=== PATIENT | female | born 1955 | race Caucasian/White ===

== ENCOUNTER 2017-04-22 16:51 | Inpatient (IN) | payer MEDICARE, BC ==
--- NOTE | 2017-04-22 17:07 | EDM.PDOC ---
[id number] Complaint: Behavioral/Psych Stated Complaint: [facility] Time Seen by Provider: 04/22/17 17:03 Source of Information: Reports: EMS History Limitations: Reports: Altered Mental Status - History of Present Illness INITIAL COMMENTS - FREE TEXT/NARRATIVE: Brought in by EMS with increased confusion over past few days. She is unable to give any history. Per staff talking to , concerned that she has been taking some of his medications. Onset: Gradual Duration: Day(s): (2) - Related Data Allergies Allergy/AdvReac Type Severity Reaction Status Date / Time morphine Allergy Unknown Hives Verified 04/24/17 13:06 Penicillins Allergy Unknown Hives Verified 04/24/17 13:06 ranitidine HCl [From Zantac] Allergy Unknown Swelling Verified 04/24/17 13:06 latex Allergy Cannot Verified 04/24/17 13:06 Remember oxycodone Allergy Rash Verified 04/24/17 13:06 Home Meds: Home Meds Carisoprodol [Soma] 350 mg PO QID PRN 01/01/15 [History] predniSONE [Prednisone] 10 mg PO DAILY 01/01/15 [History] Estradiol 1.5 mg PO DAILY 01/03/15 [History] Levothyroxine [Synthroid] 100 mcg PO DAILY 01/03/15 [History] Amitriptyline [Elavil] 25 mg PO BEDTIME 08/07/15 [History] Zolpidem Tartrate 10 mg PO BEDTIME 08/09/15 [History] Citalopram Hydrobromide [Celexa] 20 mg PO DAILY 09/26/15 [History] Pumpkin Seed Extract/Soy Germ [Azo Bladder Control Capsule] 300 mg PO DAILY [History] Hydrocodone/Acetaminophen [Hydrocodon-Acetaminoph 7.5-325] 2 tab PO Q4H PRN 12/23 [History] Multivitamin W/Iron, Minerals [Flintstones Complete] 1 each PO DAILY 09/28/16 [ History] Past Medical History HEENT History: Reports: Cataract Respiratory History: Reports: Bronchitis, Recurrent Gastrointestinal History: Reports: Bowel Obstruction, GERD, Pancreatitis Other Gastrointestinal History: "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" Other Genitourinary History: urethral stricture - cystoscopy - which was several years ago [employer] History: Reports: Neurological History: Reports: MS Psychiatric History: Reports: Addiction, Anxiety Endocrine/Metabolic History: Reports: Diabetes, Type II, Other (See Below) Other Endocrine/Metabolic History: thyroid disease Hematologic History: Reports: Anemia, B12 Deficiency, Blood Transfusion(s) Immunologic History: Reports: SLE Dermatologic History: Reports: Psoriasis - Infectious Disease History Infectious Disease History: Reports: Chicken Pox - Past Surgical History HEENT Surgical History: Reports: Cataract Surgery Female Surgical History: Reports: Hysterectomy Other Musculoskeletal Surgeries/Procedures:: pin in left hip after fx, plate in left arm, plate in left shoulder blade Social & Family History - Tobacco Use Smoking Status *Q: Current Every Day Smoker Years of Tobacco use: 40 Packs/Tins Daily: 1 Used Tobacco, but Quit: No Month Tobacco Last Used: August Second Hand Smoke Exposure: No - Caffeine Use Caffeine Use: Reports: Coffee - Alcohol Use Days Per Week of Alcohol Use: 0 - Recreational Drug Use Recreational Drug Use: No ED ROS GENERAL - Review of Systems Review Of Systems: Unable To Obtain - Physical Exam Exam Limited By: Altered Mental Status General Appearance: Mild Distress, Cachetic, Other (Dirty, dishelved, taking her clothes off) Ears: Normal External Exam, Normal Canal, Normal TMs Nose: Normal Inspection, Normal Mucosa Throat/Mouth: Normal Inspection Head Exam: Atraumatic, Normocephalic Neck: Normal Inspection, Supple Respiratory/Chest: No Respiratory Distress Cardiovascular: Normal Peripheral Pulses, Regular Rate, Rhythm, No Edema, No Murmur GI/Abdominal: Soft, Non-Tender Neuro Exam (Abbreviated): Confused, Disoriented Extremities: Normal Inspection Psychiatric: Other (confused, delusional) Skin Exam: Other (Bruise on left shoulder. Old scars across back. Abrasion and skin tears on right arm.) Course - Vital Signs Last Recorded V/S: Last Vital Signs Temp 36.6 C 04/23/17 08:00 Pulse 88 04/23/17 05:30 Resp 16 04/23/17 08:00 BP 139/70 04/23/17 08:00 Pulse Ox 98 04/23/17 08:00 - Orders/Labs/Meds Labs: Laboratory Tests 04/22/17 04/22/17 04/22/17 Range/Units 16:58 16:58 16:58 WBC 13.2 H (4.5-11.0) K/uL RBC 3.42 (3.30-5.50) M/uL Hgb 12.3 (12.0-15.0) g/dL Hct 36.2 (36.0-48.0) % MCV 106 H (80-98) fL MCH 36 H (27-31) pg MCHC 34 (32-36) % Plt Count 331 (150-400) K/uL Neut % (Auto) 88 H (36-66) % Lymph % (Auto) 7 L (24-44) % [place] % (Auto) 4 (2-6) % Eos % (Auto) 0 L (2-4) % Baso % (Auto) 0 (0-1) % Sodium 135 L (140-148) mmol/L Potassium 4.1 (3.6-5.2) mmol/L Chloride 98 L (100-108) mmol/L Carbon Dioxide 24 (21-32) mmol/L Anion Gap 17.1 H (5.0-14.0) mmol/L BUN 9 (7-18) mg/dL Creatinine 0.8 (0.6-1.0) mg/dL Est Cr Clr Drug Dosing TNP Estimated GFR (MDRD) > 60 (>60) Glucose 181 H (74-106) mg/dL Calcium 8.7 (8.5-10.1) mg/dL Total Bilirubin 0.5 D (0.2-1.0) mg/dL AST 38 H D (15-37) U/L ALT 30 (12-78) U/L Alkaline Phosphatase 49 (46-116) U/L Total Protein 6.5 (6.4-8.2) g/dL Albumin 3.5 (3.4-5.0) g/dL Globulin 3.0 (2.3-3.5) g/dL Albumin/Globulin Ratio 1.2 (1.2-2.2) Urine Color Urine Appearance Urine pH (4.5-8.0) Ur Specific [place] (1.008-1.030) Urine Protein (NEGATIVE) mg/dL Urine Glucose (UA) (NEGATIVE) mg/dL Urine Ketones (NEGATIVE) mg/dL Urine Occult Blood (NEGATIVE) Urine Nitrite (NEGATIVE) Urine Bilirubin (NEGATIVE) Urine Urobilinogen (NORMAL) mg/dL Ur Leukocyte Esterase (NEGATIVE) Urine RBC (0-5) Urine WBC (0-5) Ur Epithelial Cells Amorphous Sediment Urine Bacteria Urine Mucus Salicylates (2.0-20.0) mg/dL Urine Opiates Screen (NEGATIVE) Ur Oxycodone Screen (NEGATIVE) Urine Methadone Screen (NEGATIVE) Ur Propoxyphene Screen (NEGATIVE) Acetaminophen (10.0-30.0) ug/mL Ur Barbiturates Screen (NEGATIVE) Ur Tricyclics Screen (NEGATIVE) Ur Phencyclidine Scrn (NEGATIVE) Ur Amphetamine Screen (NEGATIVE) U Methamphetamines Scrn (NEGATIVE) Urine MDMA Screen (NEGATIVE) U Benzodiazepines Scrn (NEGATIVE) U Cocaine Metab Screen (NEGATIVE) U Marijuana (THC) Screen (NEGATIVE) Ethyl Alcohol < 3 mg/dL 04/22/17 04/22/17 04/22/17 Range/Units 17:02 17:59 18:20 WBC (4.5-11.0) K/uL RBC (3.30-5.50) M/uL Hgb (12.0-15.0) g/dL Hct (36.0-48.0) % MCV (80-98) fL MCH (27-31) pg MCHC (32-36) % Plt Count (150-400) K/uL Neut % (Auto) (36-66) % Lymph % (Auto) (24-44) % [place] % (Auto) (2-6) % Eos % (Auto) (2-4) % Baso % (Auto) (0-1) % Sodium (140-148) mmol/L Potassium (3.6-5.2) mmol/L Chloride (100-108) mmol/L Carbon Dioxide (21-32) mmol/L Anion Gap (5.0-14.0) mmol/L BUN (7-18) mg/dL Creatinine (0.6-1.0) mg/dL Est Cr Clr Drug Dosing Estimated GFR (MDRD) (>60) Glucose (74-106) mg/dL Calcium (8.5-10.1) mg/dL Total Bilirubin (0.2-1.0) mg/dL AST (15-37) U/L ALT (12-78) U/L Alkaline Phosphatase (46-116) U/L Total Protein (6.4-8.2) g/dL Albumin (3.4-5.0) g/dL Globulin (2.3-3.5) g/dL Albumin/Globulin Ratio (1.2-2.2) Urine Color Urine Appearance Urine pH (4.5-8.0) Ur Specific [place] (1.008-1.030) Urine Protein (NEGATIVE) mg/dL Urine Glucose (UA) (NEGATIVE) mg/dL Urine Ketones (NEGATIVE) mg/dL Urine Occult Blood (NEGATIVE) Urine Nitrite (NEGATIVE) Urine Bilirubin (NEGATIVE) Urine Urobilinogen (NORMAL) mg/dL Ur Leukocyte Esterase (NEGATIVE) Urine RBC (0-5) Urine WBC (0-5) Ur Epithelial Cells Amorphous Sediment Urine Bacteria Urine Mucus Salicylates 5.2 (2.0-20.0) mg/dL Urine Opiates Screen Positive H (NEGATIVE) Ur Oxycodone Screen Positive H (NEGATIVE) Urine Methadone Screen Negative (NEGATIVE) Ur Propoxyphene Screen Negative (NEGATIVE) Acetaminophen 5.0 L (10.0-30.0) ug/mL Ur Barbiturates Screen Negative (NEGATIVE) Ur Tricyclics Screen Positive H (NEGATIVE) Ur Phencyclidine Scrn Negative (NEGATIVE) Ur Amphetamine Screen Negative (NEGATIVE) U Methamphetamines Scrn Negative (NEGATIVE) Urine MDMA Screen Negative (NEGATIVE) U Benzodiazepines Scrn Negative (NEGATIVE) U Cocaine Metab Screen Negative (NEGATIVE) U Marijuana (THC) Screen Negative (NEGATIVE) Ethyl Alcohol mg/dL 04/22/17 Range/Units 18:20 WBC (4.5-11.0) K/uL RBC (3.30-5.50) M/uL Hgb (12.0-15.0) g/dL Hct (36.0-48.0) % MCV (80-98) fL MCH (27-31) pg MCHC (32-36) % Plt Count (150-400) K/uL Neut % (Auto) (36-66) % Lymph % (Auto) (24-44) % [place] % (Auto) (2-6) % Eos % (Auto) (2-4) % Baso % (Auto) (0-1) % Sodium (140-148) mmol/L Potassium (3.6-5.2) mmol/L Chloride (100-108) mmol/L Carbon Dioxide (21-32) mmol/L Anion Gap (5.0-14.0) mmol/L BUN (7-18) mg/dL Creatinine (0.6-1.0) mg/dL Est Cr Clr Drug Dosing Estimated GFR (MDRD) (>60) Glucose (74-106) mg/dL Calcium (8.5-10.1) mg/dL Total Bilirubin (0.2-1.0) mg/dL AST (15-37) U/L ALT (12-78) U/L Alkaline Phosphatase (46-116) U/L Total Protein (6.4-8.2) g/dL Albumin (3.4-5.0) g/dL Globulin (2.3-3.5) g/dL Albumin/Globulin Ratio (1.2-2.2) Urine Color Yellow Urine Appearance Clear Urine pH 7.0 (4.5-8.0) Ur Specific [place] 1.010 (1.008-1.030) Urine Protein Negative (NEGATIVE) mg/dL Urine Glucose (UA) Normal (NEGATIVE) mg/dL Urine Ketones Negative (NEGATIVE) mg/dL Urine Occult Blood Negative (NEGATIVE) Urine Nitrite Negative (NEGATIVE) Urine Bilirubin Negative (NEGATIVE) Urine Urobilinogen Normal (NORMAL) mg/dL Ur Leukocyte Esterase Negative (NEGATIVE) Urine RBC 0-5 (0-5) Urine WBC 0-5 (0-5) Ur Epithelial Cells Rare Amorphous Sediment Not seen Urine Bacteria Few Urine Mucus Not seen Salicylates (2.0-20.0) mg/dL Urine Opiates Screen (NEGATIVE) Ur Oxycodone Screen (NEGATIVE) Urine Methadone Screen (NEGATIVE) Ur Propoxyphene Screen (NEGATIVE) Acetaminophen (10.0-30.0) ug/mL Ur Barbiturates Screen (NEGATIVE) Ur Tricyclics Screen (NEGATIVE) Ur Phencyclidine Scrn (NEGATIVE) Ur Amphetamine Screen (NEGATIVE) U Methamphetamines Scrn (NEGATIVE) Urine MDMA Screen (NEGATIVE) U Benzodiazepines Scrn (NEGATIVE) U Cocaine Metab Screen (NEGATIVE) U Marijuana (THC) Screen (NEGATIVE) Ethyl Alcohol mg/dL Meds: Medications Discontinued Medications Generic Name Dose Route Start Last Admin Trade Name Freq PRN Reason Stop Dose Admin Acetaminophen 650 mg 04/23/17 01:34 Tylenol PO Q4H PRN Pain (Mild 1-3)/fever Hydrocodone Bitart/Acetaminophen 2 tab 04/23/17 01:34 [place] 325-7.5 Mg PO Q4H PRN Pain Citalopram Hydrobromide 20 mg 04/23/17 09:00 04/23/17 08:53 Celexa PO 20 mg DAILY NORM Administration Diphenhydramine HCl 25 mg 04/22/17 17:13 04/22/17 17:26 Benadryl IM 04/22/17 17:14 25 mg ONETIME ONE Administration Divalproex Sodium 250 mg 04/23/17 08:00 04/23/17 08:53 Divalproex Sodium PO 250 mg TIDMEALS NORM Administration Docusate Sodium 100 mg 04/23/17 01:34 Colace PO BID PRN Constipation Enoxaparin Sodium 40 mg 04/23/17 01:00 04/23/17 02:16 Lovenox SUBCUT 40 mg DAILY@0100 NORM Administration Enoxaparin Sodium 40 mg 04/23/17 22:00 Lovenox SUBCUT Q24H NORM Estradiol 1.5 mg 04/23/17 09:00 04/23/17 08:53 Estradiol PO 1.5 mg DAILY NORM Administration Furosemide 20 mg 04/23/17 09:30 04/23/17 09:43 Lasix IV 04/23/17 09:31 20 mg ONETIME ONE Administration Haloperidol Lactate 5 mg 04/22/17 17:13 04/22/17 17:27 Haldol IM 04/22/17 17:14 5 mg ONETIME ONE Administration Haloperidol Lactate 2 mg 04/23/17 01:34 Haldol IVPUSH Q2H PRN Agitation Hydrocortisone Sodium Succinate 100 mg 04/23/17 01:34 04/23/17 02:16 Solu-Cortef IVPUSH 04/23/17 01:35 100 mg ONETIME ONE Administration Sodium Chloride 1,000 mls @ 300 mls/hr 04/22/17 22:00 04/22/17 22:39 Normal Saline IV 300 mls/hr ASDIRECTED NORM Administration Sodium Chloride 1,000 mls @ 125 mls/hr 04/23/17 01:34 04/23/17 01:59 Normal Saline IV 125 mls/hr ASDIRECTED NORM Administration Levothyroxine Sodium 100 mcg 04/23/17 07:30 04/23/17 08:53 Synthroid PO 100 mcg ACBREAKFAST NORM Administration Lorazepam 2 mg 04/22/17 17:13 04/22/17 17:26 Ativan IM 04/22/17 17:14 2 mg .ONETIME ONE Administration Magnesium Hydroxide 30 ml 04/23/17 01:34 Milk Of Magnesia PO Q12H PRN Constipation Melatonin 9 mg 04/23/17 01:34 04/23/17 01:55 Melatonin PO Not Given BEDTIME NORM Ondansetron HCl 4 mg 04/23/17 01:34 Zofran IV Q4H PRN Nausea/Vomiting Polyethylene Glycol 17 gm 04/23/17 01:34 Miralax PO DAILY PRN Constipation Prednisone 10 mg 04/23/17 09:00 04/23/17 08:53 Prednisone PO 10 mg DAILY NORM Administration Sodium Chloride 10 ml 04/23/17 01:34 Saline Flush FLUSH ASDIRECTED PRN Keep Vein Open Departure - Departure Disposition: Admitted As Inpatient 66 Clinical Impression: Confusion state, Medication adverse effect - Discharge Information <Veronica Virgen - Last Filed: 04/28/17 07:21> ED HPI GENERAL MEDICAL PROBLEM denies Pain Score (Numeric/FACES): 0 ED ROS GENERAL - Review of Systems Review Of Systems: See Below - Physical Exam Exam: See Below Course - Re-Assessments/Exams Free Text/Narrative Re-Assessment/Exam: 04/23/17 00:50 Pt remained very sleepy from the b52. She did wake up and was oriented and seemed much clmer. Her cat scan of the head was normal. Her drug screen was positive for oxycodone and opiates. Departure - Departure Time of Disposition: 00:52 Condition: Fair
[2017-04-22] MEDS ORDERED: diphenhydrAMINE 50 MG/ML SDV IM ONE (17:13)
[2017-04-22] MEDS ORDERED: LORazepam 2 MG/ML MDV IM ONE (17:13)
[2017-04-22] MEDS ORDERED: Haloperidol Lactate 5 MG/ML SDV IM ONE (17:13)
[2017-04-22] MEDS ORDERED: Sodium Chloride 0.9% 1,000 ML IV SCH (22:00)
[2017-04-23] MEDS ORDERED: Enoxaparin 40 MG/0.4 ML Syringe SUBCUT SCH ×2 (01:00→22:00)
[2017-04-23] MEDS ORDERED: Sodium Chloride 0.9% 10 ML Syringe FLUSH PRN (01:34)
[2017-04-23] MEDS ORDERED: Docusate Sodium 100 MG Cap PO PRN (01:34)
[2017-04-23] MEDS ORDERED: Polyethylene Glycol 3350 Powder 17 GM Packet PO PRN (01:34)
[2017-04-23] MEDS ORDERED: Hydrocortisone Sodium Succinate 100 MG/2 ML SDV IVPUSH ONE (01:34)
[2017-04-23] MEDS ORDERED: Sodium Chloride 0.9% 1,000 ML IV SCH (01:34)
[2017-04-23] MEDS ORDERED: Acetaminophen/HYDROcodone 325-7.5 MG Tab PO PRN (01:34)
[2017-04-23] MEDS ORDERED: Acetaminophen 325 MG Tab PO PRN (01:34)
[2017-04-23] MEDS ORDERED: Magnesium Hydroxide 400 MG/5 ML Susp 30 ML Cup PO PRN (01:34)
[2017-04-23] MEDS ORDERED: Haloperidol Lactate 5 MG/ML SDV IVPUSH PRN (01:34)
[2017-04-23] MEDS ORDERED: Ondansetron 4 MG/2 ML SDV IV PRN (01:34)
[2017-04-23] MEDS ORDERED: Melatonin 3 MG Tab PO SCH (01:34)
--- NOTE | 2017-04-23 01:42 | PCM.HP ---
H&P History of Present Illness - General Date of Service: 04/23/17 Admit Problem/Dx: Admission Diagnosis/Problem Admission Diagnosis/Problem Psychosis Source of Information: Family, Old Records, Provider, RN Notes Reviewed, Significant Other History Limitations: Reports: Altered Mental Status (Sedated secondary to agitation after having arrived in the emergency department) - History of Present Illness Initial Comments - Free Text/Narative: This patient is a 61-year-old woman who was admitted through the emergency department with recent history of psychosis and agitation. She does have a known past history of depression and anxiety. denies that she has been previously diagnosed with bipolar disease. States that she was last normal approximately 6 days ago since then she has had progressive difficulty with paranoia, psychosis, agitation, and severe sleep disturbance. She had been taking her usual medication up until the time this started in thinks that she has been taking her medications over the past week. Today she became very agitated, noted that she had taken some of his oxycodone as well as baclofen. He estimates that she slept 6-8 hours over the past 4 days. Patient when she arrived in the emergency department was extremely agitated and received IV Haldol 5 mg, IV lorazepam 2 mg, and diphenhydramine 25 mg IV. She is unable to provide significant history concerning recent symptoms or events because of current sedation. CT scan of the head was obtained and showed no acute abnormalities. There is no evidence of significant underlying infection or metabolic abnormality. - Related Data Allergies/Adverse Reactions: Allergies Allergy/AdvReac Type Severity Reaction Status Date / Time morphine Allergy Unknown Hives Verified 04/14/17 14:14 Penicillins Allergy Unknown Hives Verified 04/14/17 14:14 ranitidine HCl [From Zantac] Allergy Unknown Swelling Verified 04/14/17 14:14 latex Allergy Cannot Verified 04/14/17 14:14 Remember oxycodone Allergy Rash Verified 04/14/17 14:14 Home Medications: Home Meds Carisoprodol [Soma] 350 mg PO QID PRN 01/01/15 [History] predniSONE [Prednisone] 10 mg PO DAILY 01/01/15 [History] Estradiol 1.5 mg PO DAILY 01/03/15 [History] Levothyroxine [Synthroid] 100 mcg PO DAILY 01/03/15 [History] Amitriptyline [Elavil] 25 mg PO BEDTIME 08/07/15 [History] Zolpidem Tartrate 10 mg PO BEDTIME 08/09/15 [History] Citalopram Hydrobromide [Celexa] 20 mg PO DAILY 09/26/15 [History] Pumpkin Seed Extract/Soy Germ [Azo Bladder Control Capsule] 300 mg PO DAILY [History] Hydrocodone/Acetaminophen [Hydrocodon-Acetaminoph 7.5-325] 2 tab PO Q4H PRN 12/23 [History] Multivitamin W/Iron, Minerals [Flintstones Complete] 1 each PO DAILY 09/28/16 [ History] Past Medical History HEENT History: Reports: Cataract, Impaired Vision Respiratory History: Reports: Bronchitis, Recurrent Gastrointestinal History: Reports: Bowel Obstruction, GERD, Pancreatitis Other Gastrointestinal History: "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" Genitourinary History: Reports: Retention, Urinary, Urinary Incontinence Other Genitourinary History: urethral stricture - cystoscopy - which was several years ago [employer] History: Reports: Musculoskeletal History: Reports: Osteoarthritis, Osteoporosis Neurological History: Reports: MS Psychiatric History: Reports: Addiction, Anxiety Endocrine/Metabolic History: Reports: Diabetes, Type II, Hypothyroidism, Vitamin D Deficiency, Other (See Below) Other Endocrine/Metabolic History: thyroid disease Hematologic History: Reports: Anemia, B12 Deficiency, Blood Transfusion(s) Immunologic History: Reports: SLE Dermatologic History: Reports: Psoriasis - Infectious Disease History Infectious Disease History: Reports: Chicken Pox - Past Surgical History HEENT Surgical History: Reports: Cataract Surgery GI Surgical History: Reports: Bariatric Procedure Other GI Surgeries/Procedures: RNY 1988 Female Surgical History: Reports: Hysterectomy Neurological Surgical History: Reports: None Other Musculoskeletal Surgeries/Procedures:: pin in left hip after fx, plate in left arm, plate in left shoulder blade Social & Family History - Family History Family Medical History: Noncontributory - Tobacco Use Smoking Status *Q: Current Every Day Smoker Years of Tobacco use: 40 Packs/Tins Daily: 1 Used Tobacco, but Quit: No Month Tobacco Last Used: August Second Hand Smoke Exposure: No - Caffeine Use Caffeine Use: Reports: Soda - Alcohol Use Days Per Week of Alcohol Use: 0 - Recreational Drug Use Recreational Drug Use: No H&P Review of Systems - Review of Systems: Review Of Systems: Unable To Obtain General: Reports: ROS unobtainable (Patient is very sedated and lethargic) Exam - Exam Exam: See Below - Vital Signs Vital Signs: Last Vital Signs Temp 97 F 04/23/17 00:20 Pulse 62 04/23/17 00:20 Resp 17 04/23/17 00:20 BP 131/67 04/23/17 00:20 Pulse Ox 95 04/23/17 00:20 Weight: 126 lb 8.725 oz - Exam Quality Assessment: Supplemental Oxygen, DVT Prophylaxis General: Sedated, Lethargic HEENT: Conjunctiva Clear, Mucosa Moist & [place], Nares Patent, Normal Nasal Septum , Posterior Pharynx Clear, Pupils Equal, Pupils Reactive Neck: Supple, Trachea Midline, +2 Carotid Pulse wo Bruit Lungs: Clear to Auscultation, Normal Respiratory Effort Cardiovascular: Regular Rate, Regular Rhythm, Normal S1, Normal S2. No: Irregular Rhythm, Bradycardia, Tachycardia, Systolic Murmur, Diastolic Murmur Abdomen: Normal Bowel Sounds, Soft Extremities: 3, Normal Inspection, 10 Skin: Warm, Dry, Intact Psychiatric: Agitated (On admission) - Patient Data Result Diagrams: 04/22/17 16:58 04/22/17 16:58 *Q Meaningful Use (ADM) - VTE *Q VTE Criteria *Q: - VTE Risk Assess *Q Each Risk Factor Represents 1 Point: Swollen Legs, Current Total Score 1 Point Risk Factors: 1 Each Risk Factor Represents 2 Points: Age 60 - 74 Years Total Score 2 Point Risk Factors: 2 Each Risk Factor Represents 3 Points: None Total Score 3 Point Risk Factors: 0 Each Risk Factor Represents 5 Points: None Total Score 5 Point Risk Factors: 0 Venous Thromboembolism Risk Factor Score *Q: 3 - Stroke *Q Stroke Criteria *Q: - AMI *Q AMI Criteria *Q: Problem List Initiated/Reviewed/Updated: Yes Orders Last 24hrs: Active Orders 24 hr Category Date Time Status Patient Status [ADT] Routine ADT 04/23/17 01:34 Active Intake and Output [RC] QSHIFT Care 04/23/17 01:34 Active Neuro Check [RC] Q4HR Care 04/23/17 01:34 Active Notify Provider Vital Signs [RC] ASDIRECTED Care 04/23/17 01:34 Active Oxygen Therapy [RC] PRN Care 04/23/17 01:34 Active Peripheral IV Care [RC] . DIRECTED Care 04/23/17 01:34 Active Pulse Oximetry [RC] CONTINUOUS Care 04/23/17 01:34 Active Up With Assistance [RC] ASDIRECTED Care 04/23/17 01:34 Active VTE/DVT Education [RC] Per Unit Routine Care 04/23/17 01:34 Active Vital Signs [RC] Q4H Care 04/23/17 01:34 Active Regular Diet [DIET] Diet 04/23/17 Breakfast Active BASIC METABOLIC PANEL,BMP [CHEM] AM Lab 04/23/17 05:11 Ordered CBC WITH AUTO DIFF [HEME] AM Lab 04/23/17 05:11 Ordered TSH ULTRASENSITIVE [CHEM] AM Lab 04/23/17 05:11 Ordered Acetaminophen [Tylenol] Med 04/23/17 01:34 Ordered 650 mg PO Q4H PRN Divalproex Sodium Med 04/23/17 08:00 Ordered 250 mg PO TIDMEALS Docusate Sodium [Colace] Med 04/23/17 01:34 Ordered 100 mg PO BID PRN Enoxaparin [Lovenox] Med 04/23/17 01:34 Ordered 40 mg SUBCUT DAILY Haloperidol Lactate [Haldol] Med 04/23/17 01:34 Ordered 2 mg IVPUSH Q2H PRN Hydrocortisone Sod Succinate [Solu-CORTEF] Med 04/23/17 01:34 Once 100 mg IVPUSH ONETIME ONE Magnesium Hydroxide [Milk of Magnesia] Med 04/23/17 01:34 Ordered 30 ml PO Q12H PRN Melatonin Med 04/23/17 01:34 Ordered 9 mg PO BEDTIME Ondansetron [Zofran] Med 04/23/17 01:34 Ordered 4 mg IV Q4H PRN Polyethylene Glycol 3350 [MiraLAX] Med 04/23/17 01:34 Ordered 17 gm PO DAILY PRN Sodium Chloride 0.9% [Normal Saline] 1,000 ml Med 04/23/17 01:34 Ordered IV ASDIRECTED Sodium Chloride 0.9% [Saline Flush] Med 04/23/17 01:34 Ordered 10 ml FLUSH ASDIRECTED PRN Peripheral IV Insertion Adult [OM.PC] Routine Oth 04/23/17 01:34 Ordered Resuscitation Status Routine Resus Stat 04/23/17 00:57 Ordered Medication Orders Acetaminophen (Tylenol) 650 mg PO Q4H PRN PRN Reason: Pain (Mild 1-3)/fever Hydrocodone Bitart/Acetaminophen ([place] 325-7.5 Mg) 2 tab PO Q4H PRN PRN Reason: Pain Divalproex Sodium (Divalproex Sodium) 250 mg PO TIDMEALS NORM Docusate Sodium (Colace) 100 mg PO BID PRN PRN Reason: Constipation Enoxaparin Sodium (Lovenox) 40 mg SUBCUT DAILY [facility] Estradiol (Estradiol) 1.5 mg PO DAILY [facility] Haloperidol Lactate (Haldol) 2 mg IVPUSH Q2H PRN PRN Reason: Agitation Hydrocortisone Sodium Succinate (Solu-Cortef) 100 mg IVPUSH ONETIME ONE Stop: 04/23/17 01:35 Sodium Chloride (Normal Saline) 1,000 mls @ 125 mls/hr IV ASDIRECTED NORM Levothyroxine Sodium (Synthroid) 100 mcg PO DAILY [facility] Magnesium Hydroxide (Milk Of Magnesia) 30 ml PO Q12H PRN PRN Reason: Constipation Melatonin (Melatonin) 9 mg PO BEDTIME [facility] Non-Formulary Medication (Citalopram Hydrobromide [Celexa]) 20 mg PO DAILY [facility] Ondansetron HCl (Zofran) 4 mg IV Q4H PRN PRN Reason: Nausea/Vomiting Polyethylene Glycol (Miralax) 17 gm PO DAILY PRN PRN Reason: Constipation Prednisone (Prednisone) 10 mg PO DAILY [facility] Sodium Chloride (Saline Flush) 10 ml FLUSH ASDIRECTED PRN PRN Reason: Keep Vein Open Assessment/Plan Comment:: ASSESSMENT AND PLAN AGITATION WITH UNDERLYING PSYCHOSIS-history of depression and anxiety, question possible bipolar disease, complicated by recent sleep deprivation. Became extremely agitated today, but has noted hallucinations and paranoia over the past 6 days. No evidence of underlying infection or significant metabolic abnormality. No new medication although it's reported that she did take some of her 's oxycodone and baclofen today. -Admit to ICU for monitoring -Continue SSRI therapy -Hold amitriptyline -Haldol 2 mg IV as needed for agitation -Depakote 250 mg by mouth 3 times a day -Melatonin 9 mg by mouth daily at bedtime -If medically stable in a.m. plan for transfer to inpatient psychiatric facility -IV fluids for hydration HYPOTHYROIDISM -Continue outpatient medical therapy -TSH in a.m. MAINTENANCE ISSUES -DVT prophylaxis; Lovenox 40 mg subcutaneous daily -GI prophylaxis; continue outpatient PPI therapy -[place] catheter; not indicated -Nutrition; regular diet -Nicotine dependence; not required CODE STATUS-FULL CODE ADMISSION STATUS-patient will be admitted to inpatient status, expect at least a 2 night hospital stay for evaluation and management of problems as outlined above. At the time of this admission I do not reasonably expected evaluation and management of this problem will require more than a 96 hour hospital stay. DISPOSITION-anticipate discharge to home after the hospital stay. PRIMARY CARE PROVIDER-
[2017-04-23] MEDS ORDERED: Levothyroxine 100 MCG Tab PO SCH (07:30)
[2017-04-23] MEDS ORDERED: Divalproex Sodium Delayed-Release 250 MG Tab.CR PO SCH (08:00)
--- NOTE | 2017-04-23 08:21 | PCM.PN ---
- General Info Date of Service: 04/23/17 Functional Status: Reports: pain controlled, tolerating diet, ambulating, urinating - Review of Systems General: Reports: No Symptoms Pulmonary: Reports: no symptoms Cardiovascular: Reports: No Symptoms Gastrointestinal: Reports: No symptoms Psychiatric: Reports: agitation, hallucinations Systems Review Comment:: This patient is more alert and interactive this morning, still paranoid and delusional. Vital signs have been stable and she has been afebrile. No significant metabolic abnormalities noted on laboratory testing this morning. She is medically stable and cleared for transfer to psychiatric facility. - Patient Data Vitals - most recent: Last Vital Signs Temp 97.9 F 04/23/17 02:01 Pulse 88 04/23/17 05:30 Resp 13 04/23/17 05:30 BP 122/68 04/23/17 05:30 Pulse Ox 92 L 04/23/17 05:30 Weight - most recent: 123 lb I&O - last 24 hours: Intake & Output 04/22/17 04/23/17 04/23/17 22:59 06:59 14:59 Intake Total 580 Output Total 550 Balance 30 Lab Results last 24 hrs: Laboratory Results - last 24 hr 04/23/17 Range/Units 05:40 Sodium 144 (140-148) mmol/L Potassium 3.7 (3.6-5.2) mmol/L Chloride 109 H (100-108) mmol/L Carbon Dioxide 26 (21-32) mmol/L Anion Gap 12.7 (5.0-14.0) mmol/L BUN 6 L (7-18) mg/dL Creatinine 0.6 (0.6-1.0) mg/dL Est Cr Clr Drug Dosing 77.88 mL/min Estimated GFR (MDRD) > 60 (>60) Glucose 91 (74-106) mg/dL Calcium 8.1 L (8.5-10.1) mg/dL TSH, Ultra Sensitive 3.096 (0.358-3.740) uIU/mL Med Orders - Current: Current Medications Acetaminophen (Tylenol) 650 mg PO Q4H PRN PRN Reason: Pain (Mild 1-3)/fever Hydrocodone Bitart/Acetaminophen ([place] 325-7.5 Mg) 2 tab PO Q4H PRN PRN Reason: Pain Citalopram Hydrobromide (Celexa) 20 mg PO DAILY [facility] Divalproex Sodium (Divalproex Sodium) 250 mg PO TIDMEALS [facility] Docusate Sodium (Colace) 100 mg PO BID PRN PRN Reason: Constipation Enoxaparin Sodium (Lovenox) 40 mg SUBCUT Q24H [facility] Estradiol (Estradiol) 1.5 mg PO DAILY [facility] Haloperidol Lactate (Haldol) 2 mg IVPUSH Q2H PRN PRN Reason: Agitation Levothyroxine Sodium (Synthroid) 100 mcg PO ACBREAKFAST [facility] Magnesium Hydroxide (Milk Of Magnesia) 30 ml PO Q12H PRN PRN Reason: Constipation Melatonin (Melatonin) 9 mg PO BEDTIME [facility] Last Admin: 04/23/17 01:55 Dose: Not Given Ondansetron HCl (Zofran) 4 mg IV Q4H PRN PRN Reason: Nausea/Vomiting Polyethylene Glycol (Miralax) 17 gm PO DAILY PRN PRN Reason: Constipation Prednisone (Prednisone) 10 mg PO DAILY [facility] Sodium Chloride (Saline Flush) 10 ml FLUSH ASDIRECTED PRN PRN Reason: Keep Vein Open Discontinued Medications Diphenhydramine HCl (Benadryl) 25 mg IM ONETIME ONE Stop: 04/22/17 17:14 Last Admin: 04/22/17 17:26 Dose: 25 mg Enoxaparin Sodium (Lovenox) 40 mg SUBCUT DAILY@0100 [facility] Last Admin: 04/23/17 02:16 Dose: 40 mg Haloperidol Lactate (Haldol) 5 mg IM ONETIME ONE Stop: 04/22/17 17:14 Last Admin: 04/22/17 17:27 Dose: 5 mg Hydrocortisone Sodium Succinate (Solu-Cortef) 100 mg IVPUSH ONETIME ONE Stop: 04/23/17 01:35 Last Admin: 04/23/17 02:16 Dose: 100 mg Sodium Chloride (Normal Saline) 1,000 mls @ 300 mls/hr IV ASDIRECTED [facility] Last Admin: 04/22/17 22:39 Dose: 300 mls/hr Sodium Chloride (Normal Saline) 1,000 mls @ 125 mls/hr IV ASDIRECTED [facility] Last Admin: 04/23/17 01:59 Dose: 125 mls/hr Lorazepam (Ativan) 2 mg IM .ONETIME ONE Stop: 04/22/17 17:14 Last Admin: 04/22/17 17:26 Dose: 2 mg - Exam Quality Assessment: DVT prophylaxis General: alert, cooperative, no acute distress Lungs: Clear to auscultation, Normal respiratory effort Cardiovascular: Regular Rate, Regular Rhythm, No Murmurs Abdomen: bowel sounds present, soft, no tenderness, no distension Extremities: no edema Skin: warm, dry, intact - Problem List Review Problem List Initiated/Reviewed/Updated: Yes - My Orders Last 24 Hours: My Active Orders 04/23/17 00:57 Resuscitation Status Routine 04/23/17 01:34 Patient Status [ADT] Routine Intake and Output [RC] QSHIFT Neuro Check [RC] Q4HR Notify Provider Vital Signs [RC] ASDIRECTED Oxygen Therapy [RC] PRN Pulse Oximetry [RC] CONTINUOUS Up With Assistance [RC] ASDIRECTED VTE/DVT Education [RC] Per Unit Routine Vital Signs [RC] Q2H Acetaminophen [Tylenol] 650 mg PO Q4H PRN Docusate Sodium [Colace] 100 mg PO BID PRN Haloperidol Lactate [Haldol] 2 mg IVPUSH Q2H PRN Magnesium Hydroxide [Milk of Magnesia] 30 ml PO Q12H PRN Melatonin 9 mg PO BEDTIME Ondansetron [Zofran] 4 mg IV Q4H PRN Polyethylene Glycol 3350 [MiraLAX] 17 gm PO DAILY PRN Sodium Chloride 0.9% [Saline Flush] 10 ml FLUSH ASDIRECTED PRN Peripheral IV Insertion Adult [OM.PC] Routine 04/23/17 05:40 CBC WITH AUTO DIFF [HEME] AM 04/23/17 08:00 Divalproex Sodium 250 mg PO TIDMEALS 04/23/17 08:17 Convert IV to Saline Lock [OM.PC] Routine 04/23/17 22:00 Enoxaparin [Lovenox] 40 mg SUBCUT Q24H 04/23/17 Breakfast Regular Diet [DIET] - Plan Plan:: ASSESSMENT AND PLAN AGITATION WITH UNDERLYING PSYCHOSIS-history of depression and anxiety, question possible bipolar disease, complicated by recent sleep deprivation. She was able to sleep through the night after she was heavily medicated in the emergency department, this morning continues to experience paranoia and delusions. She is currently medically stable and can be transferred to a psychiatric facility. -Admit to ICU for monitoring -Continue SSRI therapy -Hold amitriptyline -Haldol 2 mg IV as needed for agitation -Depakote 250 mg by mouth 3 times a day -Melatonin 9 mg by mouth daily at bedtime -Plan for transfer to psychiatric facility today -Saline lock IV HYPOTHYROIDISM-TSH this morning within normal range -Continue outpatient medical therapy MAINTENANCE ISSUES -DVT prophylaxis; Lovenox 40 mg subcutaneous daily -GI prophylaxis; continue outpatient PPI therapy -[place] catheter; not indicated -Nutrition; regular diet -Nicotine dependence; not required CODE STATUS-FULL CODE ADMISSION STATUS-patient will be admitted to inpatient status, expect at least a 2 night hospital stay for evaluation and management of problems as outlined above. At the time of this admission I do not reasonably expected evaluation and management of this problem will require more than a 96 hour hospital stay. DISPOSITION-anticipate discharge to home after the hospital stay. PRIMARY CARE PROVIDER-
[2017-04-23 08:27] VITALS: BP 139/70
--- NOTE | 2017-04-23 08:43 | CR ---
Chest 1V Frontal INDICATION: Leukocytosis, agitation FINDINGS: Comparison 01/01/2015. Normal heart size. No focal infiltrate. ORIF distal left clavicle.
[2017-04-23] MEDS ORDERED: Citalopram 20 MG Tab PO SCH (09:00)
[2017-04-23] MEDS ORDERED: Estradiol 0.5 MG Tab PO SCH (09:00)
[2017-04-23] MEDS ORDERED: predniSONE 10 MG Tab PO SCH (09:00)
[2017-04-23] MEDS ORDERED: Furosemide 20 MG/2 ML VIAL IV ONE (09:30)
--- NOTE | 2017-04-23 09:50 | PCM.DCSUM1 ---
Discharge Summary - Hospital Course Brief History: This patient is a 61-year-old woman who was admitted through the emergency department for evaluation and monitoring of severe agitation and delusional ideation. - Discharge Data Discharge Date: 04/23/17 Discharge Disposition: Home, Self-Care 01 Condition: Fair - Discharge Diagnosis/Problem(s) (1) Delusional disorder SNOMED Code(s): 62875364 ICD Code: F22 - DELUSIONAL DISORDERS Status: Acute Current Visit: Yes (2) Anxiety SNOMED Code(s): 13733401 ICD Code: F41.9 - ANXIETY DISORDER, UNSPECIFIED Status: Acute Current Visit: Yes (3) Sleep deprivation SNOMED Code(s): 174192593, 510376183 ICD Code: Z72.820 - SLEEP DEPRIVATION Status: Acute Current Visit: Yes (4) Confusion state SNOMED Code(s): 863314487 ICD Code: F44.89 - OTHER DISSOCIATIVE AND CONVERSION DISORDERS Status: Acute Current Visit: Yes - Patient Summary/Data Hospital Course: This patient is a 61-year-old woman who has a past history of depression and anxiety. During the past week and difficulty sleeping and experiencing severe sleep deprivation associated with agitation and delirium. She received sedation in the emergency department with Haldol, lorazepam, and Benadryl because of severe agitation. This morning she is alert and interactive although still delusional. Her feels like this is her baseline state. She currently denies suicidal or homicidal ideation and despite my strong recommendation that she be transferred for psychiatric evaluation she refuses this. At the present time I have no ability to place her on hold given current symptoms and denial of suicidal or homicidal ideation. feels comfortable taking her home and does not feel that she is a threat to herself or anyone else. She refuses any scheduling of outpatient psychological or psychiatric evaluation. She also refuses any consideration of additional psych meds at this time. Activity will be as tolerated and she will resume her usual diet. Follow-up appointment will be scheduled with her primary care provider within one week. - Patient Instructions Diet: Usual Diet as Tolerated Activity: As Tolerated Other/Special Instructions: Schedule follow-up appointment with primary care provider within 1 week. - Discharge Plan Home Medications: Home Meds Carisoprodol [Soma] 350 mg PO QID PRN 01/01/15 [History] predniSONE [Prednisone] 10 mg PO DAILY 01/01/15 [History] Estradiol 1.5 mg PO DAILY 01/03/15 [History] Levothyroxine [Synthroid] 100 mcg PO DAILY 01/03/15 [History] Amitriptyline [Elavil] 25 mg PO BEDTIME 08/07/15 [History] Zolpidem Tartrate 10 mg PO BEDTIME 08/09/15 [History] Citalopram Hydrobromide [Celexa] 20 mg PO DAILY 09/26/15 [History] Pumpkin Seed Extract/Soy Germ [Azo Bladder Control Capsule] 300 mg PO DAILY [History] Hydrocodone/Acetaminophen [Hydrocodon-Acetaminoph 7.5-325] 2 tab PO Q4H PRN 12/23 [History] Multivitamin W/Iron, Minerals [Flintstones Complete] 1 each PO DAILY 09/28/16 [ History] Forms: ED Department Discharge Referrals: PCP,None [Primary Care Provider] - - Patient Data Vitals - Most Recent: Last Vital Signs Temp 97.9 F 04/23/17 08:00 Pulse 88 04/23/17 05:30 Resp 16 04/23/17 08:00 BP 139/70 04/23/17 08:00 Pulse Ox 98 04/23/17 08:00 Weight - Most Recent: 123 lb I&O - Last 24 hours: Intake & Output 04/22/17 04/23/17 04/23/17 22:59 06:59 14:59 Intake Total 580 Output Total 550 600 Balance 30 -600 Lab Results - Last 24 hrs: Laboratory Results - last 24 hr 04/23/17 04/23/17 Range/Units 05:40 05:40 WBC 9.0 (4.5-11.0) K/uL RBC 3.15 L (3.30-5.50) M/uL Hgb 11.2 L (12.0-15.0) g/dL Hct 33.9 L (36.0-48.0) % MCV 108 H (80-98) fL MCH 36 H (27-31) pg MCHC 33 (32-36) % Plt Count 237 (150-400) K/uL Neut % (Auto) 88 H (36-66) % Lymph % (Auto) 8 L (24-44) % [place] % (Auto) 4 (2-6) % Eos % (Auto) 1 L (2-4) % Baso % (Auto) 0 (0-1) % Sodium 144 (140-148) mmol/L Potassium 3.7 (3.6-5.2) mmol/L Chloride 109 H (100-108) mmol/L Carbon Dioxide 26 (21-32) mmol/L Anion Gap 12.7 (5.0-14.0) mmol/L BUN 6 L (7-18) mg/dL Creatinine 0.6 (0.6-1.0) mg/dL Est Cr Clr Drug Dosing 77.88 mL/min Estimated GFR (MDRD) > 60 (>60) Glucose 91 (74-106) mg/dL Calcium 8.1 L (8.5-10.1) mg/dL TSH, Ultra Sensitive 3.096 (0.358-3.740) uIU/mL Med Orders - Current: Current Medications Acetaminophen (Tylenol) 650 mg PO Q4H PRN PRN Reason: Pain (Mild 1-3)/fever Hydrocodone Bitart/Acetaminophen ([place] 325-7.5 Mg) 2 tab PO Q4H PRN PRN Reason: Pain Citalopram Hydrobromide (Celexa) 20 mg PO DAILY [facility] Last Admin: 04/23/17 08:53 Dose: 20 mg Divalproex Sodium (Divalproex Sodium) 250 mg PO TIDMEALS [facility] Last Admin: 04/23/17 08:53 Dose: 250 mg Docusate Sodium (Colace) 100 mg PO BID PRN PRN Reason: Constipation Enoxaparin Sodium (Lovenox) 40 mg SUBCUT Q24H [facility] Estradiol (Estradiol) 1.5 mg PO DAILY [facility] Last Admin: 04/23/17 08:53 Dose: 1.5 mg Haloperidol Lactate (Haldol) 2 mg IVPUSH Q2H PRN PRN Reason: Agitation Levothyroxine Sodium (Synthroid) 100 mcg PO ACBREAKFAST [facility] Last Admin: 04/23/17 08:53 Dose: 100 mcg Magnesium Hydroxide (Milk Of Magnesia) 30 ml PO Q12H PRN PRN Reason: Constipation Melatonin (Melatonin) 9 mg PO BEDTIME [facility] Last Admin: 04/23/17 01:55 Dose: Not Given Ondansetron HCl (Zofran) 4 mg IV Q4H PRN PRN Reason: Nausea/Vomiting Polyethylene Glycol (Miralax) 17 gm PO DAILY PRN PRN Reason: Constipation Prednisone (Prednisone) 10 mg PO DAILY [facility] Last Admin: 04/23/17 08:53 Dose: 10 mg Sodium Chloride (Saline Flush) 10 ml FLUSH ASDIRECTED PRN PRN Reason: Keep Vein Open Discontinued Medications Diphenhydramine HCl (Benadryl) 25 mg IM ONETIME ONE Stop: 04/22/17 17:14 Last Admin: 04/22/17 17:26 Dose: 25 mg Enoxaparin Sodium (Lovenox) 40 mg SUBCUT DAILY@0100 [facility] Last Admin: 04/23/17 02:16 Dose: 40 mg Furosemide (Lasix) 20 mg IV ONETIME ONE Stop: 04/23/17 09:31 Last Admin: 04/23/17 09:43 Dose: 20 mg Haloperidol Lactate (Haldol) 5 mg IM ONETIME ONE Stop: 04/22/17 17:14 Last Admin: 04/22/17 17:27 Dose: 5 mg Hydrocortisone Sodium Succinate (Solu-Cortef) 100 mg IVPUSH ONETIME ONE Stop: 04/23/17 01:35 Last Admin: 04/23/17 02:16 Dose: 100 mg Sodium Chloride (Normal Saline) 1,000 mls @ 300 mls/hr IV ASDIRECTED [facility] Last Admin: 04/22/17 22:39 Dose: 300 mls/hr Sodium Chloride (Normal Saline) 1,000 mls @ 125 mls/hr IV ASDIRECTED [facility] Last Admin: 04/23/17 01:59 Dose: 125 mls/hr Lorazepam (Ativan) 2 mg IM .ONETIME ONE Stop: 04/22/17 17:14 Last Admin: 04/22/17 17:26 Dose: 2 mg *Q Meaningful Use (DIS) - VTE *Q VTE Criteria *Q: - Stroke *Q Stroke Criteria *Q: - AMI *Q AMI Criteria *Q:
== END 2017-04-23 10:32 | disposition home or self-care (01) | DRG 885 ==
LOC: JP.ED 16:51 → UNDOADMIN 04-23 00:54 → JP.ICU 04-23 00:54 → UNDODISIN 04-23 10:32
PROVIDERS: ADMIT Hospitalist; ATTEND Hospitalist
DX: F22 Delusional disorders (principal); R41.0 Disorientation, unspecified; F23 Brief psychotic disorder; K21.9 Gastro-esophageal reflux disease without esophagitis; E11.9 Type 2 diabetes mellitus without complications; F60.0 Paranoid personality disorder; F41.9 Anxiety disorder, unspecified; M32.9 Systemic lupus erythematosus, unspecified; E53.8 Deficiency of other specified B group vitamins; F17.210 Nicotine dependence, cigarettes, uncomplicated; Z72.820 Sleep deprivation; R45.1 Restlessness and agitation; E03.9 Hypothyroidism, unspecified; F32.9 Major depressive disorder, single episode, unspecified; T42.8X4A Poisoning by antiparkinsonism drugs and other central muscle-tone depressants, undetermined, initial encounter; Y92.009 Unspecified place in unspecified non-institutional (private) residence as the place of occurrence of the external cause; E55.9 Vitamin D deficiency, unspecified; M19.90 Unspecified osteoarthritis, unspecified site; Z98.84 Bariatric surgery status; Z79.52 Long term (current) use of systemic steroids; Z91.040 Latex allergy status; Z88.5 Allergy status to narcotic agent; Z88.0 Allergy status to penicillin; Z88.8 Allergy status to other drugs, medicaments and biological substances; T40.2X4A Poisoning by other opioids, undetermined, initial encounter
CPT/HCPCS: 36415; 70450; 80053; 80305; 81001; 85025; 96360; 96361; 96372; 99285; G0480 ×3; J1200; J1630; J2060; J7040; 71010; 71010-26; 80048; 84443; A9270-GY; J1650; J1720; J1940

== ENCOUNTER 2017-04-24 12:36 | Emergency (ER) | payer MEDICARE, BC ==
[2017-04-24] MEDS ORDERED: LORazepam 0.5 MG Tab PO ONE ×2 (13:19→19:26)
--- NOTE | 2017-04-24 13:23 | EDM.PDOC ---
<OfficerEver - Last Filed: 04/24/17 13:20> ED HPI GENERAL MEDICAL PROBLEM - General Chief Complaint: Behavioral/Psych Stated Complaint: ANXIOUS Time Seen by Provider: 04/24/17 12:51 Source of Information: Reports: Patient, Family, RN Notes Reviewed History Limitations: Reports: Altered Mental Status - History of Present Illness INITIAL COMMENTS - FREE TEXT/NARRATIVE: 61-year-old female presents emergency department today with family for psychiatric evaluation, she denies any suicidal or homicidal ideation however she does admit to auditory hallucinations she is currently speaking with God was telling her what to do. She was admitted to the hospital on 23 April for psychosis her mentation did clear after overnight observation was discharged to home however she returns today for similar outbreaks - Related Data Allergies Allergy/AdvReac Type Severity Reaction Status Date / Time morphine Allergy Unknown Hives Verified 04/24/17 13:06 Penicillins Allergy Unknown Hives Verified 04/24/17 13:06 ranitidine HCl [From Zantac] Allergy Unknown Swelling Verified 04/24/17 13:06 latex Allergy Cannot Verified 04/24/17 13:06 Remember oxycodone Allergy Rash Verified 04/24/17 13:06 Home Meds: Home Meds Carisoprodol [Soma] 350 mg PO QID PRN 01/01/15 [History] predniSONE [Prednisone] 10 mg PO DAILY 01/01/15 [History] Estradiol 1.5 mg PO DAILY 01/03/15 [History] Levothyroxine [Synthroid] 100 mcg PO DAILY 01/03/15 [History] Amitriptyline [Elavil] 25 mg PO BEDTIME 08/07/15 [History] Zolpidem Tartrate 10 mg PO BEDTIME 08/09/15 [History] Citalopram Hydrobromide [Celexa] 20 mg PO DAILY 09/26/15 [History] Pumpkin Seed Extract/Soy Germ [Azo Bladder Control Capsule] 300 mg PO DAILY [History] Hydrocodone/Acetaminophen [Hydrocodon-Acetaminoph 7.5-325] 2 tab PO Q4H PRN 12/23 [History] Multivitamin W/Iron, Minerals [Flintstones Complete] 1 each PO DAILY 09/28/16 [ History] Past Medical History HEENT History: Reports: Cataract, Impaired Vision Respiratory History: Reports: Bronchitis, Recurrent Gastrointestinal History: Reports: Bowel Obstruction, GERD, Pancreatitis Other Gastrointestinal History: "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" Genitourinary History: Reports: Retention, Urinary, Urinary Incontinence Other Genitourinary History: urethral stricture - cystoscopy - which was several years ago [employer] History: Reports: Musculoskeletal History: Reports: Osteoarthritis, Osteoporosis Neurological History: Reports: MS Psychiatric History: Reports: Addiction, Anxiety Endocrine/Metabolic History: Reports: Diabetes, Type II, Hypothyroidism, Vitamin D Deficiency, Other (See Below) Other Endocrine/Metabolic History: thyroid disease Hematologic History: Reports: Anemia, B12 Deficiency, Blood Transfusion(s) Immunologic History: Reports: SLE Dermatologic History: Reports: Psoriasis - Infectious Disease History Infectious Disease History: Reports: Chicken Pox - Past Surgical History HEENT Surgical History: Reports: Cataract Surgery GI Surgical History: Reports: Bariatric Procedure Other GI Surgeries/Procedures: RNY 1988 Female Surgical History: Reports: Hysterectomy Neurological Surgical History: Reports: None Other Musculoskeletal Surgeries/Procedures:: pin in left hip after fx, plate in left arm, plate in left shoulder blade Social & Family History - Family History Family Medical History: Noncontributory - Tobacco Use Smoking Status *Q: Never Smoker Years of Tobacco use: 40 Packs/Tins Daily: 1 Used Tobacco, but Quit: No Month Tobacco Last Used: August Second Hand Smoke Exposure: No - Caffeine Use Caffeine Use: Reports: Soda - Alcohol Use Days Per Week of Alcohol Use: 0 - Recreational Drug Use Recreational Drug Use: No ED ROS GENERAL - Review of Systems Review Of Systems: Unable To Obtain (altered mental status) ED EXAM, BEHAVIORAL HEALTH - Physical Exam Exam: See Below Exam Limited By: Altered Mental Status General Appearance: Alert, No Apparent Distress Eye Exam: Bilateral Eye: Normal Inspection Respiratory/Chest: No Respiratory Distress, Lungs Clear, Normal Breath Sounds, No Accessory Muscle Use Cardiovascular: Regular Rate, Rhythm, No Murmur Psychiatric: Alert, Restless, Agitated, Inattentive, Poor Eye Contact, Flight of Ideas, Scientologist Delusions, Auditory Hallucinations. No: Homicidal Thoughts , Suicidal Plan, Suicidal Thoughts, Visual Hallucinations COURSE, BEHAVIORAL HEALTH COMP - Course Vital Signs: Last Vital Signs Temp 36.9 C 04/24/17 13:03 Pulse 102 H 04/24/17 13:03 Resp 18 04/24/17 13:03 BP 190/85 H 04/24/17 13:03 Pulse Ox 98 04/24/17 13:03 Orders, Labs, Meds: Laboratory Tests 04/24/17 04/24/17 04/24/17 Range/Units 12:59 12:59 13:29 WBC 10.4 (4.5-11.0) K/uL RBC 3.45 (3.30-5.50) M/uL Hgb 12.5 (12.0-15.0) g/dL Hct 36.7 (36.0-48.0) % MCV 106 H (80-98) fL MCH 36 H (27-31) pg MCHC 34 (32-36) % Plt Count 321 (150-400) K/uL Neut % (Auto) 71 H (36-66) % Lymph % (Auto) 21 L (24-44) % [place] % (Auto) 7 H (2-6) % Eos % (Auto) 1 L (2-4) % Baso % (Auto) 1 (0-1) % Sodium (140-148) mmol/L Potassium (3.6-5.2) mmol/L Chloride (100-108) mmol/L Carbon Dioxide (21-32) mmol/L Anion Gap (5.0-14.0) mmol/L BUN (7-18) mg/dL Creatinine (0.6-1.0) mg/dL Est Cr Clr Drug Dosing mL/min Estimated GFR (MDRD) (>60) Glucose (74-106) mg/dL Calcium (8.5-10.1) mg/dL Total Bilirubin (0.2-1.0) mg/dL AST (15-37) U/L ALT (12-78) U/L Alkaline Phosphatase (46-116) U/L Total Protein (6.4-8.2) g/dL Albumin (3.4-5.0) g/dL Globulin (2.3-3.5) g/dL Albumin/Globulin Ratio (1.2-2.2) TSH, Ultra Sensitive (0.358-3.740) uIU/mL Urine Color Yellow Urine Appearance Clear Urine pH 7.0 (4.5-8.0) Ur Specific [place] 1.000 L (1.008-1.030) Urine Protein Negative (NEGATIVE) mg/dL Urine Glucose (UA) Normal (NEGATIVE) mg/dL Urine Ketones 15 H (NEGATIVE) mg/dL Urine Occult Blood Negative (NEGATIVE) Urine Nitrite Negative (NEGATIVE) Urine Bilirubin Negative (NEGATIVE) Urine Urobilinogen Normal (NORMAL) mg/dL Ur Leukocyte Esterase Negative (NEGATIVE) Urine RBC 0-5 (0-5) Urine WBC 0-5 (0-5) Ur Epithelial Cells Few Amorphous Sediment Not seen Urine Bacteria Not seen Urine Mucus Not seen Urine Opiates Screen Positive H (NEGATIVE) Ur Oxycodone Screen Positive H (NEGATIVE) Urine Methadone Screen Negative (NEGATIVE) Ur Propoxyphene Screen Negative (NEGATIVE) Ur Barbiturates Screen Negative (NEGATIVE) Ur Tricyclics Screen Positive H (NEGATIVE) Ur Phencyclidine Scrn Negative (NEGATIVE) Ur Amphetamine Screen Negative (NEGATIVE) U Methamphetamines Scrn Negative (NEGATIVE) Urine MDMA Screen Negative (NEGATIVE) U Benzodiazepines Scrn Positive H (NEGATIVE) U Cocaine Metab Screen Negative (NEGATIVE) U Marijuana (THC) Screen Negative (NEGATIVE) 04/24/17 04/24/17 Range/Units 13:29 13:29 WBC (4.5-11.0) K/uL RBC (3.30-5.50) M/uL Hgb (12.0-15.0) g/dL Hct (36.0-48.0) % MCV (80-98) fL MCH (27-31) pg MCHC (32-36) % Plt Count (150-400) K/uL Neut % (Auto) (36-66) % Lymph % (Auto) (24-44) % [place] % (Auto) (2-6) % Eos % (Auto) (2-4) % Baso % (Auto) (0-1) % Sodium 140 (140-148) mmol/L Potassium 3.5 L (3.6-5.2) mmol/L Chloride 102 (100-108) mmol/L Carbon Dioxide 26 (21-32) mmol/L Anion Gap 15.5 H (5.0-14.0) mmol/L BUN 5 L (7-18) mg/dL Creatinine 0.8 (0.6-1.0) mg/dL Est Cr Clr Drug Dosing 62.25 mL/min Estimated GFR (MDRD) > 60 (>60) Glucose 103 (74-106) mg/dL Calcium 8.8 (8.5-10.1) mg/dL Total Bilirubin 0.5 (0.2-1.0) mg/dL AST 33 (15-37) U/L ALT 34 (12-78) U/L Alkaline Phosphatase 49 (46-116) U/L Total Protein 6.7 (6.4-8.2) g/dL Albumin 3.8 (3.4-5.0) g/dL Globulin 2.9 (2.3-3.5) g/dL Albumin/Globulin Ratio 1.3 (1.2-2.2) TSH, Ultra Sensitive 6.219 H (0.358-3.740) uIU/mL Urine Color Urine Appearance Urine pH (4.5-8.0) Ur Specific [place] (1.008-1.030) Urine Protein (NEGATIVE) mg/dL Urine Glucose (UA) (NEGATIVE) mg/dL Urine Ketones (NEGATIVE) mg/dL Urine Occult Blood (NEGATIVE) Urine Nitrite (NEGATIVE) Urine Bilirubin (NEGATIVE) Urine Urobilinogen (NORMAL) mg/dL Ur Leukocyte Esterase (NEGATIVE) Urine RBC (0-5) Urine WBC (0-5) Ur Epithelial Cells Amorphous Sediment Urine Bacteria Urine Mucus Urine Opiates Screen (NEGATIVE) Ur Oxycodone Screen (NEGATIVE) Urine Methadone Screen (NEGATIVE) Ur Propoxyphene Screen (NEGATIVE) Ur Barbiturates Screen (NEGATIVE) Ur Tricyclics Screen (NEGATIVE) Ur Phencyclidine Scrn (NEGATIVE) Ur Amphetamine Screen (NEGATIVE) U Methamphetamines Scrn (NEGATIVE) Urine MDMA Screen (NEGATIVE) U Benzodiazepines Scrn (NEGATIVE) U Cocaine Metab Screen (NEGATIVE) U Marijuana (THC) Screen (NEGATIVE) Medications Discontinued Medications Generic Name Dose Route Start Last Admin Trade Name Freq PRN Reason Stop Dose Admin Hydrocodone Bitart/Acetaminophen 1 tab 04/24/17 20:16 04/24/17 20:22 [place] 325-5 Mg PO 04/24/17 20:17 1 tab ONETIME ONE Administration Lorazepam 0.5 mg 04/24/17 13:19 04/24/17 13:36 Ativan PO 04/24/17 13:20 0.5 mg ONETIME ONE Administration Lorazepam 0.5 mg 04/24/17 19:26 04/24/17 19:35 Ativan PO 04/24/17 19:27 0.5 mg ONETIME ONE Administration Ondansetron HCl 4 mg 04/24/17 14:25 04/24/17 14:29 Zofran Odt PO 04/24/17 14:26 4 mg ONETIME ONE Administration Ondansetron HCl 4 mg 04/24/17 19:26 04/24/17 19:35 Zofran Odt PO 04/24/17 19:27 4 mg ONETIME ONE Administration Departure - Departure Disposition: DC/Tfer to Psych Hosp/Unit 65 Clinical Impression: Delusional disorder, Anxiety, Hallucinations - Discharge Information Forms: ED Department Discharge Additional Instructions: pt will be discharged to [facility] will be transported by Son. Son feels very confident in his abilities to transport mother. Aliya has desire to go and is going on her own free will. <Sujata Arthur - Last Filed: 04/24/17 20:27> Departure - Departure Time of Disposition: 20:25 Condition: Good
[2017-04-24] MEDS ORDERED: Ondansetron 4 MG Tab.DIS PO ONE ×2 (14:25→19:26)
[2017-04-24] MEDS ORDERED: Acetaminophen/HYDROcodone 325-5 MG Tab PO ONE (20:16)
[2017-04-24 20:29] VITALS: BP 164/97
== END 2017-04-24 20:28 ==
LOC: JP.ED 12:36
DX: F22 Delusional disorders (principal); F41.9 Anxiety disorder, unspecified; R44.3 Hallucinations, unspecified; H54.7 Unspecified visual loss; M32.9 Systemic lupus erythematosus, unspecified; E11.9 Type 2 diabetes mellitus without complications; E03.9 Hypothyroidism, unspecified; L40.9 Psoriasis, unspecified; Z90.710 Acquired absence of both cervix and uterus; Z86.2 Personal history of diseases of the blood and blood-forming organs and certain disorders involving the immune mechanism; Z88.5 Allergy status to narcotic agent; Z88.0 Allergy status to penicillin; Z91.040 Latex allergy status; Z98.49 Cataract extraction status, unspecified eye; Z88.8 Allergy status to other drugs, medicaments and biological substances; Z79.899 Other long term (current) drug therapy
CPT/HCPCS: 36415; 80053; 80305; 81001; 84443; 85025; 99284; A9270; 99285

== ENCOUNTER 2017-06-16 21:37 | Emergency (ER) | payer MEDICARE, BC ==
[~2017-06-16 21:37] MED LIST: Naloxone 0.4 MG/ML SDV ONE
[2017-06-16] MEDS ORDERED: Sodium Chloride 0.9% 10 ML Syringe FLUSH PRN (21:47)
[2017-06-16] MEDS ORDERED: Naloxone 0.4 MG/ML SDV IVPUSH PRN (21:47)
--- NOTE | 2017-06-16 21:54 | EDM.PDOC ---
ED HPI GENERAL MEDICAL PROBLEM - General Chief Complaint: Drug or Alcohol Abuse Stated Complaint: [facility] Time Seen by Provider: 06/16/17 21:40 Source of Information: Reports: Patient, EMS, Old Records History Limitations: Reports: Altered Mental Status - History of Present Illness INITIAL COMMENTS - FREE TEXT/NARRATIVE: 61 yo female brought in by EMS for sedation. Vitals stable en route. EMS states lots of bottles of meds laying around that contained narcotic pain meds, sleeping meds, and antidepressants and muscle relaxers. Neighbors state she is often sleepy like this. Patient is arousable and has no complaints. Says she had just taken her bedtime meds before EMS was called. Onset: Today Onset Date: 06/16/17 Onset Time: 20:30 Duration: Minutes:, Constant Location: Reports: Generalized Quality: Reports: Other (no pain) Severity: Moderate Improves with: Reports: None Worsens with: Reports: None Context: Reports: Other (Has Rx's for many sedating meds.) Associated Symptoms: Reports: No Other Symptoms Treatments INCLINOMETER TESTER: Reports: Other (see below) (none) - Related Data Allergies Allergy/AdvReac Type Severity Reaction Status Date / Time morphine Allergy Unknown Hives Verified 05/26/17 14:12 Penicillins Allergy Unknown Hives Verified 05/26/17 14:12 ranitidine HCl [From Zantac] Allergy Unknown Swelling Verified 05/26/17 14:12 diphenhydramine Allergy Other Verified 05/26/17 14:12 [From Benadryl] latex Allergy Cannot Verified 05/26/17 14:12 Remember oxycodone Allergy Rash Verified 05/26/17 14:12 Home Meds: Home Meds Carisoprodol [Soma] 350 mg PO QID PRN 01/01/15 [History] predniSONE [Prednisone] 10 mg PO DAILY 01/01/15 [History] Estradiol 1.5 mg PO DAILY 01/03/15 [History] Levothyroxine [Synthroid] 100 mcg PO DAILY 01/03/15 [History] Amitriptyline [Elavil] 25 mg PO BEDTIME 08/07/15 [History] Zolpidem Tartrate 10 mg PO BEDTIME 08/09/15 [History] Citalopram Hydrobromide [Celexa] 20 mg PO DAILY 09/26/15 [History] Pumpkin Seed Extract/Soy Germ [Azo Bladder Control Capsule] 300 mg PO DAILY [History] Hydrocodone/Acetaminophen [Hydrocodon-Acetaminoph 7.5-325] 2 tab PO Q4H PRN 12/23 [History] Multivitamin W/Iron, Minerals [Flintstones Complete] 1 each PO DAILY 09/28/16 [ History] Past Medical History HEENT History: Reports: Cataract, Impaired Vision Respiratory History: Reports: Bronchitis, Recurrent Gastrointestinal History: Reports: Bowel Obstruction, GERD, Pancreatitis Other Gastrointestinal History: "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" Genitourinary History: Reports: Retention, Urinary, Urinary Incontinence Other Genitourinary History: urethral stricture - cystoscopy - which was several years ago DIRECTOR CALL History: Reports: Musculoskeletal History: Reports: Osteoarthritis, Osteoporosis Neurological History: Reports: MS Psychiatric History: Reports: Addiction, Anxiety Endocrine/Metabolic History: Reports: Diabetes, Type II, Hypothyroidism, Vitamin D Deficiency, Other (See Below) Other Endocrine/Metabolic History: thyroid disease Hematologic History: Reports: Anemia, B12 Deficiency, Blood Transfusion(s) Immunologic History: Reports: SLE Dermatologic History: Reports: Psoriasis - Infectious Disease History Infectious Disease History: Reports: Chicken Pox - Past Surgical History HEENT Surgical History: Reports: Cataract Surgery GI Surgical History: Reports: Bariatric Procedure Other GI Surgeries/Procedures: RNY 1988 Female Surgical History: Reports: Hysterectomy Neurological Surgical History: Reports: None Other Musculoskeletal Surgeries/Procedures:: pin in left hip after fx, plate in left arm, plate in left shoulder blade Social & Family History - Family History Family Medical History: Noncontributory - Tobacco Use Smoking Status *Q: Never Smoker Years of Tobacco use: 40 Packs/Tins Daily: 1 Used Tobacco, but Quit: No Month Tobacco Last Used: August Second Hand Smoke Exposure: No - Caffeine Use Caffeine Use: Reports: Soda - Alcohol Use Days Per Week of Alcohol Use: 0 - Recreational Drug Use Recreational Drug Use: No ED ROS GENERAL - Review of Systems Review Of Systems: See Below Constitutional: Reports: No Symptoms HEENT: Reports: No Symptoms Respiratory: Reports: No Symptoms Cardiovascular: Reports: No Symptoms GI/Abdominal: Reports: No Symptoms : Reports: No Symptoms Musculoskeletal: Reports: No Symptoms Skin: Reports: No Symptoms Neurological: Reports: Other (sedation) Psychiatric: Reports: No Symptoms - Physical Exam Exam: See Below Exam Limited By: No Limitations General Appearance: WD/WN, No Apparent Distress, Lethargic Eye Exam: Bilateral Eye: Normal Inspection Ears: Normal External Exam, Normal Canal, Hearing Grossly Normal Nose: Normal Inspection, Normal Mucosa, No Blood Throat/Mouth: Normal Inspection, Normal Lips, Normal Oropharynx, Normal Voice, No Airway Compromise Head Exam: Atraumatic, Normocephalic Neck: Normal Inspection, Supple, Non-Tender Respiratory/Chest: No Respiratory Distress, Lungs Clear, Normal Breath Sounds, No Accessory Muscle Use Cardiovascular: Regular Rate, Rhythm, No Edema GI/Abdominal: Normal Bowel Sounds, Soft, Non-Tender, No Distention Neuro Exam (Abbreviated): Alert, Oriented, CN II-XII Intact, Normal Cognition, No Motor/Sensory Deficits Extremities: Pedal Edema (1+ both LE's below the knees.) Psychiatric: Normal Affect, Normal Mood Skin Exam: Warm, Dry, Intact, Normal Color, No Rash Course - Vital Signs Text/Narrative:: saline lock, Narcan 0.4 mg IV Slept until ? her Ambien wore off and then was fully awake, son to return and take her home. Last Recorded V/S: Last Vital Signs Temp 36.0 C 06/16/17 21:47 Pulse 74 06/16/17 21:47 Resp 14 06/16/17 21:47 BP 129/73 06/16/17 21:47 Pulse Ox 97 06/16/17 21:47 - Orders/Labs/Meds Orders: Active Orders 24 hr Category Date Time Status Sodium Chloride 0.9% [Saline Flush] Med 06/16/17 21:47 Active 10 ml FLUSH ASDIRECTED PRN Saline Lock Insert [OM.PC] Routine Oth 06/16/17 21:47 Ordered Medication Orders Sodium Chloride (Saline Flush) 10 ml FLUSH ASDIRECTED PRN PRN Reason: Keep Vein Open Meds: Medications Generic Name Dose Route Start Last Admin Trade Name Freq PRN Reason Stop Dose Admin Sodium Chloride 10 ml 06/16/17 21:47 Saline Flush FLUSH ASDIRECTED PRN Keep Vein Open Discontinued Medications Generic Name Dose Route Start Last Admin Trade Name Freq PRN Reason Stop Dose Admin Naloxone HCl 0.4 mg 06/16/17 21:47 06/16/17 21:55 Narcan IVPUSH 06/16/17 21:48 0.4 mg ONETIME PRN Administration Sedation Departure - Departure Time of Disposition: 00:45 Disposition: Home, Self-Care 01 Condition: Fair Clinical Impression: Polypharmacy, Sedated due to multiple medications - Discharge Information Referrals: PCP,None [Primary Care Provider] - Forms: ED Department Discharge - My Orders Last 24 Hours: My Active Orders 06/16/17 21:47 Sodium Chloride 0.9% [Saline Flush] 10 ml FLUSH ASDIRECTED PRN Saline Lock Insert [OM.PC] Routine - Assessment/Plan Last 24 Hours: My Active Orders 06/16/17 21:47 Sodium Chloride 0.9% [Saline Flush] 10 ml FLUSH ASDIRECTED PRN Saline Lock Insert [OM.PC] Routine
[2017-06-17 00:37] VITALS: BP 135/74
== END 2017-06-17 01:05 | disposition home or self-care (01) ==
LOC: JP.ED 21:37
DX: F13.90 Sedative, hypnotic, or anxiolytic use, unspecified, uncomplicated (principal); K21.9 Gastro-esophageal reflux disease without esophagitis; M19.90 Unspecified osteoarthritis, unspecified site; M81.0 Age-related osteoporosis without current pathological fracture; G35 Multiple sclerosis; F41.9 Anxiety disorder, unspecified; E11.9 Type 2 diabetes mellitus without complications; E03.9 Hypothyroidism, unspecified; Z88.0 Allergy status to penicillin; Z88.5 Allergy status to narcotic agent; Z88.8 Allergy status to other drugs, medicaments and biological substances; Z91.040 Latex allergy status; Z90.710 Acquired absence of both cervix and uterus; Z98.84 Bariatric surgery status; Z98.49 Cataract extraction status, unspecified eye; Z98.890 Other specified postprocedural states; Z79.899 Other long term (current) drug therapy; F13.20 Sedative, hypnotic or anxiolytic dependence, uncomplicated
CPT/HCPCS: 96374; 99284; J2310

== ENCOUNTER 2017-08-06 05:51 | Day surgery (SDC) | payer MEDICARE, BC ==
[2017-08-06] MEDS ORDERED: Lactated Ringers 1,000 ML IV SCH (06:30)
[2017-08-06] MEDS ORDERED: Cyanocobalamin (Vitamin B12) 1,000 MCG/ML SDV IM ONE (06:30)
[2017-08-06] MEDS ORDERED: fentaNYL 100 MCG/2 ML SDV ONE (07:14)
[2017-08-06] MEDS ORDERED: Propofol 200 MG/20 ML SDV ONE (07:14)
[2017-08-06] MEDS ORDERED: MVI, Adult with Vitamin K 10 ML, Thiamine 200 MG, Chromium/Copper/Mang/Selen/Zn 1 ML in... IV ONE ×4 (07:30)
[2017-08-06] MEDS ORDERED: Glycopyrrolate 0.2 MG/ML 2 ML SDV IVPUSH ONE (07:30)
[2017-08-06 09:51] VITALS: BP 146/72
--- NOTE | 2017-08-11 12:28 | OR ---
DATE OF PROCEDURE: 08/06/2017 PREOPERATIVE DIAGNOSIS: Nausea, status post Leobardo-en-Y gastric bypass. 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 OPERATIVE PROCEDURE: Upper GI endoscopy with biopsies of gastric pouch for CLOtest. ANESTHESIA: IV sedation. INDICATION FOR PROCEDURE: This is a 61-year-old female presenting with some worsening problems with nausea. She takes Pepcid and Zofran, but despite that has nausea frequently on an empty stomach. The plan is to proceed with upper GI endoscopy with biopsies as indicated. Potential risks including bleeding and perforation were discussed, and the patient wishes to proceed. DETAILS OF PROCEDURE: The patient was taken to the operating room, placed in a left lateral decubitus position, after which the upper GI endoscope was passed orally through the length of the esophagus and into the gastric pouch, from there through the gastrojejunostomy roughly 20 cm into the Leobardo limb. Findings included normal esophagus and EG junction area within the gastric pouch and extending into the gastrojejunostomy. There is large amount of bezoar type material, some of this is in the blind end of the Leobardo limb and stomach, extending up to the gastrojejunostomy into the pouch. This was associated with some redness although the surface was occupied by the bezoar. There is no stricturing or points of obstruction along the course and no ulcerations were seen. Biopsies were obtained from the gastric pouch, sent for CLOtest for H. pylori. Minimal bleeding from the biopsy sites was seen and the procedure then concluded. The patient was taken to the recovery room in satisfactory condition. Plan will be to start the patient on anti-bezoar diet and dietary will be seeing the patient today regarding followup surgery in one month. Pablo Ghotra MD /[id number]
== END 2017-08-06 11:25 | disposition home or self-care (01) ==
LOC: JP.SDS 05:51
PROVIDERS: ATTEND Surgery
DX: T18.2XXA Foreign body in stomach, initial encounter (principal); K21.9 Gastro-esophageal reflux disease without esophagitis; F32.9 Major depressive disorder, single episode, unspecified; E03.9 Hypothyroidism, unspecified; Z98.84 Bariatric surgery status; Z88.0 Allergy status to penicillin; Z88.8 Allergy status to other drugs, medicaments and biological substances; Z91.040 Latex allergy status
CPT/HCPCS: 43239; 87081; J2704; J3010; J3411; J3420; J7120; J3490

== ENCOUNTER 2017-09-07 04:39 | Inpatient (IN) | payer MEDICARE, BC ==
[2017-09-07] MEDS ORDERED: Sodium Chloride 0.9% 10 ML Syringe FLUSH PRN (04:41)
[2017-09-07] MEDS ORDERED: HYDROmorphone 0.5 MG/0.5 ML Syringe IVPUSH ONE (04:43)
[2017-09-07] MEDS ORDERED: Sodium Chloride 0.9% 1,000 ML IV SCH (04:45)
--- NOTE | 2017-09-07 05:28 | EDM.PDOC ---
<Bud Paulson - Last Filed: 09/07/17 13:44> ED HPI GENERAL MEDICAL PROBLEM - General Chief Complaint: Lower Extremity Injury/Pain Stated Complaint: MEDICAL VIA [facility] Time Seen by Provider: 09/07/17 05:23 - Related Data Allergies Allergy/AdvReac Type Severity Reaction Status Date / Time morphine Allergy Unknown Hives Verified 09/07/17 17:29 Penicillins Allergy Unknown Hives Verified 09/07/17 09:54 ranitidine HCl [From Zantac] Allergy Unknown Swelling Verified 09/07/17 09:54 diphenhydramine Allergy Other Verified 09/07/17 09:54 [From Benadryl] latex Allergy Cannot Verified 09/07/17 09:54 Remember oxycodone Allergy Rash Verified 09/07/17 09:54 Home Meds: Home Meds Carisoprodol [Soma] 350 mg PO QID PRN 01/01/15 [History] predniSONE [Prednisone] 10 mg PO DAILY 01/01/15 [History] Estradiol 1.5 mg PO DAILY 01/03/15 [History] Levothyroxine [Synthroid] 100 mcg PO DAILY 01/03/15 [History] Amitriptyline [Elavil] 75 mg PO BEDTIME 08/07/15 [History] Zolpidem Tartrate 10 mg PO BEDTIME 08/09/15 [History] Pumpkin Seed Extract/Soy Germ [Azo Bladder Control Capsule] 300 mg PO DAILY [History] Hydrocodone/Acetaminophen [Hydrocodon-Acetaminoph 7.5-325] 2 tab PO Q4H PRN 12/23 [History] Multivitamin W/Iron, Minerals [Flintstones Complete] 1 each PO DAILY 09/28/16 [ History] Calcium Citrate/Vitamin D3 [Calcium Citrate + D] 1 tab PO BID 08/05/17 [History] Cholecalciferol (Vitamin D3) [Vitamin D] 5,000 units PO DAILY 08/05/17 [History] Cyanocobalamin (Vitamin B-12) [Vitamin B-12] 1,000 mcg SL DAILY 08/05/17 [ History] Loratadine 10 mg PO DAILY 08/05/17 [History] Ondansetron [Zofran ODT] 4 mg PO Q4H PRN 08/05/17 [History] Vitamin B Complex [B Complex] 1 tab PO DAILY 08/05/17 [History] Famotidine [Pepcid] 40 mg PO BID 08/06/17 [History] Escitalopram [Lexapro] 10 mg PO DAILY 09/07/17 [History] Course - Vital Signs Last Recorded V/S: Last Vital Signs Temp 36.9 C 09/07/17 17:59 Pulse 89 09/07/17 17:59 Resp 16 09/07/17 17:59 BP 131/62 09/07/17 17:59 Pulse Ox 95 09/07/17 17:59 - Orders/Labs/Meds Orders: Active Orders 24 hr Category Date Time Status Sherwood Catheter Insertion [Insert Urinary Catheter] [OM. Care 09/07/17 07:00 Ordered PC] Q24H Urinary Catheter Assessment [RC] Q12H Care 09/07/17 06:56 Active NPO [Nothing Per Oral Diet] [DIET] Diet 09/07/17 Breakfast Active Pelvis wo Cont [CT] Stat Exams 09/07/17 06:09 Taken Sodium Chloride 0.9% [Saline Flush] Med 09/07/17 04:41 Active 10 ml FLUSH ASDIRECTED PRN Saline Lock Insert [OM.PC] Routine Oth 09/07/17 04:41 Ordered Medication Orders Hydrocodone Bitart/Acetaminophen (Stuart 325-5 Mg) 2 tab PO Q4H PRN PRN Reason: Pain Al Hydroxide/Mg Hydroxide (Mag-Al Plus) 30 ml PO Q4H PRN PRN Reason: Constipation Amitriptyline HCl (Elavil) 75 mg PO BEDTIME NORM Aspirin (Ecotrin) 325 mg PO DAILY NORM Bisacodyl (Dulcolax) 10 mg PO DAILY PRN PRN Reason: Constipation Calcium Carbonate (Caltrate 600+D 1500 Mg-400 Units) 1 tab PO BID NORM Carisoprodol (Soma) 350 mg PO QID PRN PRN Reason: Muscle Spasm Cholecalciferol (Vitamin D3) 5,000 units PO DAILY [facility] Cyanocobalamin (Vitamin B12) 1,000 mcg SL DAILY NORM Diazepam (Valium.) 5 mg PO Q6H PRN PRN Reason: Spasms Last Admin: 09/07/17 16:46 Dose: 5 mg Docusate Sodium (Colace) 100 mg PO BID [facility] Escitalopram Oxalate (Lexapro) 10 mg PO DAILY [facility] Famotidine (Pepcid) 40 mg PO BID [facility] Hydromorphone HCl (Dilaudid) 0.5 - 1 mg IVPUSH Q1H PRN PRN Reason: Pain Last Admin: 09/07/17 17:54 Dose: 1 mg Admin: 09/07/17 11:17 Dose: 1 mg Sodium Chloride (Normal Saline) 1,000 mls @ 150 mls/hr IV ASDIRECTED NORM Last Admin: 09/07/17 18:03 Dose: 150 mls/hr Infusion: 09/07/17 16:01 Dose: 150 mls/hr Admin: 09/07/17 09:20 Dose: 150 mls/hr Clindamycin Phosphate 600 mg/ (Sodium Chloride) 54 mls @ 100 mls/hr IV Q6H NORM Stop: 09/08/17 06:33 Last Admin: 09/07/17 18:03 Dose: 100 mls/hr Influenza Virus Vaccine (Fluzone Quad [id number]) 60 mcg IM .ONCE ONE Stop: 09/08/17 10:01 Levothyroxine Sodium (Synthroid) 100 mcg PO ACBREAKFAST [facility] Loratadine (Claritin) 10 mg PO DAILY [facility] Magnesium Hydroxide (Milk Of Magnesia) 30 ml PO BID PRN PRN Reason: Constipation Naloxone HCl (Narcan) 0.1 mg IVPUSH ONETIME PRN PRN Reason: Oversedation Stop: 09/07/17 23:00 Ondansetron HCl (Zofran) 8 mg IVPUSH Q4H PRN PRN Reason: Nausea/Vomiting Pneumococcal Polyvalent Vaccine (Pneumovax 23) 0.5 ml IM .ONCE ONE Stop: 09/08/17 10:01 Prednisone (Prednisone) 10 mg PO DAILY [facility] Senna (Senna) 8.6 mg PO BID PRN PRN Reason: Constipation Sodium Chloride (Saline Flush) 10 ml FLUSH ASDIRECTED PRN PRN Reason: Keep Vein Open Last Admin: 09/07/17 05:01 Dose: 10 ml Tramadol HCl (Ultram) 100 mg PO Q6H PRN PRN Reason: Pain Last Admin: 09/07/17 16:46 Dose: 100 mg Zolpidem Tartrate (Ambien) 5 mg PO BEDTIME PRN PRN Reason: Sleep Labs: Laboratory Tests 1009/07/17 09/07/17 Range/Units 04:59 04:59 04:59 WBC 10.4 (4.5-11.0) K/uL RBC 3.71 (3.30-5.50) M/uL Hgb 12.4 (12.0-15.0) g/dL Hct 38.7 (36.0-48.0) % MCV 104 H (80-98) fL MCH 33 H (27-31) pg MCHC 32 (32-36) % Plt Count 303 (150-400) K/uL Neut % (Auto) 53 (36-66) % Lymph % (Auto) 37 (24-44) % Cherry % (Auto) 7 H (2-6) % Eos % (Auto) 3 (2-4) % Baso % (Auto) 1 (0-1) % Sodium 132 L (140-148) mmol/L Potassium 4.2 (3.6-5.2) mmol/L Chloride 96 L (100-108) mmol/L Carbon Dioxide 27 (21-32) mmol/L Anion Gap 13.2 (5.0-14.0) mmol/L BUN 18 D (7-18) mg/dL Creatinine 0.9 (0.6-1.0) mg/dL Est Cr Clr Drug Dosing 52.64 mL/min Estimated GFR (MDRD) > 60 (>60) Glucose 126 H (74-106) mg/dL Calcium 8.6 (8.5-10.1) mg/dL Total Bilirubin 0.2 D (0.2-1.0) mg/dL AST 30 (15-37) U/L ALT 35 (12-78) U/L Alkaline Phosphatase 51 (46-116) U/L Creatine Kinase (26-192) U/L Total Protein 6.6 (6.4-8.2) g/dL Albumin 3.4 (3.4-5.0) g/dL Globulin 3.2 (2.3-3.5) g/dL Albumin/Globulin Ratio 1.1 L (1.2-2.2) Urine Color Urine Appearance Urine pH (4.5-8.0) Ur Specific [place] (1.008-1.030) Urine Protein (NEGATIVE) mg/dL Urine Glucose (UA) (NEGATIVE) mg/dL Urine Ketones (NEGATIVE) mg/dL Urine Occult Blood (NEGATIVE) Urine Nitrite (NEGATIVE) Urine Bilirubin (NEGATIVE) Urine Urobilinogen (NORMAL) mg/dL Ur Leukocyte Esterase (NEGATIVE) Urine RBC (0-5) Urine WBC (0-5) Ur Epithelial Cells Amorphous Sediment Urine Bacteria Urine Mucus Ethyl Alcohol < 3 mg/dL 09/07/17 09/07/17 Range/Units 05:31 07:19 WBC (4.5-11.0) K/uL RBC (3.30-5.50) M/uL Hgb (12.0-15.0) g/dL Hct (36.0-48.0) % MCV (80-98) fL MCH (27-31) pg MCHC (32-36) % Plt Count (150-400) K/uL Neut % (Auto) (36-66) % Lymph % (Auto) (24-44) % Cherry % (Auto) (2-6) % Eos % (Auto) (2-4) % Baso % (Auto) (0-1) % Sodium (140-148) mmol/L Potassium (3.6-5.2) mmol/L Chloride (100-108) mmol/L Carbon Dioxide (21-32) mmol/L Anion Gap (5.0-14.0) mmol/L BUN (7-18) mg/dL Creatinine (0.6-1.0) mg/dL Est Cr Clr Drug Dosing mL/min Estimated GFR (MDRD) (>60) Glucose (74-106) mg/dL Calcium (8.5-10.1) mg/dL Total Bilirubin (0.2-1.0) mg/dL AST (15-37) U/L ALT (12-78) U/L Alkaline Phosphatase (46-116) U/L Creatine Kinase 95 (26-192) U/L Total Protein (6.4-8.2) g/dL Albumin (3.4-5.0) g/dL Globulin (2.3-3.5) g/dL Albumin/Globulin Ratio (1.2-2.2) Urine Color Yellow Urine Appearance Clear Urine pH 5.0 (4.5-8.0) Ur Specific [place] 1.020 (1.008-1.030) Urine Protein Negative (NEGATIVE) mg/dL Urine Glucose (UA) Normal (NEGATIVE) mg/dL Urine Ketones Negative (NEGATIVE) mg/dL Urine Occult Blood Negative (NEGATIVE) Urine Nitrite Negative (NEGATIVE) Urine Bilirubin Negative (NEGATIVE) Urine Urobilinogen Normal (NORMAL) mg/dL Ur Leukocyte Esterase Negative (NEGATIVE) Urine RBC Not seen (0-5) Urine WBC Not seen (0-5) Ur Epithelial Cells Rare Amorphous Sediment Not seen Urine Bacteria Not seen Urine Mucus Few Ethyl Alcohol mg/dL Meds: Medications Generic Name Dose Route Start Last Admin Trade Name Freq PRN Reason Stop Dose Admin Hydrocodone Bitart/Acetaminophen 2 tab 09/07/17 17:41 Stuart 325-5 Mg PO Q4H PRN Pain Al Hydroxide/Mg Hydroxide 30 ml 09/07/17 13:47 Mag-Al Plus PO Q4H PRN Constipation Amitriptyline HCl 75 mg 09/07/17 21:00 Elavil PO BEDTIME [facility] Aspirin 325 mg 09/08/17 09:00 Ecotrin PO DAILY NORM Bisacodyl 10 mg 09/07/17 13:47 Dulcolax PO DAILY PRN Constipation Calcium Carbonate 1 tab 09/07/17 21:00 Caltrate 600+D 1500 Mg-400 Units PO BID [facility] Carisoprodol 350 mg 09/07/17 17:49 Soma PO QID PRN Muscle Spasm Cholecalciferol 5,000 units 09/08/17 09:00 Vitamin D3 PO DAILY [facility] Cyanocobalamin 1,000 mcg 09/08/17 09:00 Vitamin B12 SL DAILY [facility] Diazepam 5 mg 09/07/17 14:25 09/07/17 16:46 Valium. PO 5 mg Q6H PRN Administration Spasms Docusate Sodium 100 mg 09/07/17 21:00 Colace PO BID [facility] Escitalopram Oxalate 10 mg 09/08/17 09:00 Lexapro PO DAILY [facility] Famotidine 40 mg 09/07/17 21:00 Pepcid PO BID [facility] Hydromorphone HCl 0.5 - 1 mg 09/07/17 10:48 09/07/17 17:54 Dilaudid IVPUSH 1 mg Q1H PRN Administration Pain Sodium Chloride 1,000 mls @ 150 mls/hr 09/07/17 09:15 09/07/17 18:03 Normal Saline IV 150 mls/hr ASDIRECTED NORM Administration Clindamycin Phosphate 600 mg/ 54 mls @ 100 mls/hr 09/07/17 18:00 09/07/17 18: 03 Sodium Chloride IV 09/08/17 06:33 100 mls/hr Q6H NORM Administration Influenza Virus Vaccine 60 mcg 09/08/17 10:00 Fluzone Quad [id number] IM 09/08/17 10:01 .ONCE ONE Levothyroxine Sodium 100 mcg 09/08/17 07:30 Synthroid PO ACBREAKFAST NORM Loratadine 10 mg 09/08/17 09:00 Claritin PO DAILY NORM Magnesium Hydroxide 30 ml 09/07/17 13:47 Milk Of Magnesia PO BID PRN Constipation Naloxone HCl 0.1 mg 09/07/17 13:47 Narcan IVPUSH 09/07/17 23:00 ONETIME PRN Oversedation Ondansetron HCl 8 mg 09/07/17 13:47 Zofran IVPUSH Q4H PRN Nausea/Vomiting Pneumococcal Polyvalent Vaccine 0.5 ml 09/08/17 10:00 Pneumovax 23 IM 09/08/17 10:01 .ONCE ONE Prednisone 10 mg 09/08/17 09:00 Prednisone PO DAILY NORM Senna 8.6 mg 09/07/17 13:47 Senna PO BID PRN Constipation Sodium Chloride 10 ml 09/07/17 04:41 09/07/17 05:01 Saline Flush FLUSH 10 ml ASDIRECTED PRN Administration Keep Vein Open Tramadol HCl 100 mg 09/07/17 13:47 09/07/17 16:46 Ultram PO 100 mg Q6H PRN Administration Pain Zolpidem Tartrate 5 mg 09/07/17 13:47 Ambien PO BEDTIME PRN Sleep Discontinued Medications Generic Name Dose Route Start Last Admin Trade Name Freq PRN Reason Stop Dose Admin Hydrocodone Bitart/Acetaminophen 2 tab 09/08/17 13:51 Stuart 325-5 Mg PO Q4H PRN Pain Bupivacaine HCl/Epinephrine Bitart Confirm 09/07/17 10:11 09/07/17 13:35 Marcaine 0.5%/Epinephrine 1:200,000 Administered 09/07/17 10:12 20 ml Dose Administration 50 ml .ROUTE .STK-MED ONE Carisoprodol 350 mg 09/07/17 18:00 Soma PO BEDTIME NORM Diphenhydramine HCl 25 mg 09/07/17 13:47 Benadryl IVPUSH Q4H PRN Itching Fentanyl Confirm 09/07/17 09:59 Sublimaze Administered 09/07/17 10:00 Dose 100 mcg .ROUTE .STK-MED ONE Gentamicin Sulfate Confirm 09/07/17 10:10 09/07/17 12:20 Gentamicin Administered 09/07/17 10:11 240 mg Dose Administration 240 mg .ROUTE .STK-MED ONE Hydrocortisone Sodium Succinate 100 mg 09/07/17 11:45 09/07/17 11:54 Solu-Cortef IVPUSH 09/07/17 11:46 100 mg ONETIME ONE Administration Hydromorphone HCl 0.5 mg 09/07/17 04:43 09/07/17 04:59 Dilaudid IVPUSH 09/07/17 04:44 0.5 mg ONETIME ONE Administration Hydromorphone HCl 1 mg 09/07/17 05:50 09/07/17 06:19 Dilaudid IVPUSH 09/07/17 05:51 1 mg ONETIME ONE Administration Hydromorphone HCl 1 mg 09/07/17 07:48 09/07/17 07:56 Dilaudid IVPUSH 09/07/17 07:49 1 mg ONETIME ONE Administration Hydromorphone HCl 0.5 mg 09/07/17 09:05 09/07/17 10:06 Dilaudid IVPUSH 0.5 mg Q1H PRN Administration PAIN Sodium Chloride 1,000 mls @ 250 mls/hr 09/07/17 04:45 09/07/17 04:58 Normal Saline IV 250 mls/hr ASDIRECTED NORM Administration Clindamycin Phosphate 600 mg/ 54 mls @ 100 mls/hr 09/07/17 08:00 09/07/17 07: 55 Sodium Chloride IV 09/07/17 08:32 100 mls/hr ONETIME ONE Administration Clindamycin Phosphate 600 mg/ 54 mls @ 100 mls/hr 09/07/17 12:00 09/07/17 12: 03 Sodium Chloride IV 09/07/17 12:32 100 mls/hr ONCALL ONE Administration Acetaminophen 1,000 mg/ Premix 100 mls @ 400 mls/hr 09/07/17 14:30 09/07/17 14:59 IV 09/07/17 14:44 400 mls/hr NOW ONE Administration Influenza Virus Vaccine 1 each 09/07/17 09:43 Pharmacy To Dose - Influenza Vaccine IM 09/07/17 09:44 ONETIME ONE Midazolam HCl Confirm 09/07/17 09:59 Versed 1 Mg/Ml Administered 09/07/17 10:00 Dose 2 mg .ROUTE .STK-MED ONE Midazolam HCl Confirm 09/07/17 12:32 Versed 1 Mg/Ml Administered 09/07/17 12:33 Dose 2 mg .ROUTE .STK-MED ONE Midazolam HCl Confirm 09/07/17 12:52 Versed 1 Mg/Ml Administered 09/07/17 12:53 Dose 2 mg .ROUTE .STK-MED ONE Morphine Sulfate 2 mg 09/07/17 13:47 Morphine IVPUSH Q2H PRN Pain Phenylephrine HCl Confirm 09/07/17 12:48 Chin-Synephrine Administered 09/07/17 12:49 Dose 10 mg .ROUTE .STK-MED ONE Povidone Iodine Confirm 09/07/17 10:11 09/07/17 13:06 Betadine 10% Soln Administered 09/07/17 10:12 30 ml Dose Administration 1 ml .ROUTE .STK-MED ONE Propofol Confirm 09/07/17 09:59 Diprivan 20 Ml Administered 09/07/17 10:00 Dose 200 mg .ROUTE .STK-MED ONE Propofol Confirm 09/07/17 13:04 Diprivan 20 Ml Administered 09/07/17 13:05 Dose 400 mg .ROUTE .STK-MED ONE - Re-Assessments/Exams Free Text/Narrative Re-Assessment/Exam: 09/07/17 08:02 Patient was initially seen and evaluated by Dr. Virgen. Patient has an obvious femoral neck fracture on the right side, CT pending. This confirmed a fracture. She was given an additional 1 mg of Dilaudid IV, and Dr. Enrrique Ghotra of the orthopedic service was consulted for admission. Departure - Departure Time of Disposition: 09:15 Disposition: Admitted As Inpatient 66 Condition: Fair Clinical Impression: Fracture of neck of femur, hip - Discharge Information - My Orders Last 24 Hours: My Active Orders 09/07/17 04:41 Sodium Chloride 0.9% [Saline Flush] 10 ml FLUSH ASDIRECTED PRN Saline Lock Insert [OM.PC] Routine 09/07/17 06:09 Pelvis wo Cont [CT] Stat 09/07/17 06:56 Urinary Catheter Assessment [RC] Q12H 09/07/17 07:00 Sherwood Catheter Insertion [Insert Urinary Catheter] [OM.PC] Q24H 09/07/17 Breakfast NPO [Nothing Per Oral Diet] [DIET] - Assessment/Plan Last 24 Hours: My Active Orders 09/07/17 04:41 Sodium Chloride 0.9% [Saline Flush] 10 ml FLUSH ASDIRECTED PRN Saline Lock Insert [OM.PC] Routine 09/07/17 06:09 Pelvis wo Cont [CT] Stat 09/07/17 06:56 Urinary Catheter Assessment [RC] Q12H 09/07/17 07:00 Sherwood Catheter Insertion [Insert Urinary Catheter] [OM.PC] Q24H 09/07/17 Breakfast NPO [Nothing Per Oral Diet] [DIET] <Veronica Virgen - Last Filed: 09/07/17 18:19> ED HPI GENERAL MEDICAL PROBLEM - General Source of Information: Reports: Patient History Limitations: Reports: No Limitations - History of Present Illness INITIAL COMMENTS - FREE TEXT/NARRATIVE: Pt was outside [place] [employer] and she was smoking. She fell and laid outside for at least 1/2hour. She was laying on the ground and was not able to get up. She was having alot of pain in th rt hip area. She hurt alot when the leg was moved. Onset: Today Duration: Hour(s): Location: Reports: Lower Extremity, Right Associated Symptoms: Reports: Other (pain in the rt hip area. 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: Musculoskeletal History: Reports: Osteoarthritis, Osteoporosis Neurological History: Reports: MS Psychiatric History: Reports: Addiction, Anxiety, Other (See Below) 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 Endocrine/Metabolic History: Reports: Diabetes, Gestational, Hypothyroidism, Vitamin D Deficiency, Other (See Below) Other Endocrine/Metabolic History: thyroid disease Hematologic History: Reports: Anemia, B12 Deficiency, Blood Transfusion(s) Immunologic History: Reports: SLE Dermatologic History: Reports: Psoriasis - Infectious Disease History Infectious Disease History: Reports: Chicken Pox, Measles - Past Surgical History HEENT Surgical History: Reports: Cataract Surgery GI Surgical History: Reports: Bariatric Procedure, Colonoscopy, Small Bowel Other GI Surgeries/Procedures: RNY 1989 Female Surgical History: Reports: Hysterectomy Musculoskeletal Surgical History: Reports: Shoulder Surgery, Other (See Below) Other Musculoskeletal Surgeries/Procedures:: pin in left hip after fx, plate in left arm, plate in left shoulder blade Social & Family History - Family History Family Medical History: Noncontributory - Tobacco Use Smoking Status *Q: Current Every Day Smoker Years of Tobacco use: 40 Packs/Tins Daily: 1 Used Tobacco, but Quit: No Month Tobacco Last Used: August Hand Smoke Exposure: No - Caffeine Use Caffeine Use: Reports: Soda - Alcohol Use Days Per Week of Alcohol Use: 0 - Recreational Drug Use Recreational Drug Use: No Review of Systems - Review of Systems Review Of Systems: See Below Constitutional: Reports: Other ( Pt is very chilled from lying out on the ground. ) Eyes: Reports: No Symptoms Ears: Reports: No Symptoms Nose: Reports: No Symptoms Mouth/Throat: Reports: No Symptoms Respiratory: Reports: No Symptoms Cardiovascular: Reports: No Symptoms GI/Abdominal: Reports: No Symptoms Genitourinary: Reports: No Symptoms Musculoskeletal: Reports: Other ( Pain in the rt hip area. ) Skin: Reports: No Symptoms ED EXAM, GENERAL - Physical Exam Exam: See Below Free Text/Narrative:: pt arrived after lying out on the ground for at least 1/2 hour and possibly longer. She has alot of pain in her rt hip area. Her temp was 95 on arrival. Exam Limited By: No Limitations General Appearance: Alert, Anxious, Moderate Distress, Other ( Pupils are equal and reactive. ) Ears: Normal TMs Nose: Normal Inspection Throat/Mouth: Normal Inspection Head: Atraumatic Neck: Normal Inspection Respiratory/Chest: No Respiratory Distress, Other ( distant brath sounds. ) Cardiovascular: Regular Rate, Rhythm GI/Abdominal: Soft, Non-Tender (Female) Exam: Deferred Rectal (Female) Exam: Deferred Back Exam: Normal Inspection Extremities: Other (pt has very severe pain in the rt hip. There is no pobvious deformity. Any movement of the leg is very uncomfortable. She states after she fell she waas not able to stand on the leg. ) Neurological: Alert, Oriented, Normal Cognition Psychiatric: Normal Affect Course - Vital Signs Last Recorded V/S: Last Vital Signs Temp 36.9 C 09/07/17 17:59 Pulse 89 09/07/17 17:59 Resp 16 09/07/17 17:59 BP 131/62 09/07/17 17:59 Pulse Ox 95 09/07/17 17:59 - Orders/Labs/Meds Labs: Laboratory Tests 09/07/17 09/07/17 09/07/17 Range/Units 04:59 04:59 04:59 WBC 10.4 (4.5-11.0) K/uL RBC 3.71 (3.30-5.50) M/uL Hgb 12.4 (12.0-15.0) g/dL Hct 38.7 (36.0-48.0) % MCV 104 H (80-98) fL MCH 33 H (27-31) pg MCHC 32 (32-36) % Plt Count 303 (150-400) K/uL Neut % (Auto) 53 (36-66) % Lymph % (Auto) 37 (24-44) % Cherry % (Auto) 7 H (2-6) % Eos % (Auto) 3 (2-4) % Baso % (Auto) 1 (0-1) % Sodium 132 L (140-148) mmol/L Potassium 4.2 (3.6-5.2) mmol/L Chloride 96 L (100-108) mmol/L Carbon Dioxide 27 (21-32) mmol/L Anion Gap 13.2 (5.0-14.0) mmol/L BUN 18 D (7-18) mg/dL Creatinine 0.9 (0.6-1.0) mg/dL Est Cr Clr Drug Dosing 52.64 mL/min Estimated GFR (MDRD) > 60 (>60) Glucose 126 H (74-106) mg/dL Calcium 8.6 (8.5-10.1) mg/dL Total Bilirubin 0.2 D (0.2-1.0) mg/dL AST 30 (15-37) U/L ALT 35 (12-78) U/L Alkaline Phosphatase 51 (46-116) U/L Creatine Kinase (26-192) U/L Total Protein 6.6 (6.4-8.2) g/dL Albumin 3.4 (3.4-5.0) g/dL Globulin 3.2 (2.3-3.5) g/dL Albumin/Globulin Ratio 1.1 L (1.2-2.2) Urine Color Urine Appearance Urine pH (4.5-8.0) Ur Specific [place] (1.008-1.030) Urine Protein (NEGATIVE) mg/dL Urine Glucose (UA) (NEGATIVE) mg/dL Urine Ketones (NEGATIVE) mg/dL Urine Occult Blood (NEGATIVE) Urine Nitrite (NEGATIVE) Urine Bilirubin (NEGATIVE) Urine Urobilinogen (NORMAL) mg/dL Ur Leukocyte Esterase (NEGATIVE) Urine RBC (0-5) Urine WBC (0-5) Ur Epithelial Cells Amorphous Sediment Urine Bacteria Urine Mucus Ethyl Alcohol < 3 mg/dL 09/07/17 09/07/17 Range/Units 05:31 07:19 WBC (4.5-11.0) K/uL RBC (3.30-5.50) M/uL Hgb (12.0-15.0) g/dL Hct (36.0-48.0) % MCV (80-98) fL MCH (27-31) pg MCHC (32-36) % Plt Count (150-400) K/uL Neut % (Auto) (36-66) % Lymph % (Auto) (24-44) % Cherry % (Auto) (2-6) % Eos % (Auto) (2-4) % Baso % (Auto) (0-1) % Sodium (140-148) mmol/L Potassium (3.6-5.2) mmol/L Chloride (100-108) mmol/L Carbon Dioxide (21-32) mmol/L Anion Gap (5.0-14.0) mmol/L BUN (7-18) mg/dL Creatinine (0.6-1.0) mg/dL Est Cr Clr Drug Dosing mL/min Estimated GFR (MDRD) (>60) Glucose (74-106) mg/dL Calcium (8.5-10.1) mg/dL Total Bilirubin (0.2-1.0) mg/dL AST (15-37) U/L ALT (12-78) U/L Alkaline Phosphatase (46-116) U/L Creatine Kinase 95 (26-192) U/L Total Protein (6.4-8.2) g/dL Albumin (3.4-5.0) g/dL Globulin (2.3-3.5) g/dL Albumin/Globulin Ratio (1.2-2.2) Urine Color Yellow Urine Appearance Clear Urine pH 5.0 (4.5-8.0) Ur Specific [place] 1.020 (1.008-1.030) Urine Protein Negative (NEGATIVE) mg/dL Urine Glucose (UA) Normal (NEGATIVE) mg/dL Urine Ketones Negative (NEGATIVE) mg/dL Urine Occult Blood Negative (NEGATIVE) Urine Nitrite Negative (NEGATIVE) Urine Bilirubin Negative (NEGATIVE) Urine Urobilinogen Normal (NORMAL) mg/dL Ur Leukocyte Esterase Negative (NEGATIVE) Urine RBC Not seen (0-5) Urine WBC Not seen (0-5) Ur Epithelial Cells Rare Amorphous Sediment Not seen Urine Bacteria Not seen Urine Mucus Few Ethyl Alcohol mg/dL
[2017-09-07] MEDS ORDERED: HYDROmorphone 1 MG/ML Syringe IVPUSH ONE ×2 (05:50→07:48)
--- NOTE | 2017-09-07 08:30 | CR ---
Hip Min 2V or 3V Rt HISTORY: pain in rt hip FINDINGS: There is an acute fracture neck of the proximal right femur with varus deformity. No disloc ation is seen. No other fracture is identified. Bony structures are osteopenic. IMPRESSION: Acute fracture neck of the proximal right femur with varus deformity.
--- NOTE | 2017-09-07 08:40 | CR ---
Chest 1V Frontal HISTORY: nor COMPARISON: None FINDINGS: Lungs appear clear and normally aerated. Cardiomediastinal silhouette is within normal limits. Athero sclerotic calcification is seen in the aortic arch. No vascular redistribution or pleural fluid can b e seen. Bony structures and soft tissues are unremarkable. IMPRESSION: No acute chest abnormality identified. Atherosclerotic aorta is noted.
[2017-09-07] MEDS: HYDROmorphone 0.5 MG/0.5 ML Syringe IVPUSH PRN ×7 (09:14→22:53)
--- NOTE | 2017-09-07 09:17 | PCM.CONS ---
H&P History of Present Illness - General Admit Problem/Dx: Admission Diagnosis/Problem Admission Diagnosis/Problem Hip fracture requiring operative repair Source of Information: Patient, Family History Limitations: Reports: No Limitations - History of Present Illness Onset of Symptoms: Reports: Today, Sudden Duration of Symptoms: Reports: Hour(s): Location: Reports: Lower Extremity, Right Quality: Reports: Ache, Burning, Pressure, Throbbing Severity: Severe Improves with: Reports: None Worsens with: Reports: Movement Associated Symptoms: Reports: No Other Symptoms right hip Pain Score (Numeric/FACES): 10 - Related Data Allergies/Adverse Reactions: Allergies Allergy/AdvReac Type Severity Reaction Status Date / Time morphine Allergy Unknown Hives Verified 09/07/17 17:29 Penicillins Allergy Unknown Hives Verified 09/07/17 09:54 ranitidine HCl [From Zantac] Allergy Unknown Swelling Verified 09/07/17 09:54 diphenhydramine Allergy Other Verified 09/07/17 09:54 [From Benadryl] latex Allergy Cannot Verified 09/07/17 09:54 Remember Home Medications: Home Meds Carisoprodol [Soma] 350 mg PO QID PRN 01/01/15 [History] predniSONE [Prednisone] 10 mg PO DAILY 01/01/15 [History] Estradiol 1.5 mg PO DAILY 01/03/15 [History] Levothyroxine [Synthroid] 100 mcg PO DAILY 01/03/15 [History] Amitriptyline [Elavil] 75 mg PO BEDTIME 08/07/15 [History] Zolpidem Tartrate 10 mg PO BEDTIME 08/09/15 [History] Pumpkin Seed Extract/Soy Germ [Azo Bladder Control Capsule] 300 mg PO DAILY [History] Hydrocodone/Acetaminophen [Hydrocodon-Acetaminoph 7.5-325] 2 tab PO Q4H PRN 12/23 [History] Multivitamin W/Iron, Minerals [Flintstones Complete] 1 each PO DAILY 09/28/16 [ History] Calcium Citrate/Vitamin D3 [Calcium Citrate + D] 1 tab PO BID 08/05/17 [History] Cholecalciferol (Vitamin D3) [Vitamin D] 5,000 units PO DAILY 08/05/17 [History] Cyanocobalamin (Vitamin B-12) [Vitamin B-12] 1,000 mcg SL DAILY 08/05/17 [ History] Loratadine 10 mg PO DAILY 08/05/17 [History] Ondansetron [Zofran ODT] 4 mg PO Q4H PRN 08/05/17 [History] Vitamin B Complex [B Complex] 1 tab PO DAILY 08/05/17 [History] Famotidine [Pepcid] 40 mg PO BID 08/06/17 [History] Escitalopram [Lexapro] 10 mg PO DAILY 09/07/17 [History] Past Medical History HEENT History: Reports: Cataract, Impaired Vision Respiratory History: Reports: Bronchitis, Recurrent Gastrointestinal History: Reports: Bowel Obstruction, GERD, Pancreatitis Other Gastrointestinal History: "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" Genitourinary History: Reports: Retention, Urinary, Urinary Incontinence Other Genitourinary History: urethral stricture - cystoscopy - which was several years ago 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: Musculoskeletal History: Reports: Osteoarthritis, Osteoporosis Neurological History: Reports: MS Psychiatric History: Reports: Addiction, Anxiety, Other (See Below) 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 Endocrine/Metabolic History: Reports: Diabetes, Gestational, Hypothyroidism, Vitamin D Deficiency, Other (See Below) Other Endocrine/Metabolic History: thyroid disease Hematologic History: Reports: Anemia, B12 Deficiency, Blood Transfusion(s) Immunologic History: Reports: SLE Dermatologic History: Reports: Psoriasis - Infectious Disease History Infectious Disease History: Reports: Chicken Pox, Measles - Past Surgical History HEENT Surgical History: Reports: Cataract Surgery GI Surgical History: Reports: Bariatric Procedure, Colonoscopy, Small Bowel Other GI Surgeries/Procedures: RNY 1988 Female Surgical History: Reports: Hysterectomy Musculoskeletal Surgical History: Reports: Shoulder Surgery, Other (See Below) Other Musculoskeletal Surgeries/Procedures:: pin in left hip after fx, plate in left arm, plate in left shoulder blade Social & Family History - Family History Family Medical History: Noncontributory - Tobacco Use Smoking Status *Q: Current Every Day Smoker Years of Tobacco use: 40 Packs/Tins Daily: 1 Used Tobacco, but Quit: No Month Tobacco Last Used: August Second Hand Smoke Exposure: No - Caffeine Use Caffeine Use: Reports: Soda - Alcohol Use Days Per Week of Alcohol Use: 0 - Recreational Drug Use Recreational Drug Use: No H&P Review of Systems - Review of Systems: Review Of Systems: See Below General: Reports: No Symptoms HEENT: Reports: No Symptoms Pulmonary: Reports: No Symptoms Cardiovascular: Reports: No Symptoms Gastrointestinal: Reports: No Symptoms Genitourinary: Reports: No Symptoms Musculoskeletal: Reports: Leg Pain, Joint Swelling, Muscle Pain, Muscle Stiffness Skin: Reports: No Symptoms Psychiatric: Reports: No Symptoms Neurological: Reports: No Symptoms Hematologic/Lymphatic: Reports: No Symptoms Immunologic: Reports: No Symptoms Exam - Exam Exam: See Below - Vital Signs Vital Signs: Last Vital Signs Temp 96.1 F 09/07/17 07:02 Pulse 80 09/07/17 08:05 Resp 16 09/07/17 08:05 BP 114/57 L 09/07/17 08:05 Pulse Ox 97 09/07/17 08:05 Weight: 112 lb - Exam General: Alert, Oriented, 4 HEENT: PERRLA, Conjunctiva Clear, Hearing Intact, Mucosa Moist & [place], Pupils Equal, Pupils Reactive Neck: Supple, Trachea Midline Lungs: Normal Respiratory Effort Extremities: Joint Swelling, Leg Pain Peripheral Pulses: 2+: Dorsalis Pedis (R) Skin: Warm, Dry, Intact Neurological: Cranial Nerves Intact Neuro Extensive - Mental Status: Alert, Oriented x3, Normal Mood/Affect, Normal Cognition, Memory Intact Psychiatric: Alert, Normal Affect, Normal Mood Physical Exam Comments:: rle shortened. motor and sensory exam grossly intact. - Patient Data Result Diagrams: 09/08/17 05:45 09/08/17 05:45 Consult PN Assessment/Plan Procedures: Procedures ASSAY OF AMMONIA (10/12/15) ASSAY OF LACTIC ACID (10/09/15) ASSAY OF LIPASE (10/09/15) ASSAY OF TROPONIN QUANT (07/11/15) ASSAY THYROID STIM HORMONE (04/24/17) CHEST X-RAY 1 VIEW FRONTAL (04/23/17) COMPLETE CBC AUTOMATED (09/30/15) COMPLETE CBC W/AUTO DIFF WBC (04/24/17) COMPREHEN METABOLIC PANEL (04/24/17) CT ABD & PELV W/CONTRAST (10/09/15) CT HEAD/BRAIN W/O DYE (04/23/17) CT LOWER EXTREMITY W/O DYE (09/27/16) CT THORAX W/O DYE (01/01/15) CT UPPER EXTREMITY W/O DYE (11/19/16) CULTURE SCREEN ONLY (08/06/17) DRAIN/INJ JOINT/BURSA W/O US (05/27/17) DRUG TEST PRSMV DIR OPT OBS (04/24/17) EGD BIOPSY SINGLE/MULTIPLE (08/06/17) ELECTROCARDIOGRAM REPORT (07/11/15) ELECTROCARDIOGRAM TRACING (10/12/15) EMERGENCY DEPT VISIT (06/16/17) EMERGENCY DEPT VISIT (04/23/17) EMERGENCY DEPT VISIT (09/27/16) EMERGENCY DEPT VISIT (10/12/15) EMERGENCY DEPT VISIT (07/11/15) EMERGENCY DEPT VISIT (01/01/15) HYDRATE IV INFUSION ADD-ON (04/23/17) HYDRATION IV INFUSION INIT (04/23/17) IIV4 VACC NO PRSV 0.5 ML IM (08/09/15) INJECT TRIGGER POINTS 3/> (05/26/17) MEASURE BLOOD OXYGEN LEVEL (09/30/15) METABOLIC PANEL TOTAL CA (04/23/17) OFFICE/OUTPATIENT VISIT EST (05/27/17) OFFICE/OUTPATIENT VISIT NEW (09/29/16) PARTIAL REMOVAL OF COLON (01/01/15) POSTOP FOLLOW-UP VISIT (11/16/16) ROUTINE VENIPUNCTURE (04/24/17) SUSPEND BOWEL W/PROSTHESIS (01/01/15) THER/PROPH/DIAG INJ IV PUSH (06/16/17) THER/PROPH/DIAG INJ SC/IM (04/23/17) TISSUE EXAM BY PATHOLOGIST (09/30/15) TISSUE EXAM BY PATHOLOGIST (01/01/15) TREAT KNEE FRACTURE (09/29/16) TX/PRO/DX INJ NEW DRUG ADDON (01/01/15) TX/PRO/DX INJ SAME DRUG HOSTING ENGINEER (01/01/15) URINALYSIS AUTO W/SCOPE (04/24/17) URINE CULTURE/COLONY COUNT (07/11/15) US URINE CAPACITY MEASURE (08/09/15) X-RAY EXAM HIP UNI 2-3 VIEWS (02/22/17) X-RAY EXAM KNEE 4 OR MORE (04/07/17) X-RAY EXAM OF COLLAR BONE (10/19/16) X-RAY EXAM OF KNEE 1 OR 2 (11/16/16) X-RAY EXAM OF KNEE 3 (04/26/16) X-RAY EXAM OF LOWER LEG (09/27/16) X-RAY EXAM OF SHOULDER (10/19/16) X-RAY EXAM OF WRIST (03/01/17) (1) Fracture of neck of femur, hip SNOMED Code(s): 3636975 Code(s): S72.009A - FRACTURE OF UNSP PART OF NECK OF UNSP FEMUR, INIT Current Visit: Yes Problem List Initiated/Reviewed/Updated: Yes Plan: to OR today at noon for right hip hemiarthroplasty risk and benefits explained to patient and informed consent obtained plan for ECF stay after hospital stay consult to hospitalist Requesting Provider: ajc pimentel Date Consult Requested: 09/07/17 Patient History Reviewed: Yes Admission H&P Reviewed: Yes Notified Requestor: Yes
[2017-09-07] MEDS: Sodium Chloride 0.9% 1,000 ML IV SCH ×2 (09:20→18:03)
[2017-09-07] MEDS ORDERED: Midazolam 1 MG/ML 2 ML SDV ONE ×3 (09:59→12:52)
[2017-09-07] MEDS ORDERED: fentaNYL 100 MCG/2 ML SDV ONE (09:59)
[2017-09-07] MEDS ORDERED: Propofol 200 MG/20 ML SDV ONE ×2 (09:59→13:04)
[2017-09-07] MEDS ORDERED: Gentamicin 40 MG/ML 2 ML Vial ONE (10:10)
[2017-09-07] MEDS ORDERED: Bupivacaine 0.5%/EPINEPHrine 1:200,000 50 ML MDV ONE (10:11)
[2017-09-07] MEDS ORDERED: Povidone-Iodine 10% Soln 118.25 ML Bottle ONE (10:11)
--- NOTE | 2017-09-07 11:30 | PCM.HP ---
H&P History of Present Illness - General Date of Service: 09/07/17 Admit Problem/Dx: Source of Information: Patient, Provider, RN Notes Reviewed History Limitations: Reports: No Limitations - History of Present Illness Initial Comments - Free Text/Narative: This patient is a 61-year-old woman who unfortunately fell this morning and experienced a right hip fracture. She is been seen and evaluated by Dr. Robby Ghotra in the emergency department, current plan is for surgery for repair of the fracture later this morning. She has no history of significant cardiac disease or cerebral vascular disease. There is a history of some chronic bronchitis but she denies symptoms of significant shortness of breath, cough, recent fever or chills. She also denies any symptoms of chest pain or pressure in the orthopnea or peripheral edema syncope or palpitations. She has had previous surgery with general anesthesia with no untoward complications and there is no family history of adverse reaction to anesthesia. She denies a history of deep vein thrombosis, pulmonary embolism, or bleeding abnormality. right hip Pain Score (Numeric/FACES): 8 - Related Data Allergies/Adverse Reactions: Allergies Allergy/AdvReac Type Severity Reaction Status Date / Time morphine Allergy Unknown Hives Verified 09/07/17 09:54 Penicillins Allergy Unknown Hives Verified 09/07/17 09:54 ranitidine HCl [From Zantac] Allergy Unknown Swelling Verified 09/07/17 09:54 diphenhydramine Allergy Other Verified 09/07/17 09:54 [From Benadryl] latex Allergy Cannot Verified 09/07/17 09:54 Remember oxycodone Allergy Rash Verified 09/07/17 09:54 Home Medications: Home Meds Carisoprodol [Soma] 350 mg PO QID PRN 01/01/15 [History] predniSONE [Prednisone] 10 mg PO DAILY 01/01/15 [History] Estradiol 1.5 mg PO DAILY 01/03/15 [History] Levothyroxine [Synthroid] 100 mcg PO DAILY 01/03/15 [History] Amitriptyline [Elavil] 75 mg PO BEDTIME 08/07/15 [History] Zolpidem Tartrate 10 mg PO BEDTIME 08/09/15 [History] Pumpkin Seed Extract/Soy Germ [Azo Bladder Control Capsule] 300 mg PO DAILY [History] Hydrocodone/Acetaminophen [Hydrocodon-Acetaminoph 7.5-325] 2 tab PO Q4H PRN 12/23 [History] Multivitamin W/Iron, Minerals [Flintstones Complete] 1 each PO DAILY 09/28/16 [ History] Calcium Citrate/Vitamin D3 [Calcium Citrate + D] 1 tab PO BID 08/05/17 [History] Cholecalciferol (Vitamin D3) [Vitamin D] 5,000 units PO DAILY 08/05/17 [History] Cyanocobalamin (Vitamin B-12) [Vitamin B-12] 1,000 mcg SL DAILY 08/05/17 [ History] Loratadine 10 mg PO DAILY 08/05/17 [History] Ondansetron [Zofran ODT] 4 mg PO Q4H PRN 08/05/17 [History] Vitamin B Complex [B Complex] 1 tab PO DAILY 08/05/17 [History] Famotidine [Pepcid] 40 mg PO BID 08/06/17 [History] Escitalopram [Lexapro] 10 mg PO DAILY 09/07/17 [History] Past Medical History HEENT History: Reports: Cataract, Impaired Vision Respiratory History: Reports: Bronchitis, Recurrent Gastrointestinal History: Reports: Bowel Obstruction, GERD, Pancreatitis Other Gastrointestinal History: "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" Genitourinary History: Reports: Retention, Urinary, Urinary Incontinence Other Genitourinary History: urethral stricture - cystoscopy - which was several years ago 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: Musculoskeletal History: Reports: Osteoarthritis, Osteoporosis Neurological History: Reports: MS Psychiatric History: Reports: Addiction, Anxiety, Other (See Below) 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 Endocrine/Metabolic History: Reports: Diabetes, Gestational, Hypothyroidism, Vitamin D Deficiency, Other (See Below) Other Endocrine/Metabolic History: thyroid disease Hematologic History: Reports: Anemia, B12 Deficiency, Blood Transfusion(s) Immunologic History: Reports: SLE Dermatologic History: Reports: Psoriasis - Infectious Disease History Infectious Disease History: Reports: Chicken Pox, Measles - Past Surgical History HEENT Surgical History: Reports: Cataract Surgery GI Surgical History: Reports: Bariatric Procedure, Colonoscopy, Small Bowel Other GI Surgeries/Procedures: RNY 1988 Female Surgical History: Reports: Hysterectomy Endocrine Surgical History: Reports: None Neurological Surgical History: Reports: None Musculoskeletal Surgical History: Reports: Shoulder Surgery, Other (See Below) Other Musculoskeletal Surgeries/Procedures:: pin in left hip after fx, plate in left arm, plate in left shoulder blade Social & Family History - Family History Family Medical History: Noncontributory - Tobacco Use Smoking Status *Q: Current Every Day Smoker Years of Tobacco use: 40 Packs/Tins Daily: 1 Used Tobacco, but Quit: No Month Tobacco Last Used: August Second Hand Smoke Exposure: No - Caffeine Use Caffeine Use: Reports: Soda - Alcohol Use Days Per Week of Alcohol Use: 0 - Recreational Drug Use Recreational Drug Use: No H&P Review of Systems - Review of Systems: Review Of Systems: See Below General: Denies: Fever, Chills, Weakness HEENT: Reports: No Symptoms Pulmonary: Reports: No Symptoms Cardiovascular: Reports: No Symptoms Gastrointestinal: Reports: No Symptoms Genitourinary: Reports: Retention. Denies: Dysuria, Frequency, Burning, Urgency , Incontinence, Hematuria Musculoskeletal: Reports: Leg Pain, Joint Pain Skin: Reports: No Symptoms Psychiatric: Reports: No Symptoms Neurological: Reports: No Symptoms Hematologic/Lymphatic: Reports: No Symptoms Immunologic: Reports: No Symptoms Exam - Exam Exam: See Below - Vital Signs Vital Signs: Last Vital Signs Temp 96.1 F 09/07/17 07:02 Pulse 72 09/07/17 09:40 Resp 16 09/07/17 09:40 BP 131/58 L 09/07/17 09:40 Pulse Ox 94 L 09/07/17 09:40 Weight: 111 lb 15.988 oz - Exam Quality Assessment: Urinary Catheter, DVT Prophylaxis General: Alert, Oriented, Cooperative, Severe Distress HEENT: Conjunctiva Clear, Hearing Intact, Mucosa Moist & [place], Normal Nasal Septum, Posterior Pharynx Clear, Pupils Equal Neck: Supple, Trachea Midline, +2 Carotid Pulse wo Bruit Lungs: Clear to Auscultation, Normal Respiratory Effort Cardiovascular: Regular Rate, Regular Rhythm, Normal S1, Normal S2 GI/Abdominal Exam: Normal Bowel Sounds, Soft, Non-Tender, No Organomegaly, No Distention Extremities: No Pedal Edema Skin: Warm, Dry, Intact Neurological: Cranial Nerves Intact, Strength Equal Bilateral, Normal Speech, Normal Tone, Sensation Intact. No: Focal Deficit Neuro Extensive - Mental Status: Alert, Oriented x3, Normal Mood/Affect, Normal Cognition, Memory Intact - Patient Data Result Diagrams: 09/07/17 04:59 09/07/17 04:59 *Q Meaningful Use (ADM) - VTE *Q VTE Criteria *Q: - VTE Risk Assess *Q Each Risk Factor Represents 1 Point: None Total Score 1 Point Risk Factors: 0 Each Risk Factor Represents 2 Points: Age 60 - 74 Years, Major surgery greater than 45 minutes Total Score 2 Point Risk Factors: 4 Each Risk Factor Represents 3 Points: None Total Score 3 Point Risk Factors: 0 Each Risk Factor Represents 5 Points: Hip, Pelvis or Leg Fracture, Less than 1 month Total Score 5 Point Risk Factors: 5 Venous Thromboembolism Risk Factor Score *Q: 9 - Stroke *Q Stroke Criteria *Q: - AMI *Q AMI Criteria *Q: Problem List Initiated/Reviewed/Updated: Yes Orders Last 24hrs: Active Orders 24 hr Category Date Time Status Admission Diagnosis [ADT] Routine ADT 09/07/17 08:23 Ordered Admission Status [Patient Status] [ADT] Routine ADT 09/07/17 08:23 Active Bedrest [RC] ASDIRECTED Care 09/07/17 09:25 Active Neurovascular Check [RC] Q1HR Care 09/07/17 09:25 Active Vital Signs [RC] Q1H Care 09/07/17 09:25 Active Clindamycin Phosphate [Cleocin] 600 mg Med 09/07/17 12:00 Active Sodium Chloride 0.9% [Normal Saline] 50 ml IV ONCALL FLU Vacc [id number] 36Mos UP/PF [Fluzone Quad [id number]] Med 09/08/17 10:00 Once 60 mcg IM .ONCE ONE HYDROmorphone [Dilaudid] Med 09/07/17 10:48 Active 0.5 - 1 mg IVPUSH Q1H PRN Pneumococcal Polyvalent-23 Vac [Pneumovax 23] Med 09/08/17 10:00 Once 0.5 ml IM .ONCE ONE Sodium Chloride 0.9% [Normal Saline] 1,000 ml Med 09/07/17 09:15 Active IV ASDIRECTED Medication Orders Hydromorphone HCl (Dilaudid) 0.5 - 1 mg IVPUSH Q1H PRN PRN Reason: Pain Last Admin: 09/07/17 11:17 Dose: 1 mg Sodium Chloride (Normal Saline) 1,000 mls @ 150 mls/hr IV ASDIRECTED NORM Last Admin: 09/07/17 09:20 Dose: 150 mls/hr Clindamycin Phosphate 600 mg/ (Sodium Chloride) 54 mls @ 100 mls/hr IV ONCALL ONE Stop: 09/07/17 12:32 Influenza Virus Vaccine (Fluzone Quad [id number]) 60 mcg IM .ONCE ONE Stop: 09/08/17 10:01 Pneumococcal Polyvalent Vaccine (Pneumovax 23) 0.5 ml IM .ONCE ONE Stop: 09/08/17 10:01 Sodium Chloride (Saline Flush) 10 ml FLUSH ASDIRECTED PRN PRN Reason: Keep Vein Open Last Admin: 09/07/17 05:01 Dose: 10 ml Assessment/Plan Comment:: ASSESSMENT AND PLAN RIGHT HIP FRACTURE-seen and evaluated by Dr. Luis E Ghotra in the emergency department, to undergo surgery yet today. Cleared for surgery with anesthesia, low risk. -Postoperative care and management per Dr. Ghotra IATROGENIC ADRENAL INSUFFICIENCY-chronic prednisone use -Hydrocortisone 100 mg IV on-call to OR OSTEOPOROSIS -Continue outpatient calcium supplement and vitamin D -Consider more aggressive management MAINTENANCE ISSUES -DVT prophylaxis; SCUDs -GI prophylaxis; not indicated -[place] catheter; short-term placement for management after surgery -Nutrition; nothing by mouth until after surgery -Nicotine dependence; CODE STATUS-FULL CODE ADMISSION STATUS-patient will be admitted to inpatient status, expect at least a 2 night hospital stay for evaluation and management of problems as outlined above. At the time of this admission I do not reasonably expected evaluation and management of this problem will require more than a 96 hour hospital stay. DISPOSITION-anticipate discharge to home after the hospital stay. PRIMARY CARE PROVIDER-
[2017-09-07] MEDS ORDERED: Hydrocortisone Sodium Succinate 100 MG/2 ML SDV IVPUSH ONE (11:45)
[2017-09-07] MEDS ORDERED: Ketorolac 30 MG/ML SDV IVPUSH ONE (12:27)
[2017-09-07] MEDS ORDERED: Phenylephrine 1% 10 MG/ML SDV ONE (12:48)
[2017-09-07] MEDS ORDERED: Aluminum Hydroxide/Magnesium Hydroxide/Simethicone Susp 30 ML Cup PO PRN (13:47)
[2017-09-07] MEDS ORDERED: Sennosides 8.6 MG Tab PO PRN (13:47)
[2017-09-07] MEDS ORDERED: Naloxone 0.4 MG/ML SDV IVPUSH PRN (13:47)
[2017-09-07] MEDS ORDERED: diphenhydrAMINE 50 MG/ML SDV IVPUSH PRN (13:47)
[2017-09-07] MEDS ORDERED: oxyCODONE 5 MG Tab PO PRN (13:47)
[2017-09-07] MEDS ORDERED: Morphine 2 MG/ML Syringe IVPUSH PRN (13:47)
[2017-09-07] MEDS ORDERED: Magnesium Hydroxide 400 MG/5 ML Susp 30 ML Cup PO PRN (13:47)
[2017-09-07] MEDS ORDERED: Bisacodyl 5 MG Tab PO PRN (13:47)
[2017-09-07] MEDS ORDERED: Ondansetron 4 MG/2 ML SDV IVPUSH PRN (13:47)
[2017-09-07] MEDS ORDERED: Acetaminophen 1,000 MG in Premix Bag 1 BAG IV ONE (14:30)
--- NOTE | 2017-09-07 14:36 | CR ---
Hip Min 1V Rt HISTORY: X-RAY RIGHT HIP IN PAR FINDINGS: Postoperative position and alignment right total hip arthroplasty appear satisfactory. No complicatio n can be seen. Air in the soft tissues and joint is consistent with the postoperative state. IMPRESSION: Satisfactory postoperative position and alignment right total hip arthroplasty. No complication is id entified.
[2017-09-07] MEDS: Diazepam 5 MG Tab PO PRN (16:46)
[2017-09-07] MEDS: traMADol 50 MG Tab PO PRN (16:46)
[2017-09-07] MEDS: Acetaminophen/HYDROcodone 325-5 MG Tab PO PRN ×2 (18:45→22:49)
[2017-09-07] MEDS: Calcium Carbonate/Vitamin D3 1500 MG-400 Units Tab PO SCH (20:50)
[2017-09-07] MEDS: Docusate Sodium 100 MG Cap PO SCH (20:50)
[2017-09-07] MEDS: Amitriptyline 25 MG Tab PO SCH (20:50)
[2017-09-07] MEDS: Famotidine 20 MG Tab PO SCH (20:51)
[2017-09-07] MEDS ORDERED: [UNRECOGNIZED DRUG - OTHER] PO SCH (21:00)
[2017-09-07] MEDS ORDERED: Non-Formulary Medication 1 Each (Famotidine [Pepcid] 40 MG) PO SCH (21:00)
[2017-09-07] MEDS ORDERED: CALCIUM CITRATE PO SCH (21:00)
[2017-09-07] MEDS ORDERED: VITAMIN D3 PO SCH (21:00)
[2017-09-07] MEDS: Zolpidem 5 MG Tab PO PRN (23:18)
[2017-09-08] MEDS: HYDROmorphone 0.5 MG/0.5 ML Syringe IVPUSH PRN ×6 (00:18→08:46)
[2017-09-08] MEDS: traMADol 50 MG Tab PO PRN (01:08)
[2017-09-08] MEDS: Diazepam 5 MG Tab PO PRN ×2 (01:08→07:34)
[2017-09-08] MEDS: Acetaminophen/HYDROcodone 325-5 MG Tab PO PRN ×2 (02:55→07:27)
[2017-09-08] MEDS: Sodium Chloride 0.9% 1,000 ML IV SCH (05:01)
[2017-09-08] MEDS: Levothyroxine 100 MCG Tab PO SCH (07:45)
[2017-09-08] MEDS: Calcium Carbonate/Vitamin D3 1500 MG-400 Units Tab PO SCH ×2 (08:32→20:58)
[2017-09-08] MEDS: Loratadine 10 MG Tab PO SCH (08:32)
[2017-09-08] MEDS: Famotidine 20 MG Tab PO SCH ×2 (08:33→20:58)
[2017-09-08] MEDS: predniSONE 10 MG Tab PO SCH (08:33)
[2017-09-08] MEDS: Cyanocobalamin (Vitamin B12) 1,000 MCG Tab SL SCH (08:33)
[2017-09-08] MEDS: Aspirin 325 MG Tab.EC PO SCH (08:33)
[2017-09-08] MEDS: Docusate Sodium 100 MG Cap PO SCH ×2 (08:33→20:58)
[2017-09-08] MEDS: Escitalopram 10 MG Tab PO SCH (08:33)
[2017-09-08] MEDS: Cholecalciferol (Vitamin D3) 1,000 Unit Tab PO SCH (08:34)
[2017-09-08] MEDS ORDERED: Non-Formulary Medication 1 Each (Cyanocobalamin (Vitamin B-12) [Vitamin B-12] 1,000 MCG) SL SCH (09:00)
[2017-09-08] MEDS ORDERED: CHOLECALCIFEROL 5000 UNIT PO SCH (09:00)
[2017-09-08] MEDS ORDERED: Sodium Chloride 0.9% 10 ML Syringe FLUSH SCH (09:00)
--- NOTE | 2017-09-08 09:47 | PCM.PN ---
- General Info Date of Service: 09/08/17 Admission Dx/Problem (Free Text): Patient is doing well. She has some concerns regarding her pain medication but states that her pain is better today than yesterday. She states that she is more stiff today. She is eating without any difficulties. She is working with PT /OT for strengthening. Functional Status: Reports: Pain Controlled, Tolerating Diet, Urinating - Review of Systems General: Reports: No Symptoms Musculoskeletal: Reports: Leg Pain Skin: Reports: No Symptoms - Patient Data Vitals - Most Recent: Last Vital Signs Temp 36.8 C 09/08/17 07:05 Pulse 81 09/08/17 07:05 Resp 12 09/08/17 07:05 BP 132/54 L 09/08/17 07:05 Pulse Ox 91 L 09/08/17 07:30 Weight - Most Recent: 112 lb I&O - Last 24 Hours: Intake & Output 09/07/17 09/08/17 09/08/17 22:59 06:59 14:59 Intake Total 1810 1818 Output Total 1000 2300 Balance 810 -482 Lab Results Last 24 Hours: Laboratory Results - last 24 hr 09/08/17 09/08/17 Range/Units 05:45 05:45 WBC 8.6 (4.5-11.0) K/uL RBC 3.14 L (3.30-5.50) M/uL Hgb 10.6 L (12.0-15.0) g/dL Hct 33.1 L (36.0-48.0) % MCV 105 H (80-98) fL MCH 34 H (27-31) pg MCHC 32 (32-36) % Plt Count 249 (150-400) K/uL Neut % (Auto) 67 H (36-66) % Lymph % (Auto) 24 (24-44) % [place] % (Auto) 6 (2-6) % Eos % (Auto) 3 (2-4) % Baso % (Auto) 1 (0-1) % Sodium 138 L (140-148) mmol/L Potassium 3.9 (3.6-5.2) mmol/L Chloride 106 (100-108) mmol/L Carbon Dioxide 25 (21-32) mmol/L Anion Gap 10.9 (5.0-14.0) mmol/L BUN 11 (7-18) mg/dL Creatinine 0.7 (0.6-1.0) mg/dL Est Cr Clr Drug Dosing 67.69 mL/min Estimated GFR (MDRD) > 60 (>60) Glucose 94 (74-106) mg/dL Calcium 8.0 L (8.5-10.1) mg/dL Total Bilirubin 0.2 (0.2-1.0) mg/dL AST 48 H (15-37) U/L ALT 47 (12-78) U/L Alkaline Phosphatase 65 (46-116) U/L Total Protein 5.3 L (6.4-8.2) g/dL Albumin 2.6 L (3.4-5.0) g/dL Globulin 2.7 (2.3-3.5) g/dL Albumin/Globulin Ratio 1.0 L (1.2-2.2) Med Orders - Current: Current Medications Al Hydroxide/Mg Hydroxide (Mag-Al Plus) 30 ml PO Q4H PRN PRN Reason: Constipation Amitriptyline HCl (Elavil) 75 mg PO BEDTIME [facility] Last Admin: 09/07/17 20:50 Dose: 75 mg Aspirin (Ecotrin) 325 mg PO DAILY [facility] Last Admin: 09/08/17 08:33 Dose: 325 mg Bisacodyl (Dulcolax) 10 mg PO DAILY PRN PRN Reason: Constipation Calcium Carbonate (Caltrate 600+D 1500 Mg-400 Units) 1 tab PO BID [facility] Last Admin: 09/08/17 08:32 Dose: 1 tab Carisoprodol (Soma) 350 mg PO QID PRN PRN Reason: Muscle Spasm Last Admin: 09/08/17 08:46 Dose: 350 mg Cholecalciferol (Vitamin D3) 5,000 units PO DAILY [facility] Last Admin: 09/08/17 08:34 Dose: 5,000 units Cyanocobalamin (Vitamin B12) 1,000 mcg SL DAILY [facility] Last Admin: 09/08/17 08:33 Dose: 1,000 mcg Docusate Sodium (Colace) 100 mg PO BID [facility] Last Admin: 09/08/17 08:33 Dose: 100 mg Escitalopram Oxalate (Lexapro) 10 mg PO DAILY [facility] Last Admin: 09/08/17 08:33 Dose: 10 mg Famotidine (Pepcid) 40 mg PO BID [facility] Last Admin: 09/08/17 08:33 Dose: 40 mg Gabapentin (Neurontin) 400 mg PO TID [facility] Stop: 09/12/17 09:01 Hydromorphone HCl (Dilaudid) 0.5 - 1 mg IVPUSH Q1H PRN PRN Reason: Pain Last Admin: 09/08/17 08:46 Dose: 1 mg Hydroxyzine HCl (Vistaril) 100 mg IM Q4H PRN PRN Reason: Pain Sodium Chloride (Normal Saline) 1,000 mls @ 150 mls/hr IV ASDIRECTED [facility] Last Admin: 09/08/17 05:01 Dose: 150 mls/hr Influenza Virus Vaccine (Fluzone Quad [id number]) 60 mcg IM .ONCE ONE Stop: 09/08/17 10:01 Levothyroxine Sodium (Synthroid) 100 mcg PO ACBREAKFAST [facility] Last Admin: 09/08/17 07:45 Dose: 100 mcg Loratadine (Claritin) 10 mg PO DAILY [facility] Last Admin: 09/08/17 08:32 Dose: 10 mg Magnesium Hydroxide (Milk Of Magnesia) 30 ml PO BID PRN PRN Reason: Constipation Ondansetron HCl (Zofran) 8 mg IVPUSH Q4H PRN PRN Reason: Nausea/Vomiting Oxycodone/Acetaminophen (Percocet 325-5 Mg) 2 tab PO Q4H PRN PRN Reason: Pain Pneumococcal Polyvalent Vaccine (Pneumovax 23) 0.5 ml IM .ONCE ONE Stop: 09/08/17 10:01 Prednisone (Prednisone) 10 mg PO DAILY [facility] Last Admin: 09/08/17 08:33 Dose: 10 mg Senna (Senna) 8.6 mg PO BID PRN PRN Reason: Constipation Sodium Chloride (Saline Flush) 10 ml FLUSH ASDIRECTED PRN PRN Reason: Keep Vein Open Last Admin: 09/07/17 05:01 Dose: 10 ml Zolpidem Tartrate (Ambien) 5 mg PO BEDTIME PRN PRN Reason: Sleep Last Admin: 09/07/17 23:18 Dose: 5 mg Discontinued Medications Hydrocodone Bitart/Acetaminophen ([place] 325-5 Mg) 2 tab PO Q4H PRN PRN Reason: Pain Hydrocodone Bitart/Acetaminophen ([place] 325-5 Mg) 2 tab PO Q4H PRN PRN Reason: Pain Last Admin: 09/08/17 07:27 Dose: 2 tab Bupivacaine HCl/Epinephrine Bitart (Marcaine 0.5%/Epinephrine 1:200,000) Confirm Administered Dose 50 ml .ROUTE .STK-MED ONE Stop: 09/07/17 10:12 Last Admin: 09/07/17 13:35 Dose: 20 ml Carisoprodol (Soma) 350 mg PO BEDTIME [facility]ORM Diazepam (Valium.) 5 mg PO Q6H PRN PRN Reason: Spasms Last Admin: 09/08/17 07:34 Dose: 5 mg Diphenhydramine HCl (Benadryl) 25 mg IVPUSH Q4H PRN PRN Reason: Itching Fentanyl (Sublimaze) Confirm Administered Dose 100 mcg .ROUTE .STK-MED ONE Stop: 09/07/17 10:00 Gentamicin Sulfate (Gentamicin) Confirm Administered Dose 240 mg .ROUTE .STK- MED ONE Stop: 09/07/17 10:11 Last Admin: 09/07/17 12:20 Dose: 240 mg Hydrocortisone Sodium Succinate (Solu-Cortef) 100 mg IVPUSH ONETIME ONE Stop: 09/07/17 11:46 Last Admin: 09/07/17 11:54 Dose: 100 mg Hydromorphone HCl (Dilaudid) 0.5 mg IVPUSH ONETIME ONE Stop: 09/07/17 04:44 Last Admin: 09/07/17 04:59 Dose: 0.5 mg Hydromorphone HCl (Dilaudid) 1 mg IVPUSH ONETIME ONE Stop: 09/07/17 05:51 Last Admin: 09/07/17 06:19 Dose: 1 mg Hydromorphone HCl (Dilaudid) 1 mg IVPUSH ONETIME ONE Stop: 09/07/17 07:49 Last Admin: 09/07/17 07:56 Dose: 1 mg Hydromorphone HCl (Dilaudid) 0.5 mg IVPUSH Q1H PRN PRN Reason: PAIN Last Admin: 09/07/17 10:06 Dose: 0.5 mg Sodium Chloride (Normal Saline) 1,000 mls @ 250 mls/hr IV ASDIRECTED NORM Last Admin: 09/07/17 04:58 Dose: 250 mls/hr Clindamycin Phosphate 600 mg/ (Sodium Chloride) 54 mls @ 100 mls/hr IV ONETIME ONE Stop: 09/07/17 08:32 Last Admin: 09/07/17 07:55 Dose: 100 mls/hr Clindamycin Phosphate 600 mg/ (Sodium Chloride) 54 mls @ 100 mls/hr IV ONCALL ONE Stop: 09/07/17 12:32 Last Admin: 09/07/17 12:03 Dose: 100 mls/hr Acetaminophen 1,000 mg/ Premix 100 mls @ 400 mls/hr IV NOW ONE Stop: 09/07/17 14:44 Last Admin: 09/07/17 14:59 Dose: 400 mls/hr Clindamycin Phosphate 600 mg/ (Sodium Chloride) 54 mls @ 100 mls/hr IV Q6H [facility] Stop: 09/08/17 06:33 Last Admin: 09/08/17 05:01 Dose: 100 mls/hr Influenza Virus Vaccine (Pharmacy To Dose - Influenza Vaccine) 1 each IM ONETIME ONE Stop: 09/07/17 09:44 Last Admin: 09/08/17 09:35 Dose: Not Given Midazolam HCl (Versed 1 Mg/Ml) Confirm Administered Dose 2 mg .ROUTE .STK-MED ONE Stop: 09/07/17 10:00 Midazolam HCl (Versed 1 Mg/Ml) Confirm Administered Dose 2 mg .ROUTE .STK-MED ONE Stop: 09/07/17 12:33 Midazolam HCl (Versed 1 Mg/Ml) Confirm Administered Dose 2 mg .ROUTE .STK-MED ONE Stop: 09/07/17 12:53 Morphine Sulfate (Morphine) 2 mg IVPUSH Q2H PRN PRN Reason: Pain Naloxone HCl (Narcan) 0.1 mg IVPUSH ONETIME PRN PRN Reason: Oversedation Stop: 09/07/17 23:00 Phenylephrine HCl (Chin-Synephrine) Confirm Administered Dose 10 mg .ROUTE .STK- MED ONE Stop: 09/07/17 12:49 Povidone Iodine (Betadine 10% Soln) Confirm Administered Dose 1 ml .ROUTE .STK- MED ONE Stop: 09/07/17 10:12 Last Admin: 09/07/17 13:06 Dose: 30 ml Propofol (Diprivan 20 Ml) Confirm Administered Dose 200 mg .ROUTE .STK-MED ONE Stop: 09/07/17 10:00 Propofol (Diprivan 20 Ml) Confirm Administered Dose 400 mg .ROUTE .STK-MED ONE Stop: 09/07/17 13:05 Tramadol HCl (Ultram) 100 mg PO Q6H PRN PRN Reason: Pain Last Admin: 09/08/17 01:08 Dose: 100 mg - Exam General: Alert, Oriented Extremities: Normal Inspection, No Pedal Edema, Normal Capillary Refill Peripheral Pulses: 2+: Dorsalis Pedis (L), Dorsalis Pedis (R) Skin: Warm, Dry, Intact Wound/Incisions: Healing Well, Dressing Dry and Intact Neurological: No New Focal Deficit Psy/Mental Status: Alert - Problem List Review Problem List Initiated/Reviewed/Updated: Yes - My Orders Last 24 Hours: My Active Orders 09/07/17 13:47 Ambulate [RC] QID Intake and Output [RC] QSHIFT May Shower [RC] ASDIRECTED Pulse Oximetry [RC] CONTINUOUS RT Incentive Spirometry [RC] Q2HWA Up to Chair [RC] QID Vital Signs [RC] PER UNIT ROUTINE Wound Care [RC] Q12H OT Evaluation and Treatment [CONS] Routine PT Evaluation and Treatment [CONS] Routine Alum Hydrox/Mag Hydrox/Simeth [Mag-Al Plus] 30 ml PO Q4H PRN Bisacodyl [Dulcolax] 10 mg PO DAILY PRN Magnesium Hydroxide [Milk of Magnesia] 30 ml PO BID PRN Ondansetron [Zofran] 8 mg IVPUSH Q4H PRN Sennosides [Senna] 8.6 mg PO BID PRN Zolpidem [Ambien] 5 mg PO BEDTIME PRN Sequential Compression Device [OM.PC] Per Unit Routine Resuscitation Status Routine 09/07/17 14:00 Convert IV to Saline Lock [OM.PC] PER UNIT ROUTINE Ice Therapy [OM.PC] PER UNIT ROUTINE 09/07/17 21:00 Docusate Sodium [Colace] 100 mg PO BID 09/07/17 Lunch Advance Diet Instructions [DIET] 09/08/17 09:00 Aspirin [Ecotrin] 325 mg PO DAILY Gabapentin [Neurontin] 400 mg PO TID 09/08/17 09:07 hydrOXYzine HCl [Vistaril] 100 mg IM Q4H PRN 09/08/17 09:08 Acetaminophen/oxyCODONE [Percocet 325-5 MG] 2 tab PO Q4H PRN - Plan Plan:: ASSESSMENT AND PLAN RIGHT HIP FRACTURE patient is POD 1 of a right hip hemiarthroplasty. We are going to change her pain medication from norco to percocet. I will add visteril to her regime. We will dc the norco, dilaudid, and ultram. She will continue to work with PT/OT for strengthening. She can be dcd from pulse ox.
[2017-09-08] MEDS ORDERED: FLU Vacc QS 2017-18 (36mos UP)/PF 60 MCG/0.5 ML Syringe IM ONE (10:00)
[2017-09-08] MEDS ORDERED: Pneumococcal Polyvalent-23 Vaccine 0.5 ML SDV IM ONE (10:00)
[2017-09-08] MEDS: Gabapentin 400 MG Cap PO SCH ×3 (10:36→22:52)
[2017-09-08] MEDS: hydrOXYzine HCl 100 MG/2 ML SDV IM PRN ×2 (10:45→19:40)
[2017-09-08] MEDS: Acetaminophen/oxyCODONE 325-5 MG Tab PO PRN ×3 (12:55→20:57)
[2017-09-08] MEDS ORDERED: Acetaminophen/HYDROcodone 325-5 MG Tab PO PRN (13:51)
--- NOTE | 2017-09-08 14:13 | PCM.PN ---
- General Info Date of Service: 09/08/17 Subjective Update: This patient has been fairly stable following surgical repair of a hip fracture yesterday. Vital signs have been good and she has remained afebrile. Continues to experience pain and ability to ambulate has been slow. Functional Status: Reports: Pain Controlled, Tolerating Diet - Review of Systems General: Reports: Weakness. Denies: Fever, Chills Pulmonary: Reports: No Symptoms Cardiovascular: Reports: No Symptoms Gastrointestinal: Reports: No Symptoms Musculoskeletal: Reports: Leg Pain - Patient Data Vitals - Most Recent: Last Vital Signs Temp 98.9 F 09/08/17 12:52 Pulse 97 09/08/17 12:52 Resp 16 09/08/17 12:52 BP 119/59 L 09/08/17 12:52 Pulse Ox 99 09/08/17 12:52 Weight - Most Recent: 112 lb I&O - Last 24 Hours: Intake & Output 09/07/17 09/08/17 09/08/17 22:59 06:59 14:59 Intake Total 1810 1818 600 Output Total 1000 2300 Balance 810 -482 600 Lab Results Last 24 Hours: Laboratory Results - last 24 hr 09/08/17 09/08/17 Range/Units 05:45 05:45 WBC 8.6 (4.5-11.0) K/uL RBC 3.14 L (3.30-5.50) M/uL Hgb 10.6 L (12.0-15.0) g/dL Hct 33.1 L (36.0-48.0) % MCV 105 H (80-98) fL MCH 34 H (27-31) pg MCHC 32 (32-36) % Plt Count 249 (150-400) K/uL Neut % (Auto) 67 H (36-66) % Lymph % (Auto) 24 (24-44) % [place] % (Auto) 6 (2-6) % Eos % (Auto) 3 (2-4) % Baso % (Auto) 1 (0-1) % Sodium 138 L (140-148) mmol/L Potassium 3.9 (3.6-5.2) mmol/L Chloride 106 (100-108) mmol/L Carbon Dioxide 25 (21-32) mmol/L Anion Gap 10.9 (5.0-14.0) mmol/L BUN 11 (7-18) mg/dL Creatinine 0.7 (0.6-1.0) mg/dL Est Cr Clr Drug Dosing 67.69 mL/min Estimated GFR (MDRD) > 60 (>60) Glucose 94 (74-106) mg/dL Calcium 8.0 L (8.5-10.1) mg/dL Total Bilirubin 0.2 (0.2-1.0) mg/dL AST 48 H (15-37) U/L ALT 47 (12-78) U/L Alkaline Phosphatase 65 (46-116) U/L Total Protein 5.3 L (6.4-8.2) g/dL Albumin 2.6 L (3.4-5.0) g/dL Globulin 2.7 (2.3-3.5) g/dL Albumin/Globulin Ratio 1.0 L (1.2-2.2) Med Orders - Current: Current Medications Al Hydroxide/Mg Hydroxide (Mag-Al Plus) 30 ml PO Q4H PRN PRN Reason: Constipation Amitriptyline HCl (Elavil) 75 mg PO BEDTIME [facility] Last Admin: 09/07/17 20:50 Dose: 75 mg Aspirin (Ecotrin) 325 mg PO DAILY [facility] Last Admin: 09/08/17 08:33 Dose: 325 mg Bisacodyl (Dulcolax) 10 mg PO DAILY PRN PRN Reason: Constipation Calcium Carbonate (Caltrate 600+D 1500 Mg-400 Units) 1 tab PO BID [facility] Last Admin: 09/08/17 08:32 Dose: 1 tab Carisoprodol (Soma) 350 mg PO QID PRN PRN Reason: Muscle Spasm Last Admin: 09/08/17 08:46 Dose: 350 mg Cholecalciferol (Vitamin D3) 5,000 units PO DAILY [facility] Last Admin: 09/08/17 08:34 Dose: 5,000 units Cyanocobalamin (Vitamin B12) 1,000 mcg SL DAILY [facility] Last Admin: 09/08/17 08:33 Dose: 1,000 mcg Docusate Sodium (Colace) 100 mg PO BID [facility] Last Admin: 09/08/17 08:33 Dose: 100 mg Escitalopram Oxalate (Lexapro) 10 mg PO DAILY [facility] Last Admin: 09/08/17 08:33 Dose: 10 mg Famotidine (Pepcid) 40 mg PO BID [facility] Last Admin: 09/08/17 08:33 Dose: 40 mg Gabapentin (Neurontin) 400 mg PO TID [facility] Stop: 09/12/17 09:01 Last Admin: 09/08/17 10:36 Dose: 400 mg Hydromorphone HCl (Dilaudid) 0.5 - 1 mg IVPUSH Q1H PRN PRN Reason: Pain Last Admin: 09/08/17 08:46 Dose: 1 mg Hydroxyzine HCl (Vistaril) 100 mg IM Q4H PRN PRN Reason: Pain Last Admin: 09/08/17 10:45 Dose: 100 mg Sodium Chloride (Normal Saline) 1,000 mls @ 150 mls/hr IV ASDIRECTED [facility] Last Admin: 09/08/17 05:01 Dose: 150 mls/hr Levothyroxine Sodium (Synthroid) 100 mcg PO ACBREAKFAST [facility] Last Admin: 09/08/17 07:45 Dose: 100 mcg Loratadine (Claritin) 10 mg PO DAILY [facility] Last Admin: 09/08/17 08:32 Dose: 10 mg Magnesium Hydroxide (Milk Of Magnesia) 30 ml PO BID PRN PRN Reason: Constipation Ondansetron HCl (Zofran) 8 mg IVPUSH Q4H PRN PRN Reason: Nausea/Vomiting Oxycodone/Acetaminophen (Percocet 325-5 Mg) 2 tab PO Q4H PRN PRN Reason: Pain Last Admin: 09/08/17 12:55 Dose: 2 tab Prednisone (Prednisone) 10 mg PO DAILY [facility] Last Admin: 09/08/17 08:33 Dose: 10 mg Senna (Senna) 8.6 mg PO BID PRN PRN Reason: Constipation Sodium Chloride (Saline Flush) 10 ml FLUSH ASDIRECTED PRN PRN Reason: Keep Vein Open Last Admin: 09/07/17 05:01 Dose: 10 ml Zolpidem Tartrate (Ambien) 5 mg PO BEDTIME PRN PRN Reason: Sleep Last Admin: 09/07/17 23:18 Dose: 5 mg Discontinued Medications Hydrocodone Bitart/Acetaminophen ([place] 325-5 Mg) 2 tab PO Q4H PRN PRN Reason: Pain Hydrocodone Bitart/Acetaminophen ([place] 325-5 Mg) 2 tab PO Q4H PRN PRN Reason: Pain Last Admin: 09/08/17 07:27 Dose: 2 tab Bupivacaine HCl/Epinephrine Bitart (Marcaine 0.5%/Epinephrine 1:200,000) Confirm Administered Dose 50 ml .ROUTE .STK-MED ONE Stop: 09/07/17 10:12 Last Admin: 09/07/17 13:35 Dose: 20 ml Carisoprodol (Soma) 350 mg PO BEDTIME [facility]ORM Diazepam (Valium.) 5 mg PO Q6H PRN PRN Reason: Spasms Last Admin: 09/08/17 07:34 Dose: 5 mg Diphenhydramine HCl (Benadryl) 25 mg IVPUSH Q4H PRN PRN Reason: Itching Fentanyl (Sublimaze) Confirm Administered Dose 100 mcg .ROUTE .STK-MED ONE Stop: 09/07/17 10:00 Gentamicin Sulfate (Gentamicin) Confirm Administered Dose 240 mg .ROUTE .STK- MED ONE Stop: 09/07/17 10:11 Last Admin: 09/07/17 12:20 Dose: 240 mg Hydrocortisone Sodium Succinate (Solu-Cortef) 100 mg IVPUSH ONETIME ONE Stop: 09/07/17 11:46 Last Admin: 09/07/17 11:54 Dose: 100 mg Hydromorphone HCl (Dilaudid) 0.5 mg IVPUSH ONETIME ONE Stop: 09/07/17 04:44 Last Admin: 09/07/17 04:59 Dose: 0.5 mg Hydromorphone HCl (Dilaudid) 1 mg IVPUSH ONETIME ONE Stop: 09/07/17 05:51 Last Admin: 09/07/17 06:19 Dose: 1 mg Hydromorphone HCl (Dilaudid) 1 mg IVPUSH ONETIME ONE Stop: 09/07/17 07:49 Last Admin: 09/07/17 07:56 Dose: 1 mg Hydromorphone HCl (Dilaudid) 0.5 mg IVPUSH Q1H PRN PRN Reason: PAIN Last Admin: 09/07/17 10:06 Dose: 0.5 mg Sodium Chloride (Normal Saline) 1,000 mls @ 250 mls/hr IV ASDIRECTED NORM Last Admin: 09/07/17 04:58 Dose: 250 mls/hr Clindamycin Phosphate 600 mg/ (Sodium Chloride) 54 mls @ 100 mls/hr IV ONETIME ONE Stop: 09/07/17 08:32 Last Admin: 09/07/17 07:55 Dose: 100 mls/hr Clindamycin Phosphate 600 mg/ (Sodium Chloride) 54 mls @ 100 mls/hr IV ONCALL ONE Stop: 09/07/17 12:32 Last Admin: 09/07/17 12:03 Dose: 100 mls/hr Acetaminophen 1,000 mg/ Premix 100 mls @ 400 mls/hr IV NOW ONE Stop: 09/07/17 14:44 Last Admin: 09/07/17 14:59 Dose: 400 mls/hr Clindamycin Phosphate 600 mg/ (Sodium Chloride) 54 mls @ 100 mls/hr IV Q6H NORM Stop: 09/08/17 06:33 Last Admin: 09/08/17 05:01 Dose: 100 mls/hr Influenza Virus Vaccine (Pharmacy To Dose - Influenza Vaccine) 1 each IM ONETIME ONE Stop: 09/07/17 09:44 Last Admin: 09/08/17 09:35 Dose: Not Given Influenza Virus Vaccine (Fluzone Quad 2587-0307) 60 mcg IM .ONCE ONE Stop: 09/08/17 10:01 Midazolam HCl (Versed 1 Mg/Ml) Confirm Administered Dose 2 mg .ROUTE .STK-MED ONE Stop: 09/07/17 10:00 Midazolam HCl (Versed 1 Mg/Ml) Confirm Administered Dose 2 mg .ROUTE .STK-MED ONE Stop: 09/07/17 12:33 Midazolam HCl (Versed 1 Mg/Ml) Confirm Administered Dose 2 mg .ROUTE .STK-MED ONE Stop: 09/07/17 12:53 Morphine Sulfate (Morphine) 2 mg IVPUSH Q2H PRN PRN Reason: Pain Naloxone HCl (Narcan) 0.1 mg IVPUSH ONETIME PRN PRN Reason: Oversedation Stop: 09/07/17 23:00 Phenylephrine HCl (Chin-Synephrine) Confirm Administered Dose 10 mg .ROUTE .STK- MED ONE Stop: 09/07/17 12:49 Pneumococcal Polyvalent Vaccine (Pneumovax 23) 0.5 ml IM .ONCE ONE Stop: 09/08/17 10:01 Povidone Iodine (Betadine 10% Soln) Confirm Administered Dose 1 ml .ROUTE .STK- MED ONE Stop: 09/07/17 10:12 Last Admin: 09/07/17 13:06 Dose: 30 ml Propofol (Diprivan 20 Ml) Confirm Administered Dose 200 mg .ROUTE .STK-MED ONE Stop: 09/07/17 10:00 Propofol (Diprivan 20 Ml) Confirm Administered Dose 400 mg .ROUTE .STK-MED ONE Stop: 09/07/17 13:05 Tramadol HCl (Ultram) 100 mg PO Q6H PRN PRN Reason: Pain Last Admin: 09/08/17 01:08 Dose: 100 mg - Exam Quality Assessment: DVT Prophylaxis General: Alert, Oriented, Cooperative, Moderate Distress Lungs: Clear to Auscultation, Normal Respiratory Effort Cardiovascular: Regular Rate, Regular Rhythm, No Murmurs GI/Abdominal Exam: Normal Bowel Sounds, Soft, Non-Tender, No Organomegaly Extremities: No Pedal Edema Skin: Warm, Dry - Problem List Review Problem List Initiated/Reviewed/Updated: Yes - My Orders Last 24 Hours: My Active Orders 09/07/17 17:49 Carisoprodol [Soma] 350 mg PO QID PRN 09/07/17 21:00 Amitriptyline [Elavil] 75 mg PO BEDTIME Calcium Carbonate/Vitamin D3 [Caltrate 600+D 1500 MG-400 Units] 1 tab PO BID Famotidine [Pepcid] 40 mg PO BID 09/08/17 07:30 Levothyroxine [Synthroid] 100 mcg PO ACBREAKFAST 09/08/17 09:00 Cholecalciferol (Vitamin D3) [Vitamin D3] 5,000 units PO DAILY Cyanocobalamin (Vitamin B12) [Vitamin B12] 1,000 mcg SL DAILY Escitalopram [Lexapro] 10 mg PO DAILY Loratadine [Claritin] 10 mg PO DAILY predniSONE 10 mg PO DAILY - Plan Plan:: ASSESSMENT AND PLAN RIGHT HIP STATUS post surgical repair of hip fracture yesterday by Dr. Ghotra -Postoperative care and management per Dr. Ghotra IATROGENIC ADRENAL INSUFFICIENCY-chronic prednisone use -Continue daily prednisone OSTEOPOROSIS -Continue outpatient calcium supplement and vitamin D MAINTENANCE ISSUES -DVT prophylaxis; SCUDs -GI prophylaxis; not indicated -[place] catheter; short-term placement for management after surgery -Nutrition; nothing by mouth until after surgery -Nicotine dependence; CODE STATUS-FULL CODE ADMISSION STATUS-patient will be admitted to inpatient status, expect at least a 2 night hospital stay for evaluation and management of problems as outlined above. At the time of this admission I do not reasonably expected evaluation and management of this problem will require more than a 96 hour hospital stay. DISPOSITION-anticipate discharge to home after the hospital stay.
[2017-09-08] MEDS: Amitriptyline 25 MG Tab PO SCH (20:59)
[2017-09-08] MEDS: Zolpidem 5 MG Tab PO PRN (21:02)
[2017-09-09] MEDS: Acetaminophen/oxyCODONE 325-5 MG Tab PO PRN ×5 (00:51→18:41)
[2017-09-09] MEDS: Levothyroxine 100 MCG Tab PO SCH (07:53)
[2017-09-09] MEDS: HYDROmorphone 0.5 MG/0.5 ML Syringe IVPUSH PRN ×3 (07:54→13:10)
[2017-09-09] MEDS: Calcium Carbonate/Vitamin D3 1500 MG-400 Units Tab PO SCH ×2 (08:26→21:13)
[2017-09-09] MEDS: Aspirin 325 MG Tab.EC PO SCH (08:26)
[2017-09-09] MEDS: Loratadine 10 MG Tab PO SCH (08:26)
[2017-09-09] MEDS: Docusate Sodium 100 MG Cap PO SCH ×2 (08:26→21:13)
[2017-09-09] MEDS: Escitalopram 10 MG Tab PO SCH (08:27)
[2017-09-09] MEDS: Gabapentin 400 MG Cap PO SCH ×3 (08:27→21:14)
[2017-09-09] MEDS: Famotidine 20 MG Tab PO SCH ×2 (08:32→21:14)
[2017-09-09] MEDS: Cholecalciferol (Vitamin D3) 1,000 Unit Tab PO SCH (08:33)
[2017-09-09] MEDS: Cyanocobalamin (Vitamin B12) 1,000 MCG Tab SL SCH (08:33)
[2017-09-09] MEDS: predniSONE 10 MG Tab PO SCH (08:33)
--- NOTE | 2017-09-09 11:50 | PCM.PN ---
- General Info Date of Service: 09/09/17 Subjective Update: This patient has remained stable since yesterday, there has been some improvement, she is been ambulating in hallways with assistance. Reports that her pain control is been fairly adequate. Vital signs have been stable and she has remained afebrile. Functional Status: Reports: Pain Controlled, Tolerating Diet, Ambulating - Review of Systems General: Reports: Weakness. Denies: Fever, Chills Pulmonary: Reports: No Symptoms Cardiovascular: Reports: No Symptoms Gastrointestinal: Reports: No Symptoms Musculoskeletal: Reports: Leg Pain, Joint Pain - Patient Data Vitals - Most Recent: Last Vital Signs Temp 98.0 F 09/09/17 10:45 Pulse 102 H 09/09/17 10:45 Resp 18 09/09/17 10:45 BP 99/47 L 09/09/17 10:45 Pulse Ox 93 L 09/09/17 10:45 Weight - Most Recent: 111 lb 15.988 oz I&O - Last 24 Hours: Intake & Output 09/08/17 09/09/17 09/09/17 22:59 06:59 14:59 Intake Total 600 270 240 Output Total 2400 Balance -1800 270 240 Med Orders - Current: Current Medications Al Hydroxide/Mg Hydroxide (Mag-Al Plus) 30 ml PO Q4H PRN PRN Reason: Constipation Amitriptyline HCl (Elavil) 75 mg PO BEDTIME [facility] Last Admin: 09/08/17 20:59 Dose: 75 mg Aspirin (Ecotrin) 325 mg PO DAILY [facility] Last Admin: 09/09/17 08:26 Dose: 325 mg Bisacodyl (Dulcolax) 10 mg PO DAILY PRN PRN Reason: Constipation Calcium Carbonate (Caltrate 600+D 1500 Mg-400 Units) 1 tab PO BID [facility] Last Admin: 09/09/17 08:26 Dose: 1 tab Carisoprodol (Soma) 350 mg PO QID PRN PRN Reason: Muscle Spasm Last Admin: 09/09/17 08:38 Dose: 350 mg Cholecalciferol (Vitamin D3) 5,000 units PO DAILY [facility] Last Admin: 09/09/17 08:33 Dose: 5,000 units Cyanocobalamin (Vitamin B12) 1,000 mcg SL DAILY [facility] Last Admin: 09/09/17 08:33 Dose: 1,000 mcg Docusate Sodium (Colace) 100 mg PO BID [facility] Last Admin: 09/09/17 08:26 Dose: 100 mg Escitalopram Oxalate (Lexapro) 10 mg PO DAILY [facility] Last Admin: 09/09/17 08:27 Dose: 10 mg Famotidine (Pepcid) 40 mg PO BID [facility] Last Admin: 09/09/17 08:32 Dose: 40 mg Gabapentin (Neurontin) 400 mg PO TID [facility] Stop: 09/12/17 09:01 Last Admin: 09/09/17 08:27 Dose: 400 mg Hydromorphone HCl (Dilaudid) 0.5 - 1 mg IVPUSH Q1H PRN PRN Reason: Pain Last Admin: 09/09/17 11:20 Dose: 1 mg Hydroxyzine HCl (Vistaril) 100 mg IM Q4H PRN PRN Reason: Pain Last Admin: 09/08/17 19:40 Dose: 100 mg Levothyroxine Sodium (Synthroid) 100 mcg PO ACBREAKFAST [facility] Last Admin: 09/09/17 07:53 Dose: 100 mcg Loratadine (Claritin) 10 mg PO DAILY [facility] Last Admin: 09/09/17 08:26 Dose: 10 mg Magnesium Hydroxide (Milk Of Magnesia) 30 ml PO BID PRN PRN Reason: Constipation Ondansetron HCl (Zofran) 8 mg IVPUSH Q4H PRN PRN Reason: Nausea/Vomiting Oxycodone/Acetaminophen (Percocet 325-5 Mg) 2 tab PO Q4H PRN PRN Reason: Pain Last Admin: 09/09/17 09:24 Dose: 2 tab Prednisone (Prednisone) 10 mg PO DAILY [facility] Last Admin: 09/09/17 08:33 Dose: 10 mg Senna (Senna) 8.6 mg PO BID PRN PRN Reason: Constipation Sodium Chloride (Saline Flush) 10 ml FLUSH ASDIRECTED PRN PRN Reason: Keep Vein Open Last Admin: 09/07/17 05:01 Dose: 10 ml Zolpidem Tartrate (Ambien) 5 mg PO BEDTIME PRN PRN Reason: Sleep Last Admin: 09/08/17 21:02 Dose: 5 mg Discontinued Medications Hydrocodone Bitart/Acetaminophen ([place] 325-5 Mg) 2 tab PO Q4H PRN PRN Reason: Pain Hydrocodone Bitart/Acetaminophen ([place] 325-5 Mg) 2 tab PO Q4H PRN PRN Reason: Pain Last Admin: 09/08/17 07:27 Dose: 2 tab Bupivacaine HCl/Epinephrine Bitart (Marcaine 0.5%/Epinephrine 1:200,000) Confirm Administered Dose 50 ml .ROUTE .STK-MED ONE Stop: 09/07/17 10:12 Last Admin: 09/07/17 13:35 Dose: 20 ml Carisoprodol (Soma) 350 mg PO BEDTIME NORM Diazepam (Valium.) 5 mg PO Q6H PRN PRN Reason: Spasms Last Admin: 09/08/17 07:34 Dose: 5 mg Diphenhydramine HCl (Benadryl) 25 mg IVPUSH Q4H PRN PRN Reason: Itching Fentanyl (Sublimaze) Confirm Administered Dose 100 mcg .ROUTE .STK-MED ONE Stop: 09/07/17 10:00 Gentamicin Sulfate (Gentamicin) Confirm Administered Dose 240 mg .ROUTE .STK- MED ONE Stop: 09/07/17 10:11 Last Admin: 09/07/17 12:20 Dose: 240 mg Hydrocortisone Sodium Succinate (Solu-Cortef) 100 mg IVPUSH ONETIME ONE Stop: 09/07/17 11:46 Last Admin: 09/07/17 11:54 Dose: 100 mg Hydromorphone HCl (Dilaudid) 0.5 mg IVPUSH ONETIME ONE Stop: 09/07/17 04:44 Last Admin: 09/07/17 04:59 Dose: 0.5 mg Hydromorphone HCl (Dilaudid) 1 mg IVPUSH ONETIME ONE Stop: 09/07/17 05:51 Last Admin: 09/07/17 06:19 Dose: 1 mg Hydromorphone HCl (Dilaudid) 1 mg IVPUSH ONETIME ONE Stop: 09/07/17 07:49 Last Admin: 09/07/17 07:56 Dose: 1 mg Hydromorphone HCl (Dilaudid) 0.5 mg IVPUSH Q1H PRN PRN Reason: PAIN Last Admin: 09/07/17 10:06 Dose: 0.5 mg Sodium Chloride (Normal Saline) 1,000 mls @ 250 mls/hr IV ASDIRECTED NORM Last Admin: 09/07/17 04:58 Dose: 250 mls/hr Clindamycin Phosphate 600 mg/ (Sodium Chloride) 54 mls @ 100 mls/hr IV ONETIME ONE Stop: 09/07/17 08:32 Last Admin: 09/07/17 07:55 Dose: 100 mls/hr Sodium Chloride (Normal Saline) 1,000 mls @ 150 mls/hr IV ASDIRECTED [facility] Last Admin: 09/08/17 05:01 Dose: 150 mls/hr Clindamycin Phosphate 600 mg/ (Sodium Chloride) 54 mls @ 100 mls/hr IV ONCALL ONE Stop: 09/07/17 12:32 Last Admin: 09/07/17 12:03 Dose: 100 mls/hr Acetaminophen 1,000 mg/ Premix 100 mls @ 400 mls/hr IV NOW ONE Stop: 09/07/17 14:44 Last Admin: 09/07/17 14:59 Dose: 400 mls/hr Clindamycin Phosphate 600 mg/ (Sodium Chloride) 54 mls @ 100 mls/hr IV Q6H NORM Stop: 09/08/17 06:33 Last Admin: 09/08/17 05:01 Dose: 100 mls/hr Influenza Virus Vaccine (Pharmacy To Dose - Influenza Vaccine) 1 each IM ONETIME ONE Stop: 09/07/17 09:44 Last Admin: 09/08/17 09:35 Dose: Not Given Influenza Virus Vaccine (Fluzone Quad [id number]) 60 mcg IM .ONCE ONE Stop: 09/08/17 10:01 Last Admin: 09/09/17 08:27 Dose: 60 mcg Midazolam HCl (Versed 1 Mg/Ml) Confirm Administered Dose 2 mg .ROUTE .STK-MED ONE Stop: 09/07/17 10:00 Midazolam HCl (Versed 1 Mg/Ml) Confirm Administered Dose 2 mg .ROUTE .STK-MED ONE Stop: 09/07/17 12:33 Midazolam HCl (Versed 1 Mg/Ml) Confirm Administered Dose 2 mg .ROUTE .STK-MED ONE Stop: 09/07/17 12:53 Morphine Sulfate (Morphine) 2 mg IVPUSH Q2H PRN PRN Reason: Pain Naloxone HCl (Narcan) 0.1 mg IVPUSH ONETIME PRN PRN Reason: Oversedation Stop: 09/07/17 23:00 Phenylephrine HCl (Chin-Synephrine) Confirm Administered Dose 10 mg .ROUTE .STK- MED ONE Stop: 09/07/17 12:49 Pneumococcal Polyvalent Vaccine (Pneumovax 23) 0.5 ml IM .ONCE ONE Stop: 09/08/17 10:01 Last Admin: 09/09/17 08:30 Dose: 0.5 ml Povidone Iodine (Betadine 10% Soln) Confirm Administered Dose 1 ml .ROUTE .STK- MED ONE Stop: 09/07/17 10:12 Last Admin: 09/07/17 13:06 Dose: 30 ml Propofol (Diprivan 20 Ml) Confirm Administered Dose 200 mg .ROUTE .STK-MED ONE Stop: 09/07/17 10:00 Propofol (Diprivan 20 Ml) Confirm Administered Dose 400 mg .ROUTE .STK-MED ONE Stop: 09/07/17 13:05 Tramadol HCl (Ultram) 100 mg PO Q6H PRN PRN Reason: Pain Last Admin: 09/08/17 01:08 Dose: 100 mg - Exam Quality Assessment: DVT Prophylaxis General: Alert, Oriented, Cooperative, Mild Distress Lungs: Clear to Auscultation, Normal Respiratory Effort Cardiovascular: Regular Rate, No Murmurs GI/Abdominal Exam: Normal Bowel Sounds, Soft, Non-Tender, No Organomegaly, No Distention Extremities: No Pedal Edema Skin: Warm, Dry - Problem List Review Problem List Initiated/Reviewed/Updated: Yes - Plan Plan:: ASSESSMENT AND PLAN RIGHT HIP STATUS post surgical repair of hip fracture yesterday by Dr. Ghotra. Functionally improved over the past 24 hours, has been able to walk in the halls with assistance -Postoperative care and management per Dr. Ghotra IATROGENIC ADRENAL INSUFFICIENCY-chronic prednisone use -Continue daily prednisone OSTEOPOROSIS -Continue outpatient calcium supplement and vitamin D MAINTENANCE ISSUES -DVT prophylaxis; SCUDs -GI prophylaxis; not indicated -Sherwood catheter; catheter has been removed -Nutrition; regular diet -Nicotine dependence; CODE STATUS-FULL CODE ADMISSION STATUS-patient will be admitted to inpatient status, expect at least a 2 night hospital stay for evaluation and management of problems as outlined above. At the time of this admission I do not reasonably expected evaluation and management of this problem will require more than a 96 hour hospital stay. DISPOSITION-anticipate discharge to jail tomorrow.
[2017-09-09] MEDS: Amitriptyline 25 MG Tab PO SCH (21:13)
[2017-09-09] MEDS: Zolpidem 5 MG Tab PO PRN (21:14)
[2017-09-09] MEDS: hydrOXYzine HCl 100 MG/2 ML SDV IM PRN (21:14)
[2017-09-10] MEDS: Acetaminophen/oxyCODONE 325-5 MG Tab PO PRN ×3 (00:48→11:45)
[2017-09-10] MEDS: hydrOXYzine HCl 100 MG/2 ML SDV IM PRN ×2 (03:26→08:59)
[2017-09-10] MEDS: HYDROmorphone 0.5 MG/0.5 ML Syringe IVPUSH PRN (04:08)
[2017-09-10] MEDS: Levothyroxine 100 MCG Tab PO SCH (06:50)
[2017-09-10 07:05] VITALS: BP 111/57
[2017-09-10] MEDS: Famotidine 20 MG Tab PO SCH (08:56)
[2017-09-10] MEDS: Cyanocobalamin (Vitamin B12) 1,000 MCG Tab SL SCH (08:56)
[2017-09-10] MEDS: predniSONE 10 MG Tab PO SCH (08:56)
[2017-09-10] MEDS: Gabapentin 400 MG Cap PO SCH (08:57)
[2017-09-10] MEDS: Aspirin 325 MG Tab.EC PO SCH (08:57)
[2017-09-10] MEDS: Escitalopram 10 MG Tab PO SCH (08:57)
[2017-09-10] MEDS: Loratadine 10 MG Tab PO SCH (08:58)
[2017-09-10] MEDS: Calcium Carbonate/Vitamin D3 1500 MG-400 Units Tab PO SCH (08:58)
[2017-09-10] MEDS: Docusate Sodium 100 MG Cap PO SCH (08:58)
[2017-09-10] MEDS: Cholecalciferol (Vitamin D3) 1,000 Unit Tab PO SCH (08:59)
--- NOTE | 2017-09-10 10:23 | PCM.DCSUM1 ---
Discharge Summary - Hospital Course Brief History: This patient is a 61-year-old woman who fell on the morning of admission experienced and acute hip fracture of her right hip. - Discharge Data Discharge Date: 09/10/17 Discharge Disposition: DC/Tfer to SNF 03 Condition: Good - Discharge Diagnosis/Problem(s) (1) Fracture of neck of femur, hip SNOMED Code(s): 5683948 ICD Code: S72.009A - FRACTURE OF UNSP PART OF NECK OF UNSP FEMUR, INIT Status: Acute Current Visit: Yes (2) Delusional disorder SNOMED Code(s): 07037611 ICD Code: F22 - DELUSIONAL DISORDERS Status: Chronic Current Visit: No (3) Osteoporosis SNOMED Code(s): 30003577 ICD Code: M81.0 - AGE-RELATED OSTEOPOROSIS W/O CURRENT PATHOLOGICAL FRACTURE Status: Chronic Current Visit: No - Patient Summary/Data Consults: Consultations 09/07/17 13:47 OT Evaluation and Treatment [CONS] Routine Please Evaluate and Treat. OT Reason for Consult: Strengthening This query below is only for informational purposes and is not editable. Admission Diagnosis/Problem: Hip fracture requiring operative repair PT Evaluation and Treatment [CONS] Routine Please Evaluate and Treat. PT Reason for Consult: Strengthening This query below is only for informational purposes and is not editable. Admission Diagnosis/Problem: Hip fracture requiring operative repair Hospital Course: This patient is a 61-year-old woman who fell and experienced aacute fracture of her right hip on the morning of admission. She was seen and evaluated in the emergency department, x-ray showed evidence of an acute fracture of the right hip. She was seen and evaluated in the emergency department by Dr. Robby Ghotra. She was admitted to the hospital and given pain medication as well as IV hydration. She was kept on her usual medicationsduring the hospitalization. Later the on the day of admission she was taken to the operating room by Dr. Ghotra and underwent surgical repair of the right hip fracture. She was stable and did well during the postoperative course with no obvious complications during the hospitalization. She will be discharged to the long term for restorative physical therapy and occupational therapy. Follow-up will be with orthopedic surgery as recommended. Activity will be as tolerated and she will resume her usual diet. - Patient Instructions Diet: Usual Diet as Tolerated Activity: As Tolerated - Discharge Plan Home Medications: Home Meds Carisoprodol [Soma] 350 mg PO QID PRN 01/01/15 [History] predniSONE [Prednisone] 10 mg PO DAILY 01/01/15 [History] Estradiol 1.5 mg PO DAILY 01/03/15 [History] Levothyroxine [Synthroid] 100 mcg PO DAILY 01/03/15 [History] Amitriptyline [Elavil] 75 mg PO BEDTIME 08/07/15 [History] Zolpidem Tartrate 10 mg PO BEDTIME 08/09/15 [History] Pumpkin Seed Extract/Soy Germ [Azo Bladder Control Capsule] 300 mg PO DAILY [History] Hydrocodone/Acetaminophen [Hydrocodon-Acetaminoph 7.5-325] 2 tab PO Q4H PRN 12/23 [History] Multivitamin W/Iron, Minerals [Flintstones Complete] 1 each PO DAILY 09/28/16 [ History] Calcium Citrate/Vitamin D3 [Calcium Citrate + D] 1 tab PO BID 08/05/17 [History] Cholecalciferol (Vitamin D3) [Vitamin D] 5,000 units PO DAILY 08/05/17 [History] Cyanocobalamin (Vitamin B-12) [Vitamin B-12] 1,000 mcg SL DAILY 08/05/17 [ History] Loratadine 10 mg PO DAILY 08/05/17 [History] Ondansetron [Zofran ODT] 4 mg PO Q4H PRN 08/05/17 [History] Vitamin B Complex [B Complex] 1 tab PO DAILY 08/05/17 [History] Famotidine [Pepcid] 40 mg PO BID 08/06/17 [History] Escitalopram [Lexapro] 10 mg PO DAILY 09/07/17 [History] Patient Handouts: Hip Fracture, Preventing Constipation After Surgery Referrals: Bettye Iverson NP [Nurse Practitioner] - 09/27/17 1:00 pm - Patient Data Vitals - Most Recent: Last Vital Signs Temp 98.6 F 09/10/17 07:00 Pulse 89 09/10/17 07:00 Resp 18 09/10/17 07:00 BP 111/57 L 09/10/17 07:00 Pulse Ox 95 09/10/17 07:00 Weight - Most Recent: 111 lb 15.988 oz I&O - Last 24 hours: Intake & Output 09/09/17 09/10/17 09/10/17 22:59 06:59 14:59 Intake Total 1350 240 500 Output Total 900 350 Balance 450 -110 500 Med Orders - Current: Current Medications Al Hydroxide/Mg Hydroxide (Mag-Al Plus) 30 ml PO Q4H PRN PRN Reason: Constipation Amitriptyline HCl (Elavil) 75 mg PO BEDTIME [facility] Last Admin: 09/09/17 21:13 Dose: 75 mg Aspirin (Ecotrin) 325 mg PO DAILY [facility] Last Admin: 09/10/17 08:57 Dose: 325 mg Bisacodyl (Dulcolax) 10 mg PO DAILY PRN PRN Reason: Constipation Calcium Carbonate (Caltrate 600+D 1500 Mg-400 Units) 1 tab PO BID [facility] Last Admin: 09/10/17 08:58 Dose: 1 tab Carisoprodol (Soma) 350 mg PO QID PRN PRN Reason: Muscle Spasm Last Admin: 09/10/17 06:49 Dose: 350 mg Cholecalciferol (Vitamin D3) 5,000 units PO DAILY [facility] Last Admin: 09/10/17 08:59 Dose: 5,000 units Cyanocobalamin (Vitamin B12) 1,000 mcg SL DAILY [facility] Last Admin: 09/10/17 08:56 Dose: 1,000 mcg Docusate Sodium (Colace) 100 mg PO BID [facility] Last Admin: 09/10/17 08:58 Dose: 100 mg Escitalopram Oxalate (Lexapro) 10 mg PO DAILY [facility] Last Admin: 09/10/17 08:57 Dose: 10 mg Famotidine (Pepcid) 40 mg PO BID [facility] Last Admin: 09/10/17 08:56 Dose: 40 mg Gabapentin (Neurontin) 400 mg PO TID [facility] Stop: 09/12/17 09:01 Last Admin: 09/10/17 08:57 Dose: 400 mg Hydromorphone HCl (Dilaudid) 0.5 - 1 mg IVPUSH Q1H PRN PRN Reason: Pain Last Admin: 09/10/17 04:08 Dose: 1 mg Hydromorphone HCl (Dilaudid) 1 mg IM ONETIME ONE Stop: 09/10/17 10:31 Hydroxyzine HCl (Vistaril) 100 mg IM Q4H PRN PRN Reason: Pain Last Admin: 09/10/17 08:59 Dose: 100 mg Levothyroxine Sodium (Synthroid) 100 mcg PO ACBREAKFAST [facility] Last Admin: 09/10/17 06:50 Dose: 100 mcg Loratadine (Claritin) 10 mg PO DAILY [facility] Last Admin: 09/10/17 08:58 Dose: 10 mg Magnesium Hydroxide (Milk Of Magnesia) 30 ml PO BID PRN PRN Reason: Constipation Ondansetron HCl (Zofran) 8 mg IVPUSH Q4H PRN PRN Reason: Nausea/Vomiting Oxycodone/Acetaminophen (Percocet 325-5 Mg) 2 tab PO Q4H PRN PRN Reason: Pain Last Admin: 09/10/17 06:49 Dose: 2 tab Prednisone (Prednisone) 10 mg PO DAILY [facility] Last Admin: 09/10/17 08:56 Dose: 10 mg Senna (Senna) 8.6 mg PO BID PRN PRN Reason: Constipation Sodium Chloride (Saline Flush) 10 ml FLUSH ASDIRECTED PRN PRN Reason: Keep Vein Open Last Admin: 09/07/17 05:01 Dose: 10 ml Zolpidem Tartrate (Ambien) 5 mg PO BEDTIME PRN PRN Reason: Sleep Last Admin: 09/09/17 21:14 Dose: 5 mg Discontinued Medications Hydrocodone Bitart/Acetaminophen ([place] 325-5 Mg) 2 tab PO Q4H PRN PRN Reason: Pain Hydrocodone Bitart/Acetaminophen ([place] 325-5 Mg) 2 tab PO Q4H PRN PRN Reason: Pain Last Admin: 09/08/17 07:27 Dose: 2 tab Bupivacaine HCl/Epinephrine Bitart (Marcaine 0.5%/Epinephrine 1:200,000) Confirm Administered Dose 50 ml .ROUTE .STK-MED ONE Stop: 09/07/17 10:12 Last Admin: 09/07/17 13:35 Dose: 20 ml Carisoprodol (Soma) 350 mg PO BEDTIME NORM Diazepam (Valium.) 5 mg PO Q6H PRN PRN Reason: Spasms Last Admin: 09/08/17 07:34 Dose: 5 mg Diphenhydramine HCl (Benadryl) 25 mg IVPUSH Q4H PRN PRN Reason: Itching Fentanyl (Sublimaze) Confirm Administered Dose 100 mcg .ROUTE .STK-MED ONE Stop: 09/07/17 10:00 Gentamicin Sulfate (Gentamicin) Confirm Administered Dose 240 mg .ROUTE .STK- MED ONE Stop: 09/07/17 10:11 Last Admin: 09/07/17 12:20 Dose: 240 mg Hydrocortisone Sodium Succinate (Solu-Cortef) 100 mg IVPUSH ONETIME ONE Stop: 09/07/17 11:46 Last Admin: 09/07/17 11:54 Dose: 100 mg Hydromorphone HCl (Dilaudid) 0.5 mg IVPUSH ONETIME ONE Stop: 09/07/17 04:44 Last Admin: 09/07/17 04:59 Dose: 0.5 mg Hydromorphone HCl (Dilaudid) 1 mg IVPUSH ONETIME ONE Stop: 09/07/17 05:51 Last Admin: 09/07/17 06:19 Dose: 1 mg Hydromorphone HCl (Dilaudid) 1 mg IVPUSH ONETIME ONE Stop: 09/07/17 07:49 Last Admin: 09/07/17 07:56 Dose: 1 mg Hydromorphone HCl (Dilaudid) 0.5 mg IVPUSH Q1H PRN PRN Reason: PAIN Last Admin: 09/07/17 10:06 Dose: 0.5 mg Sodium Chloride (Normal Saline) 1,000 mls @ 250 [facility] Last Admin: 09/07/17 04:58 Dose: 250 mls/hr Clindamycin Phosphate 600 mg/ (Sodium Chloride) 54 mls @ 100 mls/hr IV ONETIME ONE Stop: 09/07/17 08:32 Last Admin: 09/07/17 07:55 Dose: 100 mls/hr Sodium Chloride (Normal Saline) 1,000 mls @ 150 mls/hr IV ASDIRECTED [facility] Last Admin: 09/08/17 05:01 Dose: 150 mls/hr Clindamycin Phosphate 600 mg/ (Sodium Chloride) 54 mls @ 100 mls/hr IV ONCALL ONE Stop: 09/07/17 12:32 Last Admin: 09/07/17 12:03 Dose: 100 mls/hr Acetaminophen 1,000 mg/ Premix 100 mls @ 400 mls/hr IV NOW ONE Stop: 09/07/17 14:44 Last Admin: 09/07/17 14:59 Dose: 400 mls/hr Clindamycin Phosphate 600 mg/ (Sodium Chloride) 54 mls @ 100 mls/hr IV Q6H NORM Stop: 09/08/17 06:33 Last Admin: 09/08/17 05:01 Dose: 100 mls/hr Influenza Virus Vaccine (Pharmacy To Dose - Influenza Vaccine) 1 each IM ONETIME ONE Stop: 09/07/17 09:44 Last Admin: 09/08/17 09:35 Dose: Not Given Influenza Virus Vaccine (Fluzone Quad [id number]) 60 mcg IM .ONCE ONE Stop: 09/08/17 10:01 Last Admin: 09/09/17 08:27 Dose: 60 mcg Midazolam HCl (Versed 1 Mg/Ml) Confirm Administered Dose 2 mg .ROUTE .STK-MED ONE Stop: 09/07/17 10:00 Midazolam HCl (Versed 1 Mg/Ml) Confirm Administered Dose 2 mg .ROUTE .STK-MED ONE Stop: 09/07/17 12:33 Midazolam HCl (Versed 1 Mg/Ml) Confirm Administered Dose 2 mg .ROUTE .STK-MED ONE Stop: 09/07/17 12:53 Morphine Sulfate (Morphine) 2 mg IVPUSH Q2H PRN PRN Reason: Pain Naloxone HCl (Narcan) 0.1 mg IVPUSH ONETIME PRN PRN Reason: Oversedation Stop: 09/07/17 23:00 Phenylephrine HCl (Chin-Synephrine) Confirm Administered Dose 10 mg .ROUTE .STK- MED ONE Stop: 09/07/17 12:49 Pneumococcal Polyvalent Vaccine (Pneumovax 23) 0.5 ml IM .ONCE ONE Stop: 09/08/17 10:01 Last Admin: 09/09/17 08:30 Dose: 0.5 ml Povidone Iodine (Betadine 10% Soln) Confirm Administered Dose 1 ml .ROUTE .STK- MED ONE Stop: 09/07/17 10:12 Last Admin: 09/07/17 13:06 Dose: 30 ml Propofol (Diprivan 20 Ml) Confirm Administered Dose 200 mg .ROUTE .STK-MED ONE Stop: 09/07/17 10:00 Propofol (Diprivan 20 Ml) Confirm Administered Dose 400 mg .ROUTE .STK-MED ONE Stop: 09/07/17 13:05 Tramadol HCl (Ultram) 100 mg PO Q6H PRN PRN Reason: Pain Last Admin: 09/08/17 01:08 Dose: 100 mg *Q Meaningful Use (DIS) - VTE *Q VTE Criteria *Q: - Stroke *Q Stroke Criteria *Q: - AMI *Q AMI Criteria *Q:
[2017-09-10] MEDS ORDERED: HYDROmorphone 1 MG/ML Syringe IM ONE (10:30)
--- NOTE | 2017-09-21 21:38 | OR ---
DATE OF PROCEDURE: 09/07/2017 PREOPERATIVE DIAGNOSIS: Right femoral neck fracture, closed. POSTOPERATIVE DIAGNOSIS: Right femoral neck fracture, closed. PROCEDURE: Right hip hemiarthroplasty SENIOR DATASTAGE DEVELOPER: Bettye Iverson NP. Physician assistant program director, Bettye Iverson NP, played an essential role in assisting in this case, helping to position the patient, retract structures as needed, as well as suturing and cutting sutures as indicated. Her presence improved patient's safety and decreased operative time. ANESTHESIA: Spinal plus conscious sedation. FLUID: Lactated Ringer's solution. ESTIMATED BLOOD LOSS: 100 mL. COMPLICATIONS: None. SPECIMENS: None. DISCHARGE DISPOSITION: Stable to PACU. INDICATIONS FOR THE PROCEDURE: The patient was seen in her hospital room. She was admitted for the above-mentioned diagnosis by the Hospitalist Service. Preoperative imaging confirmed the above-mentioned diagnosis. Risks and benefits of the procedure were explained to the patient, her , and informed consent was obtained. DETAILS OF PROCEDURE: The patient was seen preoperatively by myself and the anesthesia staff in her hospital room. She was brought to the operative suite by the anesthesia staff where spinal anesthesia plus conscious sedation was administered. She was placed into a left lateral recumbent position. An axillary roll was placed. All extremities were found to be well padded. The right lower extremity was then prepped and draped in a sterile manner. Time-out was called identifying the correct patient, correct procedure, the correct site, and then antibiotics had begun within appropriate period of time. An incision was made in line with the femur 7 cm proximal and distal to the tip of the greater trochanter and carried down to the deep fascia. Bleeding during the case was controlled both with bipolar electrocautery as well as an Aquamantys unit. Initial retraction was done with Gelpi's. I then went through the deep fascia and IT band. After going through the IT band, I then used a Charnley retractor for retraction. I then used Bovie electrocautery to go through the deep musculature, gluteus minimus and gluteus medius around to the greater trochanter using Bovie electrocautery from lesser trochanter all the way up to the greater trochanter, preserving a cuff tissue for closure. I then used an Army-Flint to expose the capsule, and then made a longitudinal incision with Bovie electrocautery unit along the capsule down to the level of the acetabulum. We then protected the femoral neck superiorly and inferiorly with sharp Homans, and then made my femoral neck cut. I then used a corkscrew to remove the femoral neck. We then cleared some soft tissue using rongeurs out of the fovea. I then broached serially until I had a good fit, and then trialed with my neck and head at that point. Please see the implant sheets regarding sizes. Once this was found to be in good position, I then removed all my trial components, copiously irrigated with saline, inserted my final components, and then reduced this. This provided excellent stability throughout range of motion. I then closed the deep musculature and capsule with #5 Ethibond, followed by deep fascial closure with #2 Ethibond, deep subcutaneous closure with #1 Ethibond, and then subcutaneous closure with a 3-0 Ethibond, followed by #2 STRATAFIX, #1 STRATAFIX, and then 3-0 STRATAFIX and skin sandi, followed by sterile dressing. The patient was then transferred back to her hospital bed and taken to PACU in stable condition. Enrrique Ghotra DO /[id number]
== END 2017-09-10 12:00 | DRG 470 ==
LOC: JP.ED 04:39 → JP.SDS 07:36 → JP.2SS 08:23
PROVIDERS: ADMIT Orthopaedic Surgery; ATTEND Orthopaedic Surgery
PROC: 0SRR0JZ Replacement of Right Hip Joint, Femoral Surface with Synthetic Substitute, Open Approach (ICD-10-PCS; principal; 2017-09-07)
DX: S72.091A Other fracture of head and neck of right femur, initial encounter for closed fracture (principal); E27.3 Drug-induced adrenocortical insufficiency; W18.30XA Fall on same level, unspecified, initial encounter; Y92.038 Other place in apartment as the place of occurrence of the external cause; F17.210 Nicotine dependence, cigarettes, uncomplicated; E03.9 Hypothyroidism, unspecified; G35 Multiple sclerosis; M25.551 Pain in right hip; Z23 Encounter for immunization; E55.9 Vitamin D deficiency, unspecified; F41.9 Anxiety disorder, unspecified; M81.0 Age-related osteoporosis without current pathological fracture; Z98.84 Bariatric surgery status; Z98.0 Intestinal bypass and anastomosis status; M19.90 Unspecified osteoarthritis, unspecified site; K21.9 Gastro-esophageal reflux disease without esophagitis; H54.7 Unspecified visual loss; Z79.82 Long term (current) use of aspirin; Z79.52 Long term (current) use of systemic steroids; Z91.040 Latex allergy status; Z88.5 Allergy status to narcotic agent; Z88.0 Allergy status to penicillin; Z88.8 Allergy status to other drugs, medicaments and biological substances
CPT/HCPCS: 36415; 71010 ×2; 72192; 73502 ×2; 80053; 81001; 82550; 85025; 99284; G0480; J1170 ×3; J7040; J7050 ×2; 73501-26-RT; 73501-RT; 90686; 90732; 94762; 97110-GP; 97116-GP; 97161-GP; 97162-GP; 97165-GO; 97530-GP; 97535-GP; A9270-GY; C1776; G0008; G0009; J0131; J1580; J1720; J2250; J2370; J2704; J3010; J3410; S0077

== ENCOUNTER 2017-10-01 15:53 | Emergency (ER) | payer MEDICARE, BC ==
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
[2017-10-01] MEDS ORDERED: Sodium Chloride 0.9% 1,000 ML IV SCH (16:45)
[2017-10-01 17:49] VITALS: BP 95/56
== END 2017-10-01 18:10 | disposition home or self-care (01) ==
LOC: JP.ED 15:53
DX: T50.901A Poisoning by unspecified drugs, medicaments and biological substances, accidental (unintentional), initial encounter (principal); R40.0 Somnolence; F17.210 Nicotine dependence, cigarettes, uncomplicated; Z79.82 Long term (current) use of aspirin; Z79.899 Other long term (current) drug therapy; Z88.5 Allergy status to narcotic agent; Z88.0 Allergy status to penicillin; Z91.040 Latex allergy status
CPT/HCPCS: 36415; 80053; 82550; 85025; 96360; 99284; J7040; 99283

== ENCOUNTER 2021-07-12 18:21 | Emergency (ER) | payer MEDICARE, BC, OTHER ==
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
[2021-07-12 18:33] VITALS: BP 133/68; PULSE 84
[2021-07-12] MEDS ORDERED: Acetaminophen/HYDROcodone 325-5 MG Tab PO ONE (19:21)
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
== END 2021-07-12 21:11 | disposition home or self-care (01) ==
LOC: JP.ED 18:21
DX: S12.041A Nondisplaced lateral mass fracture of first cervical vertebra, initial encounter for closed fracture (principal); S40.012A Contusion of left shoulder, initial encounter; E03.9 Hypothyroidism, unspecified; Z88.0 Allergy status to penicillin; Z88.5 Allergy status to narcotic agent; Z88.8 Allergy status to other drugs, medicaments and biological substances; Z91.040 Latex allergy status; Z79.899 Other long term (current) drug therapy; V18.0XXA Pedal cycle driver injured in noncollision transport accident in nontraffic accident, initial encounter; Y92.410 Unspecified street and highway as the place of occurrence of the external cause
CPT/HCPCS: 70450; 71250; 72125; 99284; A9270

== ENCOUNTER 2024-08-23 08:07 | Day surgery (SDC) | payer MEDICARE, BC ==
[~2024-08-23 08:07] MED LIST changes: +Midazolam 1 MG/ML 2 ML SDV ONE; -Naloxone 0.4 MG/ML SDV ONE; +Propofol 200 MG/20 ML SDV ONE; +fentaNYL 50 MCG/ML SDV ONE
[2024-08-23] MEDS: Sodium Chloride 0.9% 1,000 ML IV SCH (09:11)
[2024-08-23 11:19] VITALS: BP 112/69; PULSE 71
== END 2024-08-23 11:13 | disposition home or self-care (01) ==
LOC: JP.SDS 08:07
PROVIDERS: ATTEND Surgery
DX: R10.9 Unspecified abdominal pain (principal); K21.9 Gastro-esophageal reflux disease without esophagitis; E66.9 Obesity, unspecified; F32.A Depression, unspecified
CPT/HCPCS: 45378; J2250; J2704; J3010; J7030; 00811-QZ